=== PATIENT | male | born 1980 | race Caucasian/White ===

== ENCOUNTER 2022-03-22 09:22 | Emergency (ER) | payer OTHER, SELFPAY ==
[2022-03-22] VITALS (8 sets, daily range): BP systolic 131–136; BP diastolic 72–87; PULSE 71–77; RESP 16–18; TEMP 36.9; O2SAT 97–99; BMI 27.9
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
--- NOTE | 2022-03-22 09:56 | EKG12_ITS ---
Test Reason : Blood Pressure : / mmHG Vent. Rate : 073 BPM Atrial Rate : 073 BPM P-R Int : 150 ms QRS Dur : 088 ms QT Int : 380 ms P-R-T Axes : 069 -04 023 degrees QTc Int : 418 ms Normal sinus rhythm Normal ECG Confirmed by TASHA HULL MD ([id number]), advertising editor DUSTY BAILEY ([id number]) on 03/27/2022 12:46:37 PM Referred By: BB Confirmed By:TASHA HULL MD
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
--- NOTE | 2022-03-22 09:59 | NURSING ---
NO OLD EKGS
[2022-03-22 10:30] LABS: Absolute Lymphocyte Count 1.35 X10^3/uL (0.83-4.51); Absolute Neutrophil Count 4.6 X10^3/uL (2.0-7.7); Basophil# 0.08 X10^3/uL; Basophil% 1.2 % (0-1); Eosinophils% 1.5 % (0-5); Hematocrit 47.8 % (40-54); Hemoglobin 16.3 g/dL (13.0-16.5); Lymphocyte # 1.35 X10^3/ul (0.83-4.51); Lymphocyte % 20.1 % (19-41); Mean Corp Hgb Conc 34.1 g/dL (32-36); Mean Corpuscular Hgb 30.5 pg (27.0-32.0); Mean Corpuscular Volume 89.3 fL (80-94); Mean Platelet Vol. 8.6 fl (6.2-12.0); Monocyte# 0.64 X10^3/uL; Monocyte% 9.5 % (0-10); NRBC Flagged by Analyzer 0 % (0-5); Neutrophil # 4.55 X10^3/uL (2.7-7.7); Neutrophil % 67.6 % (47-70); Platelet Count 322 K/mm3 (150-450); RBC Distribution Width CV 12.3 % (11.6-14.6); RBC Distribution Width SD 40.3 fl (35.1-43.9); Red Blood Count 5.35 M/mm3 (4.6-6.2); White Blood Count 6.7 K/mm3 (4.4-11.0)
[2022-03-22 10:55] LABS: ALB/GLOB Ratio 1.2 RATIO (0.9-2.4); AST(SGOT) 15 U/L (15-37); Alanine Aminotransfer ALT/SGPT 34 U/L (16-61); Albumin, Serum 4.1 g/dL (3.2-5.0); Alkaline Phosphatase 100 U/L (45-117); Anion Gap 6 (5-15); BUN 12 mg/dL (7-18); BUN/Creat Ratio 12.3 RATIO (10-20); Calcium,Total 9.4 mg/dL (8.5-10.1); Chloride 104 mmol/L (98-107); Creatinine, Serum 0.97 mg/dL (0.70-1.30); EST Glomerular Filtration Rate 90 mL/min (>60); Est Glom Filt Rate - Afr Amer 109 mL/min (>60); Estimated Creatinine Clearance 102.43 ml/min; Globulin 3.4 g/dL (2.2-4.2); Glucose 103 mg/dL (74-106); Potassium 4.1 mmol/L (3.5-5.1); Protein, Total 7.5 g/dL (6.4-8.2); Sodium Level 138 mmol/L (136-145)
[2022-03-22 11:05] LABS: Alcohol, Blood (Medical)-Serum < 3.0 mg/dL
[2022-03-22 11:11] LABS: Amphetamine Urine VISTA NEGATIVE (<1000 ng/mL); Barbiturate Urine VISTA NEGATIVE (< 200 ng/mL); Benzodiazepine Urine VISTA NEGATIVE (< 200 ng/mL); Cocaine Urine VISTA NEGATIVE (< 300 ng/mL); Ecstacy Urine VISTA NEGATIVE (< 500 ng/mL); Methadone Urine VISTA NEGATIVE (< 300 ng/mL); PCP Urine VISTA NEGATIVE (< 25 ng/mL); THC Urine VISTA NEGATIVE (< 50 ng/mL); Vista UDS pH Range 7
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
[2022-03-22] MEDS: Ziprasidone IM 20 MG/ML VIAL IM (11:55)
--- NOTE | 2022-03-22 12:02 | ED.RN ---
Pt walked out of pt's room, charge nurse, AMANDA Rodriguez, and other nurses explained to pt that he is pink slipped and could not leave. per BRIAN Crabtree SO who brought pt did explain the pink slip however pt claims that did not happen. Pt started yelling curse words and stated this is fucking ridiculous Dr. Pineda gave verbal order for Geodon 20 mg. security and police called to bedside for help if needed. pt agree to take injection.
--- NOTE | 2022-03-22 12:05 | CM.ED ---
Social Work Telephone call to [facility] as patient only has VA insurance, no answer. voicemail left for admissions. Will continue to follow. Unable to work on other placement options until confirmed that VA is or not able to accept patient. Marcos ROBERTS, ANDRE-S
--- NOTE | 2022-03-22 13:16 | ED.RN ---
Pt's wallet is with security.
--- NOTE | 2022-03-22 13:41 | ED.RN ---
ZOIE HOOVER - (SISTER) REQUESTS TO BE NOTIFIED ON ANY CHANGES AND UPDATES [phone]
--- NOTE | 2022-03-22 13:49 | CM.ED ---
Social Work Telephone call to [facility], transfer center. No answer. Voicemail left. Oh note: This manager social responsibility was able to speak with another person at [facility] that confirmed the contact number for the transfer center and confirmed that the transfer center is where the referral will start. Will continue to follow. Marcos ROBERTS, ANDRE-S
--- NOTE | 2022-03-22 16:23 | CM.ED ---
Social Work Telephone call to [facility] transfer center. No answer. This manager social services did not want to leave another voicemail as to fill up the voicemail with multiple of the same. This manager social services attempted to contact psych unit at [facility] and was able to speak with a staff member. This manager social services advised that the transfer center will need to reach out before patient case can be reviewed or clinical information can be faxed. Staff on the floor advised this manager social services that there is nothing else you can do but wait for the return call. Medical team updated. Marcos ROBERTS, MIKKI
--- NOTE | 2022-03-22 20:15 | CM.ED ---
Social Work Telephone call to [facility]. Handoff provided. Clinical information faxed in the event that placement can be found overnight. Telephone call to [facility], transfer line continues to not be answering and another voicemail left for transfer center to call main ED as end of social work shift. Medical team updated on above. Marcos Gonzalez MSW, VAISHALIS
--- NOTE | 2022-03-22 20:22 | CM.ED ---
Social Work This social media marketer to patient room to update patient on status of case. Patient updated that currently waiting on [facility]ie [facility] to get in contact with [facility] ED to be able to establish placement. Patient voiced frustration and continues to ask about leaving ED. This social media marketer educating patient further on pink slip being in place. Patient inquired about getting pink slip removed removed. This social media marketer educated patient that patient going to an inpatient psychiatric facility will help with pink slip being resolved. Patient states this is annoying and does not speak further to this social media marketer. Marcos Gonzalez MSW, MIKKI
[2022-03-23] VITALS (15 sets, daily range): BP systolic 122–155; BP diastolic 80–96; PULSE 61–88; RESP 15–18; O2SAT 97–100
--- NOTE | 2022-03-23 01:13 | NURSING ---
taken care over for alaina
--- NOTE | 2022-03-23 05:16 | NURSING ---
I CALLED THE VA TWICE. ONCE AT 4:45AM AND AGAIN AT 5:05AM AND EACH TIME WHEN I WAS DIRECTED TO THE TRANSFER LINE I DID NOT GET ANY ANSWER. THE LINE JUST RANG
--- NOTE | 2022-03-23 08:06 | NURSING ---
THE [facility] NURSE TOLD ME TO CALL THE VA FIRST THING THIS MORNING TO TOUCH BASE AND SEE WHAT WAS GOING ON FAR THE VA ACCEPTING THIS PATIENT. WHEN I CALLED THE VA EVERY PERSON I TALKED TO WAS VERY RUDE. THEY SAID THEY HAD NO RECORD OF ANYONE CALLING ABOUT THIS PATIENT. I GAVE THE INFORMATION AGAIN TO THEM AND THEY SAID THEY WOULD LOOK INTO IT AND PASS IT ON TO A BANK WORKER.
--- NOTE | 2022-03-23 09:09 | ED.RN ---
This RN spoke with [facility] center nurse from the [place]. She states patient is not within network so he would be responsible for transportation. she left us with her contact information and to have the clinical chart faxed to the [place] to work on psych bed. Her #is [phone] ext [phone]. chart to be faxed to [phone]
--- NOTE | 2022-03-23 10:47 | CM.ED ---
Addendum entered by Cecille Pringle 03/23/22 11:06: Cecille states that pt has to be a resident for more than 30 days. AMANDA informed Cecille that pt is not service connected enough to get transportation benefits. Cecille states that pt will get a bill and will need to private pay for transportation as crisis will not pay for transportation. Addendum entered by Cecille Pringle 03/23/22 11:05: AMANDA reviewed chart. It appears pt has just recently moved to [place] (within the last few days). AMANDA placed a call to [facility] and spoke with Cecille. Cecille states that since pt has insurance, they cannot pay for transportation. Cecille also states pt has to be a resident for 30 daus Original Note: Social Work Note AMANDA placed a call to [facility] and spoke with Viridiana. Viridiana states she has no updates, waiting to hear back from VA. SW in to speak with pt. Pt states that he see's a neurologist and other doctor at [facility]. Pt states that he recently moved to the area. AMANDA informed pt that SW is working on getting pt placed, will keep him updated. AMANDA placed a call to Jeana at [facility]. Jeana states the chart has been given to their psychiatrist, waiting for the doctor to review. AMANDA updated Jeana that pt is VA connected in [place]. Jeana states that because SW contacted VA transfer, their psychiatrist at [facility] is able to review it. Jeana states that if the [facility] Psychiatrist does not accept then that is when Pt would need to look into going to the [facility] location. Jeana statesd that pt has no transportation benefits. AMANDA placed a call to Crisis and spoke with Cecille that [facility] is supposed to let this worker know determination on pt but that pt does not have transportation benefits so Crisis will need to assist with transportation. Cecille Pringle COST CONSULTANT, BUILDING EQUIPMENT INSPECTOR
--- NOTE | 2022-03-23 12:20 | CM.ED ---
Addendum entered by Cecille Pringle 03/23/22 13:15: Transportation is at [facility] now to transport pt. AMANDA placed a call to Jeana at [place] and updated her. Jeana states she was just called and updated and also asked for RN to call report. AMANDA updated intellectual property counsel that RN will need to call transport. Addendum entered by Cecille Pringle 03/23/22 12:23: Physician Miriam* Original Note: Social Work Note AMANDA received call from Jeana at [facility] stating pt has been accepted to [facility]. Accepting physician Dr. Verdin. Pt will have to go through Main ER and then they will take pt from there. RN to RN is [phone] ext: [phone]. AMANDA updated Physician Lucy. AMANDA faxed [place] and COVID test to [facility]. AMANDA updated that CT called pt on his phone and updated him on acceptance. Cecille Pringle ORACLE SOA CONSULTANT, SALES EXEC
--- NOTE | 2022-03-23 13:22 | NURSING ---
TRI CALLED TO JE PEACOCK AT THIS TIME.
== END 2022-03-23 13:22 ==
PROVIDERS: Emergency Medicine; Emergency Provider Emergency Medicine; Visit Provider Emergency Medicine
DX: R45.851 Suicidal ideations (principal); G10 Huntington's disease; F32.A Depression, unspecified
CPT/HCPCS: 80053; 80307; 82077; 85025; 87635; 87811; 93005; 96372; 99285; J3486; U0003; U0005

== ENCOUNTER 2024-10-08 14:01 | Emergency (ER) | payer MEDICAID, SELFPAY ==
[2024-10-08 14:03] VITALS: BP 130/86; PULSE 86; RESP 20; TEMP 36.4; O2SAT 95; BMI 34.5
[2024-10-08 14:34] VITALS: RESP 18
[2024-10-08 15:07] LABS: Absolute Lymphocyte Count 1.65 X10^3/uL (0.83-4.51); Absolute Neutrophil Count 6.4 X10^3/uL (2.0-7.7); Basophil# 0.08 X10^3/uL; Basophil% 0.9 % (0-1); Eosinophil# 0.23 X10^3/uL; Eosinophils% 2.5 % (0-5); Hematocrit 44.4 % (40-54); Lymphocyte # 1.65 X10^3/ul (0.83-4.51); Lymphocyte % 18.1 % (19-41); Mean Corp Hgb Conc 33.8 g/dL (32-36); Mean Corpuscular Hgb 29.6 pg (27.0-32.0); Mean Corpuscular Volume 87.7 fL (80-94); Mean Platelet Vol. 8.4 fl (6.2-12.0); Monocyte# 0.75 X10^3/uL; Monocyte% 8.2 % (0-10); NRBC Flagged by Analyzer 0 % (0-5); Neutrophil # 6.38 X10^3/uL (2.7-7.7); Neutrophil % 70.2 % (47-70); Platelet Count 287 K/mm3 (150-450); RBC Distribution Width CV 12.7 % (11.6-14.6); RBC Distribution Width SD 40.3 fl (35.1-43.9); Red Blood Count 5.06 M/mm3 (4.6-6.2); White Blood Count 9.1 K/mm3 (4.4-11.0)
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
[2024-10-08 15:17] LABS: Bacteria 0 SEEN /hpf (None Seen); Red Blood Cells-Urine 0 SEEN /hpf (0-5); Squamous Epithelial Cells - UA 0 SEEN /hpf (0-5)
[2024-10-08 15:19] LABS: Color, Urine Yellow (Yellow); Glucose, Dipstick Normal (Normal); Ketone-Dipstick Negative (Negative); Leukocyte Esterase-Dipstick 25 /ul (Negative); Nitrite-Dipstick Negative (Negative); Occult Blood-Urine Negative /ul (Negative); Protein-Dipstick 15 mg/dl (Negative); Urine Bilirubin Dipstick Negative (Negative); Urine Clarity Clear (Clear); Urine Urobilinogen Normal (Normal); Urine pH 6.5 (5.0 - 8.0)
[2024-10-08 15:21] LABS: Amphetamine Urine VISTA NEGATIVE (<1000 ng/mL); Barbiturate Urine VISTA NEGATIVE (< 200 ng/mL); Benzodiazepine Urine VISTA NEGATIVE (< 200 ng/mL); Cocaine Urine VISTA NEGATIVE (< 300 ng/mL); Ecstacy Urine VISTA NEGATIVE (< 500 ng/mL); Methadone Urine VISTA NEGATIVE (< 300 ng/mL); PCP Urine VISTA NEGATIVE (< 25 ng/mL); THC Urine VISTA NEGATIVE (< 50 ng/mL); Vista UDS pH Range 6
[2024-10-08 15:26] LABS: Mucous, Urine 1+ /hpf (<or=2+); White Blood Cells 0-5 SEEN /hpf (0-5)
[2024-10-08 15:26] LABS: Alcohol, Blood (Medical)-Serum < 3.0 mg/dL
[2024-10-08 15:29] LABS: Anion Gap 5 (5-15); BUN 17 mg/dL (7-18); BUN/Creat Ratio 15.5 RATIO (10-20); Calcium,Total 9.2 mg/dL (8.5-10.1); Chloride 108 mmol/L (98-107); EST Glomerular Filtration Rate 77 mL/min (>60); Est Glom Filt Rate - Afr Amer 93 mL/min (>60); Estimated Creatinine Clearance 104.93 ml/min; Glucose 126 mg/dL (74-106); Potassium 3.5 mmol/L (3.5-5.1); Sodium Level 141 mmol/L (136-145)
--- NOTE | 2024-10-08 15:30 | ED.RN ---
Pt agitated, difficult to redirect, attempting to leave, thrashing in bed, unstable on feet with concern for fall/pt safety. Meds requested from MD to assist in calming pt and keeping pt safe.
[2024-10-08] MEDS: Ziprasidone IM 20 MG/ML VIAL IM (15:35)
[2024-10-08] MEDS: Acetaminophen 325 MG Tablet 650 MG PO (15:35)
--- NOTE | 2024-10-08 15:49 | NURSING ---
[facility] CONTACTED FOR EVAL
[2024-10-08] MEDS: LORazepam 2 MG/ML Syringe IM (16:33)
--- NOTE | 2024-10-08 19:26 | ED.RN ---
KLETON FROM [facility] CALLED, SHE STATED THEY WERE REFERRING PT TO [facility]. SHE REQUESTED WE FAX A MED LIST TO [facility], AND SHE WOULD LET US KNOW IF THEY'D LIKE AN EKG DONE. FAXING MED LIST @ 1929.
--- NOTE | 2024-10-08 19:30 | ED.RN ---
Pt asked by this RN for permission to contact father in regards to completing pt's medication list. Father contacted and medication list completed. Father has no further questions at this time.
--- NOTE | 2024-10-08 20:44 | EKG12_ITS ---
Test Reason : [facility] [place] Blood Pressure : */* mmHG Vent. Rate : 82 BPM Atrial Rate : 82 BPM P-R Int : 172 ms QRS Dur : 90 ms QT Int : 358 ms P-R-T Axes : 70 25 36 degrees QTcB Int : 418 ms Normal sinus rhythm Normal ECG Confirmed by KURTIS NAVARRETE, TASHA ([id number]), publications editor TERRELL LEVY ([id number]) on 10/10/2024 6:26:41 AM Referred By: Confirmed By: TASHA HULL MD
--- NOTE | 2024-10-08 20:54 | ED.RN ---
earnest from [facility] called with accepting info for pt to [facility]. faxing pink slip and ekg to facility @ [phone].
--- NOTE | 2024-10-08 23:10 | ED.RN ---
Pt father called and left voicemail about transfer to [facility].
[2024-10-08 23:16] VITALS: BP 130/86; PULSE 86; RESP 16; TEMP 36.4; O2SAT 95
== END 2024-10-08 23:19 ==
PROVIDERS: Emergency Provider Emergency Medicine; Visit Provider Emergency Medicine
DX: R45.6 Violent behavior (principal); G10 Huntington's disease
CPT/HCPCS: 80048; 80307; 81001; 82077; 85025; 87631; 93005; 96372; 96374; 99284; J3486

== ENCOUNTER 2025-06-26 16:31 | Emergency (ER) | payer MEDICAID, SELFPAY ==
[2025-06-26 16:31] VITALS: BP 154/103; PULSE 79; RESP 16; TEMP 36.7; O2SAT 97; BMI 25.4
--- OUTSIDE RECORDS SUMMARY | 2025-06-26 17:39 | XMS RPT_ITS | CCD ---
Author Organization [facility] Care Team Providers Care Automotive Product Specialist Name Role Phone [facility] Unavailable MONICA LAM Attending Unavailable [facility] Primary Care Provider [phone] [facility] AC GOULD Attending Unavail able AC GOULD Attending Unavail [facility] SUDHAKAR CRUZ Attending Unavailab [facility] COOPER CUMMINGS Attending DORENE Hamilton Referring Unavailable DORENE OQUENDO Attending Unavailable Unavailable Primary Care Provider Unavailnima e Ray VIDEO GAME TECHNICIAN.Jessa PONCE Primary Care Provider Ray VIDEO GAME TECHNICIAN.Jessa PONCE Primary Care Provider JESSA MCGRATH Primary Care Unavailable ANANYA FERNANDEZ Referring Unavailable WALESKA OBRIEN Attending Unavailable JESSA MCGRATH Primary Care Unavailable JESSA MCGRATH Primary Care Unavailable JESSA MCGRATH Primary Care Unavailable JESSA MCGRATH Primary Care Unavailable JESSA MCGRATH Primary Care Unavailable JESSA MCGRATH Primary Care Unavailable JESSA MCGRATH Primary Care Unavailable PHYLLIS MELENDEZ Attending Unavailable MANDI RICO Referring Unavailable JESSA MCGRATH Primary Care Unavailable [place] Primary [facility] Unavailable Alberto Abdalla Attending Unavailable JESSA MCGRATH Attending Unavailable JESSA MCGRATH Referring Unavailable JESSA MCGRATH Primary Care Unavailable JESSA MCGRATH Attending Unavailable SELF Referring Unavailable JESSA MCGRATH Primary Care Unavailable Medications Current Medications Medication Drug Class(es) Dates Sig (Normalized) Sig (Original) ascorbic acid 500 mg oral tablet (2 sources) Vitamin C Start: 10-15-2024 take 1 tablet by mouth once daily VITAMIN C 500 mg tablet Take 500 mg by mouth once daily. 10/15/2024 Active Start: 03-22-2022 take 1 tablet by mouth once da mili Ascorbic Acid (Vitamin C) (Vitamin C) 500 mg Tablet Active 500 MG PO DAILY March 22, 2022 12:00am atorvastatin 20 mg oral tablet (11 sources) HMG-CoA Reductase Inhibitor Start: 10-17-2022 take 1 tablet by mouth once daily atorvastatin (LIPITOR) 20 mg tablet Take 20 mg by mouth once daily. 10/17/2022 Active Comment on above: 20 mg. doxycycline hyclate 100 mg oral tablet (4 sources) Tetracycline-cla ss Drug Start: 09-11-2024 End: 09-18-2024 take 1 tablet by mouth twice daily doxycycline (VIBRA-TABS) 100 mg tablet Take 1 tablet by mouth two times a day for 7 days. 14 tablet 09/11/2024 09/18/2024 Active Start: 07-11-2024 End: 07-16-2024 take 1 tablet by mouth twice daily doxycycline (VIBRA-TABS) 100 mg tablet Take 1 tablet by mouth two times a day for 5 days. 10 tablet 07/11/2024 07/16/2024 Active Start: 09-15-2023 End: 09-22-2023 take 1 tablet by mouth twice daily doxycycline (VIBRA-TABS) 100 mg tablet Take 1 tablet by mouth two times a day for 7 days. 14 tablet 0 09/15/2023 09/22/2023 Active Start: 08-26-2017 End: 09-05-2017 take 1 capsule by mouth twice daily doxycycline hyclate (VIBRAMYCIN) 100 MG capsule Indications: Cellulitis and abscess of leg Take 1 (one) capsule (100 mg total) by mouth 2 (two) times a day for 10 days. 20 capsule 0 08/26/2017 09/05/2017 Active Comment on above: Take 1 tablet by erum two times a day for 7 days. Fish Oils (1 source) Start: 01-08-20 25 take 1 capsule by mouth once daily FISH OIL 300-1,000 mg cap Take 1 capsule by mouth once daily. 10/15/2024 Active fluconazole 150 mg oral tablet (2 sources) Azole Antifungal Start: 11-25-19 End: 11-25-19 21 take 1 tablet by mouth once, then take 1 tablet by mouth, then take 1 tablet by mouth fluconazole (DIFLUCAN) 150 MG tablet Take 1 (one) tablet (150 mg total) by mouth once Take 1 tab by mouth now. Then, in 7 days you may take the other tablet if you still have signs of a yeast infection. for 1 dose . 2 tablet 2 11/25/2020 11/25/2020 Active hydrOXYzine pamoate 50 mg oral capsule (1 source) Antihistamine Start: 10-21-19 take 1 capsule by mouth every twelve hours as needed hydrOXYzine pamoate (VISTARIL) 50 mg capsule Take 50 mg by mouth two times a day as needed for anxiety. 10/21/2024 Active loratadine 10 mg oral tablet (1 source) Start: 09-15-20 23 End: 10-15-19 24 take 1 tablet by mouth once daily loratadine (CLARITIN) 10 mg tablet Take 1 tablet by mouth once daily. 30 tablet 0 09/15/2023 10/15/2023 Active Comment on above: Take 1 tablet by erum th once daily. Multivitamin (Multi-Day) Tablet (1 source) Start: 03-22-20 take 1 tablet by mouth once daily Multivitamin (Multi-Day) Tablet Active 1 TABLET PO DAILY March 22, 2022 12:00am multivitamin tablet (1 source) Start: 10-15-19 25 take 1 tablet by mouth once daily multivitamin tablet Take 1 tablet by mouth once daily. 10/15/2024 Active Channing-3 Fatty Acids-Vitamin E (Fish Oil) 1,000 mg Capsule (1 source) Start: 03-22-20 22 take 1 capsule by mouth once daily Channing-3 Fatty Acids-Vitamin E (Fish Oil) 1,000 mg Capsule Active 1 CAP PO DAILY March 22, 2022 12:00am oxymetazoline hydrochloride 0.5 mg/ml nasal spray (1 source) Start: 07-21-20 24 End: 07-26-20 24 oxymetazoline (AFRIN, OXYMETAZOLINE,) 0.05 % nasal spray Use 2 Sprays in each nostril two times a day for 5 days. 22 mL 07/21/2024 07/26/2024 Active tetrabenazine 12.5 mg oral tablet (8 sources) Vesicular Monoamine Transporter 2 Inhibitor Start: 12-07-19 End: 12-08-19 take 1 tablet by mouth once daily in the morning tetrabenazine (XENAZINE) 12.5 mg tablet Take 1 tablet by mouth every morning. 12/07/2023 Active Completed/Discontinued Medications Medication Drug Class(es) Dates Sig (Normalized) Sig (Original) acetaminophen 325 mg / HYDROcodone bitartrate 5 mg oral tablet (1 source) Opioid Agonist Start: 06-12-2020 End: 06-12-2020 HYDROcodone-acetam inophen (NORCO) 5-325 mg per tablet 1 tablet amoxicillin 875 mg / clavulanate 125 mg oral tablet (3 sources) Penicillin-class Antibacterial Start: 07-11-2024 End: 07-11-2024 take 1 tablet by mouth twice daily amoxicillin-clavul anate potassium (AUGMENTIN) 875-125 mg per tablet Take 1 tablet by mouth two times a day for 5 days. 10 tablet 07/11/2024 07/11/2024 Discontinued (Other) Start: 05-14-2024 End: 05-21-2024 take 1 tablet by mouth twice daily amoxicillin-clavulanate potassium (AUGMENTIN) 875-125 mg per tablet Take 1 tablet by mouth two times a day for 7 days. 14 tablet 0 05/14/2024 05/21/2024 Active Start: 09-05-2023 End: 09-10-2023 take 1 tablet by mouth twice daily amoxicillin-clavulanate potassium (AUGMENTIN) 875-125 mg per tablet Indications: Bacterial sinusitis Take 1 tablet by mouth two times a day for 5 days. 10 tablet 0 09/05/2023 09/10/2023 Active Comment on above: Take 1 tablet by erum two times a day for 5 days. azelastine hydrochloride 0.137 mg/actuat metered dose nasal spray (3 sources) Histamine-1 Receptor Antagonist Start: 05-09-20 End: 06-11-20 take 2 spray(s) nasal route once daily at bedtime azelastine 0.1% nasal spray Use 2 Sprays in each nostril daily at bedtime. 30 mL 5 05/09/2024 06/11/2024 Discontinued cetirizine hydrochloride 10 mg oral tablet (10 sources) Histamine-1 Receptor Antagonist Start: 03-07-20 End: 01-28-20 take 1 tablet by mouth once daily cetirizine (ZYRTEC) 10 mg tablet Indications: Seasonal allergic rhinitis, unspecified trigger Take 1 tablet by mouth once daily. 30 tablet 1 03/07/2024 01/27/2025 Discontinued fluticasone propionate 0.05 mg/actuat metered dose nasal spray (7 sources) Corticosteroid Start: 09-15-20 End: 06-11-20 take 2 spray(s) by mouth once daily fluticasone (FLONASE) 50 mcg/actuation nasal spray Indications: Seasonal allergic rhinitis, unspecified trigger Use 2 Sprays in each nostril once daily. Rinse mouth after use. 1 Each 1 03/07/2024 06/11/2024 Discontinued Comment on above: Use 2 Sprays in each nostril once daily. Rinse mouth after use. risperiDONE 1 mg oral tablet (11 sources) Atypical Antipsychotic Start: 08-13-20 End: 01-28-20 25 risperiDONE (RISPERDAL) 1 mg tablet 08/13/2023 01/27/2025 Discontinued sod jjvkh-xrftwz-optwmc bottle (NEILMED SINUS RINSE COMPLETE) pkdv (6 sources) Start: 07-29-20 End: 01-28-20 sod vmeno-yffbkq-xwsxur bottle (NEILMED SINUS RINSE COMPLETE) pkdv Dissolve one packet or sachet in 8 oz (240 mL) or lukewarm distilled, previously boiled or bottled water. Use as directed per package instructions 30 Each 07/29/2024 01/27/2025 Discontinued Start: 07-29-2024 sod chlor-bica rb-squeez bottle (NEILMED SINUS RINSE COMPLETE) pkdv Dissolve one packet or sachet in 8 oz (240 mL) or lukewarm distilled, previously boiled or bottled water. Use as directed per package instructions 30 Each 07/29/2024 Active Start: 07-21-2024 End: 07-29-2024 sod ucvfu-wdcvyo-xxcfgk sonam le (NEILMED SINUS RINSE COMPLETE) pkdv Dissolve one packet or sachet in 8 oz (240 mL) or lukewarm distilled, previously boiled or bottled water. Use as directed per package instructions 30 Each 07/21/2024 07/29/2024 Discontinued Start: 07-21-2024 sod chlor-bica rb-squeez bottle (NEILMED SINUS RINSE COMPLETE) pkdv Dissolve one packet or sachet in 8 oz (240 mL) or lukewarm distilled, previously boiled or bottled water. Use as directed per package instructions 30 Each 07/21/2024 Active triamcinolone acetonide 0.055 mg/actuat metered dose nasal spray (7 sources) Corticosteroid Start: 06-11-2024 End: 01-27-2025 take 2 spray(s) nasal route once daily triamcinolone acetonide (NASACORT AQ) 55 mcg nasal inhaler Use 2 Sprays in each nostril once daily. 16.9 mL 11 06/11/2024 01/27/2025 Discontinued Problems Active Problems Problem Classification Problem Date Documented Da te Episodic/Chronic Anxiety disorders (1 source) Violent behavior; Translations: [Violent behavior] Onset: 11-03-2024 Chronic Disorders of lipid metabolism (13 sources) Mixed hyperlipidemia; Translations: [Mixed hyperlipidemia] Onset: 10-09-2023 10-09-2023 Chronic External cause codes: Fall (1 source) Fall; Translations: [Fall, initial encounter] Mood disorders (1 source) Depressive disorder; Translations: [Depression with suicidal ideation] Chronic Mycoses (1 source) Tinea pedis; Translations: [Tinea pedis of both feet] Episodic Other connective tissue disease (1 source) Pain in right arm; Translations: [Pain of right upper extremity] Episodic Other hereditary and degenerative nervous system conditions (13 sources) Philo's chorea; 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] Onset: 10-09-2023 10-09-2023 Chronic Other hereditary and degenerative nervous system conditions (1 source) Philo's disease; 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)] Onset: 10-09-2023 Chronic Other injuries and conditions due to external causes (1 source) Abrasion AND/OR friction burn of multiple sites; Translations: [Multiple abrasions] Episodic Other non-traumatic joint disorders (1 source) Pain in elbow; Translations: [Right elbow pain] Episodic Other non-traumatic joint disorders (1 source) Shoulder pain; Translations: [Acute pain of right shoulder] Episodic Other non-traumatic joint disorders (1 source) Effusion, right elbow; Translations: [Effusion of right elbow] Episodic Other nutritional; endocrine; and metabolic disorders (10 sources) Body mass index 40+ - severely obese; Translations: [Morbid (severe) obesity due to excess calories] Onset: 10-09-2023 10-09-2023 Chronic Other upper respiratory disease (1 source) Seasonal allergic rhinitis; Translations: [Other seasonal allergic rhinitis] 03-07-2024 Chronic Other upper respiratory disease (4 sources) Chronic rhinitis; Translations: [Chronic rhinitis] 05-09-2024 Chronic Other upper respiratory disease (1 source) Non-allergic rhinitis; Translations: [Chronic rhinitis] 06-11-2024 Chronic Other upper respiratory disease (1 source) Chronic rhinitis; Translations: [Chronic rhinitis] Onset: 06-11-2024 Chronic Other upper respiratory disease (1 source) Sneezing; Translations: [Sneezing] 03-07-2024 Episodic Other upper respiratory disease (1 source) Congestion of nasal sinus; Translations: [Nasal congestion] 07-11-2024 Episodic Other upper respiratory disease (1 source) Nasal congestion; Translations: [Nasal congestion] 07-29-2024 Episodic Other upper respiratory infections (3 sources) Bacterial sinusitis; Translations: [Chronic sinusitis, unspecified] 09-05-2023 Chronic Past or Other Problems Problem Classification Problem Date Documented Da te Episodic/Chronic Other upper respiratory disease (1 source) Sneezing; Translations: [Sneezing] Onset: 05-09-2024 Episodic Other upper respiratory infections (1 source) Upper respiratory infection Onset: 07-29-2024 Episodic Skin and subcutaneous tissue infections (1 source) Cellulitis and abscess of lower limb Episodic Results Test Name Value Interpretation Reference Range Facility [facility] 01-27-2025 CNOV Office Visit (AGINTM LW) ----- JUAN RAMON BRYSON ([id number]) 1980 M Date Time Provider Department 01/27/25 1:40 PM JESSA MCGRATH AGINTMLW During your visit today, we recorded the following information about you: Pulse Respiration Blood pressure Weight 56/minute 18/minute 124/68 95.1 kg Height 1.778 m Jessa Mcgrath, VIDEO GAME TECHNICIAN.CODING DIRECTOR 01/27/2025 2:12 PM Signed This note was created using Reclip.Itter. Subjective Juan Ramon Bryson is a 44 year old male here today for [facility]. 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 He goes to [facility] for all of his care. He is here today with his Dad. Patient denies changes in health since last office visit. Reports feeling well. Denies concerns or complaints today. I reviewed patients past medical, surgical, social, and family histories today and updated chart. Allergies, chronic medications, and supplements were also reviewed and list is now up to date. HLD: He is taking atorvastatin 20 mg daily. He is tolerating this well. 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 He reports starting symptoms ~ 5 yrs ago. states his mother had it and from this. He is seeing neurologist at the [facility] for management. He is taking tetrabenazine 12.5 mg once daily. He reports this has been effective. He reports symptoms include muscle spasms, anxiety, father reports he is very fidigity. Preventative: all completed by [facility]. He is up to date with flu and COVID vaccines. He reports having colonoscopy 06/2024 at the [facility]. Some elements of above documentation were copied from my progress note of 07/29/24 and have been reexamined and updated where appropriate. All elements reflect the current assessment and medical decision making today . ALLERGIES No Known Allergies Current Outpatient Medications Medication Sig Dispense Refill VITAMIN C 500 mg tablet Take 500 mg by mouth once daily. hydrOXYzine pamoate (VISTARIL) 50 mg capsule Take 50 mg by mouth two times a day as needed for anxiety. multivitamin tablet Take 1 tablet by mouth once daily. FISH OIL 300-1,000 mg cap Take 1 capsule by mouth once daily. tetrabenazine (XENAZINE) 12.5 mg tablet Take 1 tablet by mouth every morning. cetirizine (ZYRTEC) 10 mg tablet Take 1 tablet by mouth once daily. 30 tablet 1 atorvastatin (LIPITOR) 20 mg tablet Take 20 mg by mouth once daily. No current facility-administered medications for this visit. 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 HENT: Negative. Eyes: Negative for visual disturbance. Respiratory: Negative for cough, choking, chest tightness, shortness of breath and wheezing. Cardiovascular: Negative for chest pain, palpitations and leg swelling. Gastrointestinal: Negative for abdominal pain, constipation and diarrhea. Endocrine: Negative. Genitourinary: Negative. Negative for difficulty urinating. Musculoskeletal: Negative. Skin: Negative. Neurological: Positive for speech difficulty and weakness. Negative for dizziness, tremors, light-headedness, numbness and headaches. Tremors Psychiatric/Behavioral: Negative for dysphoric mood and sleep disturbance. The patient is not nervous/anxious. Objective BP 124/68 Pulse (!) 56 Resp 18 Ht 177.8 cm (5' 10) Wt 95.1 kg (209 lb 9.6 oz) SpO2 97% BMI 30.07 kg/m? Physical Exam Vitals and nursing note reviewed. Constitutional: General: He is not in acute distress. Appearance: Normal appearance. He is not ill-appearing or diaphoretic. HENT: Head: Normocephalic and atraumatic. Right Ear: External ear normal. Left Ear: External ear normal. Nose: Nose normal. No congestion or rhinorrhea. Mouth/Throat: Pharynx: No oropharyngeal exudate. Eyes: General: Lids are normal. No scleral icterus. Right eye: No discharge. Left eye: No discharge. Conjunctiva/sclera: Conjunctivae normal. Pupils: Pupils are equal, round, and reactive to light. Neck: Vascular: Normal carotid pulses. No carotid bruit. Cardiovascular: Rate and Rhythm: Normal rate and regular rhythm. Pulses: Normal pulses. Heart sounds: Normal heart sounds, S1 normal and S2 normal. No murmur heard. No friction rub. No gallop. Pulmonary: Effort: Pul (more content not included)... Normal [facility] 12 Lead EKGon 10-08-2024 12 Lead EKG [facility] [address] [place] [address] 12 Lead EKG 10/08/242047 MR#: [id number] Acct: [id number] Name: JUAN RAMON BRYSON Rep #: [id number] : 1980 44 From: Rudolph Vila MD Attending Dr: Status: DEP ER Ordering Dr: Alberto Abdalla MD Date: 10/08/24 Location: ED Sex: M C Admitted: Test Reason : MHC Blood Pressure : */* mmHG Vent. Rate : 82 BPM Atrial Rate : 82 BPM P-R Int : 172 ms QRS Dur : 90 ms QT Int : 358 ms P-R-T Axes : 70 25 36 degrees QTcB Int : 418 ms Normal sinus rhythm Normal ECG Confirmed by RUDOLPH VILA MD ([id number]), copy editor TERRELL LEVY ([id number]) on 10/10/2024 6:26:41 AM Referred By: Confirmed By: RUDOLPH VILA MD 10/10/24 0626 Date Rudolph Vila MD CC: Dr. Alberto Abdalla MD; [facility] Signed Normal [facility] Alcohol, Blood (Medical)-Ser umon 10-08-2024 SERUM ETOH < 3.0 Normal [facility] Comment on above: Result Comment: The serum:whole blood ethanol ratio is approximately 1.14 and varies slightly with hematocrit. Medical Alcohol reference interval and critical value in non-tolerant individuals; 50 - 100 Impairment 100 Intoxication 100 - 250 Severe Poisoning 250 - 400 Deep/possible fatal coma Performed By: #### L 100.0100, L505.5000, L500.2500, L501.9100 #### [facility] [address] [place], [address] Basic Metabolic Profile (BMP )on 10-08-2024 BUN/CRE 15.5 RATIO Normal 10-20 [facility] Comment on above: Performed By: #### L 100.0100, L505.5000, L500.2500, L501.9100 #### [facility] [address] [place], [address] CA,Total 9.2 mg/dL Normal 8.5-10.1 [facility] Comment on above: Performed By: #### L 100.0100, L505.5000, L500.2500, L501.9100 #### [facility] [address] [place], [address] Chloride [Moles/Vol] 108 mmol/L High 98-107 [facility] Comment on above: Performed By: #### L 100.0100, L505.5000, L500.2500, L501.9100 #### [facility] [address] [place], [address] CO2 [Moles/Vol] 27.0 mmol/L Normal 21.0-32.0 [facility] Comment on above: Performed By: #### L 100.0100, L505.5000, L500.2500, L501.9100 #### [facility] [address] [place], [address] Creatinine [Mass/Vol] 1.10 mg/dL Normal 0.70-1.30 [facility] Comment on above: Result Comment: The validity of the calculated GFR GFRAA in patients over 70 years has not been determined. Clinical correlation is essential. Performed By: #### L 100.0100, L505.5000, L500.2500, L501.9100 #### [facility] [address] [place], [address] ECRCL 104.93 ml/min Normal [facility] Comment on above: Performed By: #### L 100.0100, L505.5000, L500.2500, L501.9100 #### [facility] [address] [place], [address] EST GFR - AA 93 mL/min Normal >60 [facility] Comment on above: Result Comment: Afri can Tunisian GFR Calc Performed By: #### L 100.0100, L505.5000, L500.2500, L501.9100 #### [facility] [address] [place], [address] GAP 5 Normal 5-15 [facility] Comment on above: Performed By: #### L 100.0100, L505.5000, L500.2500, L501.9100 #### [facility] [address] [place], [address] GFR/1.73 sq M.predicted among non-blacks MDRD (S/P/Bld) [Vol rate/Area] 77 mL/min/{1.73_m2} Normal >60 [facility] Comment on above: Result Comment: Non- GFR Calc Performed By: #### L 100.0100, L505.5000, L500.2500, L501.9100 #### [facility] [address] [place], [address] Glucose [Mass/Vol] 126 mg/dL High 74-106 [facility] Comment on above: Result Comment: Fast ing Glucose result greater than or equal to 126 mg/dL suggests DIABETES MELLITUS per A.D.A. criteria. Performed By: #### L 100.0100, L505.5000, L500.2500, L501.9100 #### [facility] [address] [place], [address] Potassium [Moles/Vol] 3.5 mmol/L Normal 3.5-5.1 [facility] Comment on above: Performed By: #### L 100.0100, L505.5000, L500.2500, L501.9100 #### [facility] [address] [place], [address] Sodium [Moles/Vol] 141 mmol/L Normal 136-145 [facility] Comment on above: Performed By: #### L 100.0100, L505.5000, L500.2500, L501.9100 #### [facility] [address] [place], [address] Urea nitrogen [Mass/Vol] 17 mg/dL Normal 7-18 [facility] Comment on above: Performed By: #### L 100.0100, L505.5000, L500.2500, L501.9100 #### [facility] [address] [place], [address] CBC W/Diff, Automatedon 01-0 -2024 Absolute Lymph 1.65 X10 3/uL Normal 0.83-4.51 [facility] Comment on above: Performed By: #### L 100.0100, L505.5000, L500.2500, L501.9100 #### [facility] [address] [place], [address] Absolute Neut 6.4 X10 3/uL Normal 2.0-7.7 [facility] Comment on above: Performed By: #### L 100.0100, L505.5000, L500.2500, L501.9100 #### [facility] [address] [place], [address] Basophils/100 WBC (Bld) 0.9 % Normal 0-1 [facility] Comment on above: Performed By: #### L 100.0100, L505.5000, L500.2500, L501.9100 #### [facility] [address] [place], [address] Eosinophils/100 WBC (Bld) 2.5 % Normal 0-5 [facility] Comment on above: Performed By: #### L 100.0100, L505.5000, L500.2500, L501.9100 #### [facility] [address] [place], [address] Erythrocyte distribution width (RBC) [Ratio] 12.7 % Normal 11.6-14.6 [facility] Comment on above: Performed By: #### L 100.0100, L505.5000, L500.2500, L501.9100 #### [facility] [address] [place], [address] Hematocrit (Bld) [Volume fraction] 44.4 % Normal 40-54 [facility] Comment on above: Performed By: #### L 100.0100, L505.5000, L500.2500, L501.9100 #### [facility] [address] [place], [address] Hemoglobin (Bld) [Mass/Vol] 15.0 g/dL Normal 13.0-16.5 [facility] Comment on above: Performed By: #### L 100.0100, L505.5000, L500.2500, L501.9100 #### [facility] [address] [place], [address] IG% 0.100 Normal 0.0-0.9 [facility] Comment on above: Result Comment: IG% - Immature Granulocytes (promyelocytes, myelocytes and metamyelocytes) > 1% indicates that a LEFT SHIFT is Present. Performed By: #### L 100.0100, L505.5000, L500.2500, L501.9100 #### [facility] [address] [place], [address] Lymphocytes/100 WBC (Bld) 18.1 % Low 19-41 [facility] Comment on above: Performed By: #### L 100.0100, L505.5000, L500.2500, L501.9100 #### [facility] [address] [place], [address] MCH (RBC) [Entitic mass] 29.6 pg Normal 27.0-32.0 [facility] Comment on above: Performed By: #### L 100.0100, L505.5000, L500.2500, L501.9100 #### [facility] [address] [place], [address] MCHC (RBC) [Mass/Vol] 33.8 g/dL Normal 32-36 [facility] Comment on above: Performed By: #### L 100.0100, L505.5000, L500.2500, L501.9100 #### [facility] [address] [place], [address] MCV (RBC) [Entitic vol] 87.7 fL Normal 80-94 [facility] Comment on above: Performed By: #### L 100.0100, L505.5000, L500.2500, L501.9100 #### [facility] [address] [place], [address] Monocytes/100 WBC (Bld) 8.2 % Normal 0-10 [facility] Comment on above: Performed By: #### L 100.0100, L505.5000, L500.2500, L501.9100 #### [facility] [address] [place], [address] Neutrophils/100 WBC (Bld) 70.2 % High 47-70 [facility] Comment on above: Performed By: #### L 100.0100, L505.5000, L500.2500, L501.9100 #### [facility] [address] [place], [address] Nucleated RBC (Bld) [#/Vol] 0 10*3/uL Normal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 Constitutional: Negative for chills, fever and malaise/fatigue. HENT: Positive for congestion. Negative for ear discharge, ear pain, sinus pain and sore throat. Eyes: Negative for blurred vision, pain, discharge and redness. Respiratory: Negative for cough, hemoptysis, sputum production, shortness of breath, wheezing and stridor. Cardiovascular: Negative for chest pain. Gastrointestinal: Negative for abdominal pain, diarrhea, nausea and vomiting. Musculoskeletal: Negative for myalgias. Skin: Negative for itching and rash. Neurological: Negative for dizziness and headaches. Objective Physical Exam Constitutional: General: He is not in acute distress. Appearance: He is not diaphoretic. HENT: Head: Normocephalic. Jaw: No trismus, tenderness, swelling or pain on movement. Nose: Rhinorrhea present. Mouth/Throat: Mouth: Mucous membranes are moist. Pharynx: Oropharynx is clear. Uvula midline. No pharyngeal swelling, oropharyngeal exudate, posterior oropharyngeal erythema or uvula swelling. Eyes: Conjunctiva/sclera: Conjunctivae normal. Pupils: Pupils are equal, round, and reactive to light. Cardiovascular: Rate and Rhythm: Normal rate and regular rhythm. Heart sounds: Normal heart sounds. Pulmonary: Effort: Pulmonary effort is normal. No tachypnea, accessory muscle usage or respiratory distress. Breath sounds: Normal breath sounds. No stridor. No wheezing, rhonchi or rales. Musculoskeletal: Cervical back: Normal range of motion and neck supple. No edema, erythema, rigidity or tenderness. No pain with movement. Normal range of motion. Lymphadenopathy: Cervical: No cervical adenopathy. Skin: General: Skin is warm and dry. Neurological: Mental Status: He is alert and oriented to person, place, and time. ASSESSMENT/PLAN: 1. Chronic rhinitis - ICD9: 472.0, ICD10: J31.0 Diagnosed with chronic rhinitis. Will try short-term use of Afrin and nasal irrigation. Encouraged following up with ENT. Patient was educated on supportive therapies. Patient will follow up with primary care provider as needed. Patient was instructed to immediately proceed to emergency room for any new, worsening, or symptoms lasting longer than anticipated. The patient's clinical presentation is otherwise unremarkable at this time. Based on exam and clinical finding, the patient is stable for discharge. Plan of care was discussed with patient. Patient verbalizes understanding and agrees to plan of care. This note was generated using Voradius software. It may contain errors in wording, punctuation, or spelling. Himanshu Bird APRN.CODING DIRECTOR Allergies As of Date: 07/21/2024 (No Known Allergies) Date Reviewed: 07/21/2024 Reviewed by: Himanshu Bird APRN.CODING DIRECTOR - (more content not included)... Normal [facility] CNOVon 07-11-2024 [facility] Office Visit ([facility]WSTR ) ----- JUAN RAMON BRYSON ([id number]) 1980 M Date Time Provider Department 07/11/24 12:30 PM JACY JACQUES [facility] During your visit today, we recorded the following information about you: Temperature Pulse Respiration Blood pressure 97.1 degrees 68/minute 18/minute 116/80 Weight 101.1 kg Jacy Jacques PA 07/11/2024 12:59 PM Signed This note was created using Captio. Subjective Juan Ramon Bryson is a 44 year old male. HPI 44-year-old male presents for sinus congestion that has been going on for 6 + months. Patient states he has had a runny nose for the past several months. He states it is a clear runny nose. He has been seen several times for this in the past several months. - Seen here 03/07 for it and prescribed Flonase and Zyrtec. He states this did not help. He - - SAW ENT- Dr. Obrien 05/09- RX Astelin and recommended considering allergy - Seen here again on 05/14. He was treated with Augmentin. He was referred to allergy. - Saw speeder frame tender on 06/11. Had skin testing which was negative to inhalant allergens and percutaneous testing. Prescribed Nasacort. Patient presents today for persistent symptoms. States he has been using the Nasacort, taken all medications prescribed previously and no improvement in symptoms. No fevers. No cough. No headaches. No other complaint. 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 MEDICATIONS triamcinolone acetonide (NASACORT AQ) 55 mcg nasal inhaler Use 2 Sprays in each nostril once daily. tetrabenazine (XENAZINE) 12.5 mg tablet Take 1 tablet by mouth every morning. cetirizine (ZYRTEC) 10 mg tablet Take 1 tablet by mouth once daily. atorvastatin (LIPITOR) 20 mg tablet Take 20 mg by mouth once daily. doxycycline (VIBRA-TABS) 100 mg tablet Take 1 tablet by mouth two times a day for 5 days. risperiDONE (RISPERDAL) 1 mg tablet (Patient not taking: Reported on 06/11/2024) FAMILY HISTORY Problem Relation Age of Onset other ([facility]) Mother Hypertension Father other ([facility]) Sister other ([facility]) Maternal Grandmother Social History Tobacco Use Smoking status: Never Smokeless tobacco: Never Review of Systems Constitutional: Negative for chills and fever. HENT: Positive for congestion, rhinorrhea and sinus pressure. Negative for sore throat. Respiratory: Negative for cough and shortness of breath. Gastrointestinal: Negative for diarrhea and vomiting. Objective BP 116/80 Pulse 68 Temp 36.2 ?C (97.1 ?F) Resp 18 Wt 101.1 kg (222 lb 14.2 oz) SpO2 97% BMI 31.98 kg/m? Physical Exam Vitals and nursing note reviewed. Constitutional: General: He is not in acute distress. Appearance: Normal appearance. He is not toxic-appearing. HENT: Right Ear: Tympanic membrane and ear canal normal. Left Ear: Tympanic membrane and ear canal normal. Nose: Mucosal edema present. Mouth/Throat: Mouth: Mucous membranes are moist. Eyes: Conjunctiva/sclera: Conjunctivae normal. Cardiovascular: Rate and Rhythm: Normal rate and regular rhythm. Pulmonary: Effort: Pulmonary effort is normal. Breath sounds: Normal breath sounds. Skin: General: Skin is warm and dry. Neurological: Mental Status: He is alert. Assessment and Plan ASSESSMENT/PLAN: 1. Sinus congestion - ICD9: 478.19, ICD10: R09.81 -Patient has seen multiple specialists for this over the past several months. He has also been seen at [facility] twice. -He has been treated with Zyrtec, Flonase, Astelin, Nasacort. He had allergy testing that was all negative. -Persistent congestion. Will try doxycycline due to length of symptoms. -Recommend continuing the Zyrtec and Nasacort. -If symptoms are persistent, needs to follow-up with PCP or ENT again. Diagnosis and treatment plan were discussed and questions were answered to the patient's satisfaction. Pt acknowledged understanding of concepts and follow up plan. Specific signs and symptoms that would indicate the need for higher level of care were discussed in detail warranting prompt ER evaluation. SVETA Lala Allergies As of Date: 07/11/2024 (No Known Allergies) Date Reviewed: 07/11/2024 Reviewed by: Bety Weldon MA - Fully Assessed Reason for Visit: Nasal Congestion [235] Cmt: X6 months, sinus pressure Primary Visit Diagnosis:Sinus congestion [R09.81] Order(s):doxycycline (VIBRA-TABS) 100 mg tabletTake 1 tablet by mouth two times a day for 5 days.Disp: 10 tabletRfl: 0 Prescriptions as of 07/11/2024 - doxycycline (VIBRA-TABS) 100 mg tablet Take 1 tablet by mouth two times a day for 5 days. - triamcinolone acetonide (NASACORT AQ) 55 mcg nasal i (more content not included)... Normal [facility] CNOVon 06-11-2024 [facility] Office Visit (ALLMED ) ----- JUAN RAMON BRYSON ([id number]) 1980 M Date Time Provider Department 06/11/24 10:30 AM PHYLLIS MELENDEZ During your visit today, we recorded the following information about you: Pulse Blood pressure Weight 63/minute 117/83 103 kg Phyllis Melendez MD 06/13/2024 10:33 PM Signed ASSESSMENT/PLAN: - Nonallergic Rhinitis Start Nasacort 2 sprays each nostril once daily - Discussed medication dosage, usage, side effects, and goals of treatment in detail. - Follow-up in 1 yr/PRN - patient will return sooner should new symptoms or problems arise. Phyllis Melendez MD Allergy AND Immunology This is a consultation requested by Mandi Rico APRN, CNP for an allergy and immunology evaluation. My final recommendations will be communicated back to the requesting healthcare provider(s) by way of shared medical record or via [place] mail. Juan Ramon Bryson is a 44 year old male who presents with chronic nasal congestion. Also w/intermittent sneezing. Took zyrtec without relief. Used flonase x 10 days without relief. Used astelin for 1 week without relief. Denies a history of recurrent or chronic rhinosinusitis, nasal polyposis or nasal trauma. Endorses normal sense of taste and smell. COLLATERAL ALLERGY HISTORY: History of Recurrent or chronic sinusitis:No Nasal polyps:No Asthma:No Eczema or atopic dermatitis:No Urticaria:No Food allergy:No Systemic reaction to insect sting:No Allergy to penicillin antibiotics:No REVIEW OF SYSTEMS: All other review of systems negative except for those listed above. 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 azelastine 0.1% nasal spray Use 2 Sprays in each nostril daily at bedtime. cetirizine (ZYRTEC) 10 mg tablet Take 1 tablet by mouth once daily. fluticasone (FLONASE) 50 mcg/actuation nasal spray Use 2 Sprays in each nostril once daily. Rinse mouth after use. risperiDONE (RISPERDAL) 1 mg tablet atorvastatin (LIPITOR) 20 mg tablet 20 mg. ALLERGIES: Allergies As of Date: 06/11/2024 (No Known Allergies) Fully Assessed 05/14/2024 PAST SURGICAL HISTORY No date: UPPER ARM/ELBOW SURGERY UNLISTED; Right FAMILY HISTORY: Allergic rhinitis:no. Asthma: no. Eczema: no. Cystic fibrosis: no. Immunodeficiency: no. SOCIAL HISTORY: Employer And Job Title: None on file Years Of Education Completed: Not specified Marital Status: Single Social History Tobacco Use Smoking status: Never Smokeless tobacco: Never ENVIRONMENTAL HISTORY: Lives in a house Age of home: over 100 years Heating: gas Woodburning fireplace in the home: yes but never used Air conditioning: Window air conditioning Basement: Damp basement Meryl: Hardwood floor Dust mite controls: Dust mite controls are not in place. Pets in the home: 1 dogs Outdoor animals: There are no outdoor animals Tobacco smoke: No exposure in the home. Physical Exam: GENERAL APPEARANCE:Well appearing, alert, in no acute distress, well-hydrated, well nourished. HEENT: NCAT. EYES: conjunctiva and sclera normal. EARS: External ears normal. Canals clear. TM's normal. NOSE/SINUS: Nares normal. Septum midline. Mucosa normal. No drainage or sinus tenderness. THROAT: no erythema NECK:neck supple, no adenopathy HEART:RRR with normal S1 and S2 ,no murmurs, no gallops, no rubs LUNGS: clear to auscultation bilaterally, no wheezes, rales or rhonchi EXTREMITIES:Extremities normal, No deformities, No skin discoloration, and No edema SKIN: Skin color, texture, turgor normal. No rashes or lesions. ALLERGY SKIN TESTS: Completed on 06/11/2024: Negative to inhalant allergens on percutaneous testing Ciara Luis RN 06/11/2024 10:10 AM Signed Patient referred by PCP for runny nose. Patient states he has had runny nose for over a year. Zyrtec doesn't help. He has not tried nasal sprays. He has been off antihistamines for 5 days. Phyllis Melendez MD 06/11/2024 11:19 AM Signed Allergy skin test to inhalant allergens were negative. Use triamcinolone/Nasacort nasal spray 2 sprays each nostril once a day every day on a regular basis. You will not notice improvement right away so please try to use regularly for at least 1 month before you decide whether or not the medication is helpful. Referring Provider: MANDI RICO [[id number]] Allergies As of Date: 06/11/2024 (No Known Allergies) Date Reviewed: 06/11/2024 Reviewed by: Phyllis Melendez MD - Fully Assessed Reason for Visit: New Patient [172] Cmt: Chronic rhinitis Primary Visit Diagnosis:Nonallergic rhinitis [J31.0] Order(s):CONSULT TO ALLERGY/IMMUNOLOGY [9000] Order #: [id number]: 1 INHALANT 32 ALLERGEN SKIN TEST [2131 (more content not included)... Normal [facility] INHALANT 32 ALLERGEN SKIN TE STon 06-11-2024 INHALANT 34 PERCUTAN EOUS & INTRADERMAL TESTING/ Mean Wheal & Flare Diameter (mm) Patient has been identified by name and date of : Yes . Skin test applied by : Ciara Luis RN Interpreted By: Phyllis Melendez M.D. * Clinical significant reactions are regarded as a wheal diameter greater than or equal to 3 mm with a flare diameter greater or equal to 6mm. ALLERGENS Negative Control: 50%Glycerin/50%Cocas P: W = 0 mm F = 0 mm Cat Hair 10,000 BAU/ml P: W = 0 mm F = 0 mm Dog Epithelial 1:20 P: W = 0 mm F = 0 mm Cockroach Mix 1:20 P: W = 0 mm F = 0 mm Mite Df 10,000 AU/ml P: W = 0 mm F = 0 mm Mite Dp 10,000AU/ml P: W = 0 mm F = 0 mm Alternaria Tenuis 1:20 P: W = 0 mm F = 0 mm Aspergillus Fumigatus 1:20 P: W = 0 mm F = 0 mm Cladosporium sphearospermum 1:20 P: W = 0 mm F = 0 mm Bipolaris Sorokiniana 1:20 Heiminthosporium P: W = 0 mm F = 0 mm Paul, White 1:20 P: W = 0 mm F = 0 mm Beech, Tunisian 1:20 P: W = 0mm F = 0mm Birch Mix 1:20 P: W = 0 mm F = 0 mm Maple Mix 1:20 P: W = 0 mm F = 0 mm Bullitt ,Eastern 1:20 P: W = 0 mm F = 0 mm [place], Shagbark 1:20 P: W = 0 mm F = 0 mm Artesia Wells Tree, Red 1:20 P: W = 0mm F = 0 mm Ben Bolt, Black 1:20 P: W = 0 mm F = 0 mm Caldwell, Tunisian/Eastern 1:20 P: W = 0 mm F = 0 mm [place]ford Pollen, Black 1:20 P: W = 0 mm F = 0 mm Herron, Black 1:20 P: W = 0 mm F = 0 mm Bermuda Grass 10,000 BAU/ml P: W = 0 mm F = 0 mm Duglas Grass 1:20 P: W = 0 mm F = 0 mm Perennial Moberly, 100,000 BAU/ml P: W = 0 mm F = 0 mm Clinton 100,000 BAU/ml P : W = 0mm F = 0mm Cocklebur 1:20 P: W = 0mm F = 0mm Keyser, sheep 1:20 P: W = 0mm F = 0mm Plantain, Tamazight 1:20 P: W = 0 mm F = 0 mm Lambs Quarters 1:20 P: W = 0 mm F = 0 mm Ramirez Elder, Burweed 1:20 P: W = 0 mm F = 0 mm Mugwort, Common 1:20 P: W = 0 mm F = 0 mm Pigweed, Rough 1:20 P: W = 0 mm F = 0 mm Ragweed, Mix 1:20 P: W = 0 mm F = 0 mm HISTAMINE, positive control(Histamine base 6mg/ml) P: W = 3 mm F = 20 mm [facility] CNOVon 05-14-2024 CNOV Office Visit ([facility]WSTR ) ----- JUAN RAMON BRYSON ([id number]) 1980 M Date Time Provider Department 05/14/24 1:00 PM MANDI RICO [facility] During your visit today, we recorded the following information about you: Temperature Pulse Respiration Blood pressure 97.4 degrees 71/minute 18/minute 114/76 Weight 103.7 kg Mandi Rico, TAWANA.CODING DIRECTOR 05/14/2024 1:38 PM Signed This note was created using NoteWriter. Subjective Juan Ramon Bryson is a 43 year old male. 43 year old male with PMH hyperlipidemia and chronic rhinitis presents for nasal congestion Acute onset 6 months ago +nasal congestion (States has not been able to clear nose) Denies ear or eye complaints. Denies fever or chills Denies cough Denies SOB or dyspnea He was seen here on 03/07/24-dx seasonal rhinitis. Placed on Flonase and Zyrtec. Referred to ENT, He was evaluated on 05/09/[address] Obrien and his documentation reveals diagnosis chronic rhinitis Marichuy Was told to consider allergy batsheva Presents today with his father for not feeling any different States he is taking the Flonase, Zyrtec, and Astelin The history is provided by the patient. No chinese language professor was used. Nasal Congestion This is a recurrent problem. The current episode started more than 1 month ago. The problem is unchanged. There has been no fever. The fever has been present for 3 to 4 days. His pain is at a severity of 5/10. Associated symptoms include congestion, sinus pressure and sneezing. Pertinent negatives include no chills, coughing, diaphoresis, ear pain, headaches, hoarse voice, neck pain, shortness of breath, sore throat or swollen glands. Past treatments include nothing. The treatment provided no relief. PAST MEDICAL HISTORY 10/08/2018: Elizabeth's disease (HCC) No date: Mixed hyperlipidemia PAST SURGICAL HISTORY No date: UPPER ARM/ELBOW SURGERY UNLISTED; Right ALLERGIES Patient has no known allergies. MEDICATIONS tetrabenazine (XENAZINE) 12.5 mg tablet Take 1 tablet by mouth every morning. azelastine 0.1% nasal spray Use 2 Sprays in each nostril daily at bedtime. cetirizine (ZYRTEC) 10 mg tablet Take 1 tablet by mouth once daily. fluticasone (FLONASE) 50 mcg/actuation nasal spray Use 2 Sprays in each nostril once daily. Rinse mouth after use. risperiDONE (RISPERDAL) 1 mg tablet atorvastatin (LIPITOR) 20 mg tablet 20 mg. FAMILY HISTORY Problem Relation Age of Onset other ([facility]) Mother Hypertension Father other ([facility]) Sister other ([facility]) Maternal Grandmother Social History Tobacco Use Smoking status: Never Smokeless tobacco: Never Review of Systems Constitutional: Negative for chills and diaphoresis. HENT: Positive for congestion, sinus pressure and sneezing. Negative for ear pain, hoarse voice and sore throat. Respiratory: Negative for cough and shortness of breath. Cardiovascular: Negative for chest pain, palpitations and leg swelling. Gastrointestinal: Negative for abdominal pain, diarrhea, nausea and vomiting. Musculoskeletal: Negative for back pain and neck pain. Skin: Negative for color change, pallor, rash and wound. Neurological: Negative for headaches. Hematological: Negative for adenopathy. Does not bruise/bleed easily. Psychiatric/Behavioral: Negative for agitation and behavioral problems. Objective BP 114/76 Pulse 71 Temp 36.3 ?C (97.4 ?F) Resp 18 Wt 103.7 kg (228 lb 9.9 oz) SpO2 97% BMI 32.80 kg/m? Physical Exam Vitals and nursing note reviewed. Constitutional: General: He is not in acute distress. Appearance: Normal appearance. He is not ill-appearing, toxic-appearing or diaphoretic. HENT: Head: Normocephalic and atraumatic. Right Ear: External ear normal. Left Ear: External ear normal. Nose: Nose normal. No congestion or rhinorrhea. Mouth/Throat: Mouth: Mucous membranes are moist. Pharynx: Oropharynx is clear. No oropharyngeal exudate or posterior oropharyngeal erythema. Eyes: General: Right eye: No discharge. Left eye: No discharge. Extraocular Movements: Extraocular movements intact. Conjunctiva/sclera: Conjunctivae normal. Pupils: Pupils are equal, round, and reactive to light. Cardiovascular: Rate and Rhythm: Normal rate and regular rhythm. Pulses: Normal pulses. Heart sounds: Normal heart sounds. No murmur heard. No friction rub. No gallop. Pulmonary: Effort: Pulmonary effort is normal. No respiratory distress. Breath sounds: Normal breath sounds. No stridor. No wheezing, rhonchi or rales. Chest: Chest wall: No tenderness. Abdominal: General: Abdomen is flat. There is no distension. Palpations: Abdomen is soft. There is no mass. Tenderness: There is no abdominal tenderness. There is no guarding or rebound. Hernia: No hernia is present. Musculoskeletal: General: No swelling, tenderness, deformity or sig (more content not included)... Normal [facility] CNOVon 05-09-2024 CNOV Office Visit (OTOLMM ) ----- JUAN RAMON BRYSON ([id number]) 1980 M Date Time Provider Department 05/09/24 11:30 AM WALESKA OBRIEN [facility] During your visit today, we recorded the following information about you: Waleska Obrien MD 05/09/2024 12:12 PM Signed HPI Juan Ramon Bryson is a 43 year old male who presents with congestion. Patient complains of nasal congestion. Patient has tried Flonase did not seem to help patient has no other nasal symptoms. ROS General Weight loss: No Fatigue: No Night sweats:No Cardiac Chest pain:No Fast heart rate:No Swelling in the feet:No Respiratory Short of breath:No Cough:No Wheezing:No Gastrointestinal Nausea:No Vomiting:No Indigestion:No Past medical history, family history, and social history reviewed. PE There were no vitals taken for this visit. General: Patient is awake, alert, NAD. Voice is normal. Skin: normal Eyes: Extraocular motion and Gaze is normal. Ears: Right external auditory canal is normal. TMJ: normal. Right tympanic membranes normal. Left external auditory canal is normal. Left tympanic membrane normal. Nose: Septum is normal. Turbinates are normal. Nasopharynx:normal Oral Cavity/Oropharynx: Lips normal Dentition normal Tongue normal. Tonsils normal. Palate and uvula normal. Pharynx posterior normal Hypopharynx: Base of tongue normal Pyriform sinus normal. Larynx: Vocal cords normal. Epiglottis normal. Post cricoid normal. Salivary glands: Parotid normal. Submandibular and sublingual normal. Thyroid: normal. Lymphatic/Neck: Lymph nodes normal. Neurologic: Facial nerve normal. ASSESSMENT/PLAN: 1. Chronic rhinitis - ICD9: 472.0, ICD10: J31.0 Astelin consider allergy eval Waleska Obrien MD Findings will be communicated to the referring physician via mail or electronic medical record. Referring Provider: ANANYA FERNANDEZ [[id number]] Allergies As of Date: 05/09/2024 (No Known Allergies) Date Reviewed: 05/09/2024 Reviewed by: Whitney Magaña Ma - Fully Assessed Reason for Visit: Allergies [4] Cmt: Started daily 1 year ago.nasal congestion. Primary Visit Diagnosis:Chronic rhinitis [J31.0] Order(s):CONSULT TO ENT [9008] Order #: [id number]: 1 azelastine 0.1% nasal sprayUse 2 Sprays in each nostril daily at bedtime.Disp: 30 mLRfl: 5 Prescriptions as of 05/09/2024 - azelastine 0.1% nasal spray Use 2 Sprays in each nostril daily at bedtime. - cetirizine (ZYRTEC) 10 mg tablet Take 1 tablet by mouth once daily. - fluticasone (FLONASE) 50 mcg/actuation nasal spray Use 2 Sprays in each nostril once daily. Rinse mouth after use. - risperiDONE (RISPERDAL) 1 mg tablet - atorvastatin (LIPITOR) 20 mg tablet 20 mg. Problem List As Of Date 05/09/2024 Noted Resolved Elizabeth's disease (HCC) [G10] 10/09/2023 Obesity, Class III, BMI >= 40 [E66.01] 10/09/2023 Mixed hyperlipidemia [E78.2] 10/09/2023 Prescriptions ordered this encounter Disp Refills Start End AZELASTINE 137 MCG (0.1 %) NASAL SPR* 30 mL 5 05/09/2024 Route: EACH NOSTRIL Sig: Use 2 Sprays in each nostril daily at bedtime. Encounter Status:Closed by WALESKA OBRIEN on 05/09/24 [facility] CNOVon 03-07-2024 CNOV Office Visit (UCWSTR ) ----- JUAN RAMON BRYSON ([id number]) 1980 M Date Time Provider Department 03/07/24 3:30 PM ANANYA FERNANDEZ [facility] During your visit today, we recorded the following information about you: Temperature Pulse Respiration Blood pressure 97.1 degrees 62/minute 16/minute 130/72 Weight 104.5 kg Ananya Fernandez APRN.CODING DIRECTOR 03/07/2024 3:46 PM Signed Subjective HPI HPI Juan Ramon Bryson is a 43 year old male who presents today for CC of sneezing, nasal congestion. This started 1 month ago. Has tried otc medication without relief. Symptoms are worsened by nothing specivid. Risk factors. Requesting to see speeder frame tender today. Hx of elizabeth's Disease. 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 MEDICATIONS risperiDONE (RISPERDAL) 1 mg tablet atorvastatin (LIPITOR) 20 mg tablet 20 mg. cetirizine (ZYRTEC) 10 mg tablet Take 1 tablet by mouth once daily. fluticasone (FLONASE) 50 mcg/actuation nasal spray Use 2 Sprays in each nostril once daily. Rinse mouth after use. FAMILY HISTORY Problem Relation Age of Onset other ([facility]) Mother Hypertension Father other ([facility]) Sister other ([facility]) Maternal Grandmother Social History Tobacco Use Smoking status: Never Smokeless tobacco: Never ROS Objective Blood pressure 130/72, pulse 62, temperature 36.2 ?C (97.1 ?F), resp. rate 16, weight 104.5 kg (230 lb 6.1 oz), SpO2 97%. Physical Exam Constitutional: General: He is not in acute distress. Appearance: He is not toxic-appearing or diaphoretic. HENT: Head: Normocephalic and atraumatic. Nose: Nose normal. Mouth/Throat: Lips: Oasis. Mouth: Mucous membranes are moist. Cardiovascular: Rate and Rhythm: Normal rate and regular rhythm. Heart sounds: Normal heart sounds, S1 normal and S2 normal. Pulmonary: Effort: Pulmonary effort is normal. Breath sounds: Normal breath sounds. Lymphadenopathy: Cervical: No cervical adenopathy. Right cervical: No superficial cervical adenopathy. Left cervical: No superficial cervical adenopathy. Neurological: Mental Status: He is alert and oriented to person, place, and time. Gait: Gait is intact. ASSESSMENT/PLAN: 1. Seasonal allergic rhinitis, unspecified trigger - ICD9: 477.9, ICD10: J30.2 (primary diagnosis) -use medication as prescribed -follow up if symptoms persist, worsen, change - CETIRIZINE 10 MG TABLET - FLUTICASONE PROPIONATE 50 MCG/ACTUATION NASAL SPRAY,SUSPENSION 2. Sneezing - ICD9: 784.99, ICD10: R06.7 - CONSULT TO ENT Ananya Fernandez APRN.CODING DIRECTOR Allergies As of Date: 03/07/2024 (No Known Allergies) Date Reviewed: 03/07/2024 Reviewed by: Cheryl Kinney - Fully Assessed Reason for Visit: Allergies [4] Cmt: X1 mth Primary Visit Diagnosis:Seasonal allergic rhinitis, unspecified trigger [J30.2] Other Visit Diagnosis:Sneezing [R06.7] Order(s):CONSULT TO ENT [9008] Order #: [id number]: 1 FUTURE cetirizine (ZYRTEC) 10 mg tabletTake 1 tablet by mouth once daily.Disp: 30 tabletRfl: 1 fluticasone (FLONASE) 50 mcg/actuation nasal sprayUse 2 Sprays in each nostril once daily. Rinse mouth after use.Disp: 1 EachRfl: 1 Prescriptions as of 03/07/2024 - cetirizine (ZYRTEC) 10 mg tablet Take 1 tablet by mouth once daily. - fluticasone (FLONASE) 50 mcg/actuation nasal spray Use 2 Sprays in each nostril once daily. Rinse mouth after use. - risperiDONE (RISPERDAL) 1 mg tablet - atorvastatin (LIPITOR) 20 mg tablet 20 mg. 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 FLUTICASONE PROPIONATE 50 MCG/ACTUAT* 1 Ea* 1 03/07/2024 Route: EACH NOSTRIL Sig: Use 2 Sprays in each nostril once daily. Rinse mouth after use. Medications Discontinued During This Encounter Prescriptions - fluticasone (FLONASE) 50 mcg/actuation nasal spray (Discontinued) Use 2 Sprays in each nostril once daily. Rinse mouth after use. - fluticasone (FLONASE) 50 mcg/actuation nasal spray (Discontinued) Use 2 Sprays in each nostril once daily. Rinse mouth after use. Encounter Status:Closed by KING ANANYA on 03/07/24 [facility] CNOVon 10-25-2023 CNOV Office Visit (UCWSTR ) ----- ANANYA BRYSON ([id number]) 1980 M Date Time Provider Department 10/25/23 12:45 PM JACY JACQUES [facility] During your visit today, we recorded the following information about you: Temperature Pulse Respiration Blood pressure 97.6 degrees 65/minute 18/minute 122/85 Weight 114.3 kg Jacy Jacques PA 10/25/2023 1:05 PM Signed This note was created using Reclip.Itter. Subjective Ananya Bryson is a 43 year old male. HPI 43-year-old male presents for nasal congestion, runny nose for a month. Patient was seen here back in September for similar symptoms. He was treated with doxycycline at that time. Symptoms improved for short period and then returned. He has constant runny nose for the past month and occasional congestion and sinus pressure. No headaches. No cough. No fevers. No sore throat. No other complaint. 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 MEDICATIONS risperiDONE (RISPERDAL) 1 mg tablet atorvastatin (LIPITOR) 20 mg tablet 20 mg. fluticasone (FLONASE) 50 mcg/actuation nasal spray Use 2 Sprays in each nostril once daily. Rinse mouth after use. amoxicillin-clavulanate potassium (AUGMENTIN) 875-125 mg per tablet Take 1 tablet by mouth two times a day for 7 days. fluticasone (FLONASE) 50 mcg/actuation nasal spray Use 2 Sprays in each nostril once daily. Rinse mouth after use. FAMILY HISTORY Problem Relation Age of Onset other ([facility]) Mother Hypertension Father other ([facility]) Sister other ([facility]) Maternal Grandmother Social History Tobacco Use Smoking status: Never Smokeless tobacco: Never Review of Systems Constitutional: Negative for chills and fever. HENT: Positive for congestion, rhinorrhea and sinus pressure. Negative for sore throat. Respiratory: Negative for cough and shortness of breath. Gastrointestinal: Negative for diarrhea and vomiting. Objective BP 122/85 Pulse 65 Temp 36.4 ?C (97.6 ?F) Resp 18 Wt 114.3 kg (252 lb) SpO2 100% BMI 36.16 kg/m? Physical Exam Vitals and nursing note reviewed. Constitutional: General: He is not in acute distress. Appearance: Normal appearance. He is not toxic-appearing. HENT: Right Ear: Tympanic membrane and ear canal normal. Left Ear: Tympanic membrane and ear canal normal. Nose: Mucosal edema and rhinorrhea present. Mouth/Throat: Mouth: Mucous membranes are moist. Eyes: Conjunctiva/sclera: Conjunctivae normal. Cardiovascular: Rate and Rhythm: Normal rate and regular rhythm. Pulmonary: Effort: Pulmonary effort is normal. Breath sounds: Normal breath sounds. Skin: General: Skin is warm and dry. Neurological: Mental Status: He is alert. Assessment and Plan ASSESSMENT/PLAN: 1. Bacterial sinusitis - ICD9: 473.9, 041.9, ICD10: J32.9, B96.89 -Previously treated with doxycycline. Symptoms return. Will treat with Augmentin for 1 week. -Rx for Flonase. Possibly an allergy component due to return of symptoms. -Recommend if no improvement with Augmentin, he needs to follow-up with PCP. - Supportive care with plenty of fluids, rest, and analgesia prn. Diagnosis and treatment plan were discussed and questions were answered to the patient's satisfaction. Pt acknowledged understanding of concepts and follow up plan. Specific signs and symptoms that would indicate the need for higher level of care were discussed in detail warranting prompt ER evaluation. SVETA Lala Referring Provider: SELF [[id number]] Allergies As of Date: 10/25/2023 (No Known Allergies) Date Reviewed: 10/25/2023 Reviewed by: Yumiko Case LPN - Fully Assessed Reason for Visit: Rhinitis [369] Cmt: X 1 month Primary Visit Diagnosis:Bacterial sinusitis [J32.9, B96.89] Order(s):amoxicillin-clav ulanate potassium (AUGMENTIN) 875-125 mg per tabletTake 1 tablet by mouth two times a day for 7 days.Disp: 14 tabletRfl: 0 fluticasone (FLONASE) 50 mcg/actuation nasal sprayUse 2 Sprays in each nostril once daily. Rinse mouth after use.Disp: 11.1 mLRfl: 0 Prescriptions as of 10/25/2023 - amoxicillin-clavulanate potassium (AUGMENTIN) 875-125 mg per tablet Take 1 tablet by mouth two times a day for 7 days. - fluticasone (FLONASE) 50 mcg/actuation nasal spray Use 2 Sprays in each nostril once daily. Rinse mouth after use. - risperiDONE (RISPERDAL) 1 mg tablet - atorvastatin (LIPITOR) 20 mg tablet 20 mg. - fluticasone (FLONASE) 50 mcg/actuation nasal spray Use 2 Sprays in each nostril once daily. Rinse mouth after use. 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 Normal [facility] - Microbiology an d Antimicrobial susceptibilityon 03-23-2022 SARS-CoV-2 (COVID-19) RNA ARCADIO+probe Ql (Unsp spec) Negative Not Detect [facility] Work Phone: Comment on above: Normal Reference Ran ge: Not DetectedMethod:(RT-PCR) real-time reverse transcriptase PCRLuminex JULIA Instrument*The Food and Drug Administration (FDA) has issued an Emergency Use Authorization (EAU) for the JULIA SARS-CoV-2 Assay for the rapid detection of the virus that causes COVID-19. This test has been validated, but the FDAs independent review of this validation is pending.*Negative results do not preclude infection and should not be used as the sole basis for treatment or patient management. Optimum specimen types and timing for peak viral levels during infections caused by SARS-CoV-2 have not been determined. Collection of multiple specimens from the same patient may be necessary to detect the virus. The possibility of a false negative result should be considered if the patient has clinical presentation or has had recent exposure. Absolute lymphocyte counton 03-22-2022 Lymphocytes Auto (Unsp spec) [#/Vol] 1.35 10*3/uL 0.83-4.51 [facility] Work Phone: Basophil percentageon 2021 Basophils/100 WBC (Bld) 1.2 % 0-1 [facility] Work Phone: [phone] Bilirubin [Mass/Vol] 0.30 mg/dL 0.20-1.00 [facility] Work Phone: Comment on above: For patients on eltr ombopag therapy, use of Dimension Darling TBIL is not recommended. Chloride [Moles/Vol] 104 mmol/L 98-107 [facility] Work Phone: [phone] Eosinophils/100 WBC (Bld) 1.5 % 0-5 [facility] Work Phone: [phone] Glucose [Mass/Vol] 103 mg/dL 74-106 [facility] Work Phone: [phone] Comment on above: Fasting Glucose resu lt from 100 to 125 mg/dL suggests IMPAIRED HOMEOSTASIS per A.D.A. criteria. Neutrophils (Bld) [#/Vol] 4.6 10*3/uL 2.0-7.7 [facility] Work Phone: [phone] Neutrophils/100 WBC (Bld) 67.6 % 47-70 [facility] Work Phone: [phone] Potassium [Moles/Vol] 4.1 mmol/L 3.5-5.1 [facility] Work Phone: [phone] Protein [Mass/Vol] 7.5 g/dL 6.4-8.2 [facility] Work Phone: [phone] Sodium [Moles/Vol] 138 mmol/L 136-145 [facility] Work Phone: WBC (Bld) [#/Vol] 6.7 10*3/uL 4.4-11.0 [facility] Work Phone: Blood erythrocytes count (nu mber/volume)on 03-22-2022 RBC (Bld) [#/Vol] 5.35 10*6/uL 4.6-6.2 [facility] Work Phone: Blood hemoglobin measurement (mass/volume)on 03-22-2022 Hemoglobin (Bld) [Mass/Vol] 16.3 g/dL 13.0-16.5 [facility] Work Phone: Blood lymphocytes/100 leukoc yteson 03-22-2022 Lymphocytes/100 WBC (Bld) 20.1 % 19-41 [facility] Work Phone: Blood monocytes/100 leukocyt eson 03-22-2022 Monocytes/100 WBC (Bld) 9.5 % 0-10 [facility] Work Phone: Blood platelet mean volumeon 03-22-2022 Platelet mean volume (Bld) [Entitic vol] 8.6 fL 6.2-12.0 [facility] Work Phone: Determination of erythrocyte mean corpuscular volume (MCV)on 03-22-2022 MCV (RBC) [Entitic vol] 89.3 fL 80-94 [facility] Work Phone: Hematocrit Auto (Bld) [Volum e fraction]on 03-22-2022 Hematocrit (Bld) [Volume fraction] 47.8 % 40-54 [facility] Work Phone: Laboratory - Chemistry and C hemistry - challengeon 03-22-2022 ALP [Catalytic activity/Vol] 100 U/L 45-117 [facility] Work Phone: ALT [Catalytic activity/Vol] 34 U/L 16-61 [facility] Work Phone: CO2 [Moles/Vol] 28.0 mmol/L 21.0-32.0 [facility] Work Phone: Globulin (S) [Mass/Vol] 3.4 g/dL 2.2-4.2 [facility] Work Phone: Urea nitrogen/Creatinine [Mass ratio] 12.3 mg/mg 10-20 [facility] Work Phone: Laboratory - Drug toxicology on 03-22-2022 Amphetamines Ql (U) Negative <1000 ng/mL [facility] Work Phone: Benzodiazepines Ql (U) Negative < 200 ng/mL [facility] Work Phone: Cannabinoids Screen Ql (U) Negative < 50 ng/mL [facility] Work Phone: Cocaine Ql (U) Negative < 300 ng/mL [facility] Work Phone: Opiates Ql (U) Negative < 300 ng/mL [facility] Work Phone: Laboratory - Hematology and Cell countson 03-22-2022 Erythrocyte distribution width (RBC) [Entitic vol] 40.3 fL 35.1-43.9 [facility] Work Phone: Erythrocyte distribution width (RBC) [Ratio] 12.3 % 11.6-14.6 [facility] Work Phone: Immature granulocytes/100 WBC (Bld) 0.100 % 0.0-0.9 [facility] Work Phone: Comment on above: IG% - Immature Granu locytes (promyelocytes, myelocytes and metamyelocytes) > 1% indicates that a LEFT SHIFT is Present. MCH (RBC) [Entitic mass] 30.5 pg 27.0-32.0 [facility] Work Phone: Nucleated RBC/100 WBC (Bld) [Ratio] 0 % 0-5 [facility] Work Phone: MCHC Auto (RBC) [Mass/Vol]on 03-22-2022 MCHC (RBC) [Mass/Vol] 34.1 g/dL 32-36 [facility] Work Phone: No Panel Informationon 03-22 MDMA (Ecstasy) Screen Negative < 500 ng/mL [facility] Work Phone: Urine Barbiturates Screen Negative < 200 ng/mL [facility] Work Phone: Urine Drug Screen Comment [facility] Work Phone: Comment on above: CONFIRMATORY TESTING FOR ALL POSITIVE URINE DRUG SCREENRESULTS WILL ONLY BE SENT OUT UPON PHYSICIAN ORDER. VISTA Urine Drug Screen methods provide only preliminaryanalytical test results. A more specific alternate chemicalmethod must be used in order to obtain a confirmedanalytical result. Gas chromatography/mass spectrometery(GC/MS) is the preferred confirmatory method. Clinicalconsideration and professional judgement should be appliedto any drug of abuse test result, particularly whenpreliminary positive results are used. URINE TCA TESTING MUST BE ORDERED SEPARATELY. USE TESTMNEMONIC: [facility] Urine Methadone Screen Negative < 300 ng/mL [facility] Work Phone: Estimated Creatinine Clearance Calc 102.43 ml/min [facility] Work Phone: Estimated GFR (MDRD) Amer 109 mL/min >60 [facility] Work Phone: Comment on above: GFR Calc Estimated GFR (MDRD) Non-Af Amer 90 mL/min >60 [facility] Work Phone: Comment on above: Non- GFR Calc Ethyl Alcohol Level < 3.0 mg/dL [facility] Work Phone: Comment on above: The serum:whole bloo d ethanol ratio is approximately 1.14and varies slightly with hematocrit. Medical Alcohol reference interval and critical value innon-tolerant individuals; 50 - 100 Impairment 100 Intoxication 100 - 250 Severe Poisoning 250 - 400 Deep/possible fatal coma Platelets bldon 03-22-2022 Platelets (Bld) [#/Vol] 322 10*3/uL 150-450 [facility] Work Phone: Serum or plasma albumin kota urement (mass/volume)on 03-22-2022 Albumin [Mass/Vol] 4.1 g/dL 3.2-5.0 [facility] Work Phone: Serum or plasma albumin/glob ulin mass ratioon 03-22-2022 Albumin/Globulin [Mass ratio] 1.2 {ratio} 0.9-2.4 [facility] Work Phone: Serum or plasma calcium kota urement (mass/volume)on 03-22-2022 Calcium [Mass/Vol] 9.4 mg/dL 8.5-10.1 [facility] Work Phone: Serum or plasma creatinine m easurement (mass/volume)on 03-22-2022 Creatinine [Mass/Vol] 0.97 mg/dL 0.70-1.30 [facility] Work Phone: Comment on above: The validity of the calculated GFR & GFRAA in patients over 70 years has not been determined. Clinical correlation is essential. Serum or plasma urea nitroge n measurement (mass/volume)on 03-22-2022 Urea nitrogen [Mass/Vol] 12 mg/dL 7-18 [facility] Work Phone: Thin prep Papanicolaou smear with manual screeningon 03-22-2022 Thin prep Papanicolaou smear with manual screening 15 U/L 15-37 [facility] Work Phone: Thin prep Papanicolaou smear with manual screening 6 5-15 [facility] Work Phone: Urine phencyclidine (PCP) de tectionon 03-22-2022 Phencyclidine Ql (U) Negative < 25 ng/mL [facility] Work Phone: Otheron 06-12-2020 No acute osseous abnormality of the right shoulder and right elbow. Posterior elbow soft tissue swelling with minimal joint effusion. Workstation ID: [id number] [facility] EXAMINATION: THREE X RAY VIEWS OF THE RIGHT SHOULDER; THREE XRAY VIEWS OF THE RIGHT ELBOW 06/11/2020 11:52 pm COMPARISON: None. HISTORY: Acute pain status post fall. FINDINGS: No acute fracture or dislocation of the shoulder. No acute fracture or dislocation of the elbow. Minimal elbow joint effusion with posterior soft tissue swelling. [facility] Interface, Rad In Fu ji Speechq - 06/12/2020 12:26 AM EDT EXAMINATION: THREE XRAY VIEWS OF THE RIGHT SHOULDER; THREE XRAY VIEWS OF THE RIGHT ELBOW 06/11/2020 11:52 pm COMPARISON: None. HISTORY: Acute pain status post fall. FINDINGS: No acute fracture or dislocation of the shoulder. No acute fracture or dislocation of the elbow. Minimal elbow joint effusion with posterior soft tissue swelling. IMPRESSION: No acute osseous abnormality of the right shoulder and right elbow. Posterior elbow soft tissue swelling with minimal joint effusion. Workstation ID: [id number] [facility] SPLINT APPLICATIONon 020 Leonie Peacock CNP 06/12/2020 1:20 AM Splint Application Date/Time: 06/12/2020 1:20 AM Performed by: Leonie Peacock CNP Authorized by: Cooper Cummings MD Verbal consent: obtained Location details: right arm Supplies used: elastic bandage Post-procedure: The splinted body part was neurovascularly intact following the procedure. Comments: Sling also applied to right arm. [facility] XR ELBOW RIGHT 3+ VIEWS (STA NDARD)on 06-12-2020 XR ELBOW RIGHT 3+ VIEWS (STANDARD) EXAMINATION: THREE XRAY VIEWS OF THE RIGHT SHOULDER; THREE XRAY VIEWS OF THE RIGHT ELBOW 06/11/2020 11:52 pm COMPARISON: None. HISTORY: Acute pain status post fall. FINDINGS: No acute fracture or dislocation of the shoulder. No acute fracture or dislocation of the elbow. Minimal elbow joint effusion with posterior soft tissue swelling. IMPRESSION: No acute osseous abnormality of the right shoulder and right elbow. Posterior elbow soft tissue swelling with minimal joint effusion. Workstation ID: [id number] Dictated by: CITLALI MILLAN on [facility] Jun 12, 2020 12:23:33 AM EDT Transcribed by: CITLALI MILLAN on [facility] Jun 12, 2020 12:23:33 AM EDT Finalized by: CITLALI MILLAN on [facility] Jun 12, 2020 12:23:33 AM EDT [facility] Comment on above: Order Comment: Injur y/Trauma or Illness?:Injury/Trauma How long have you had these symptoms (acute/chronic)?:Acute Reason for exam?:R elbow pain History of cancer?:unk Surgeries, chemotherapy, or radiation?:unk Type of Exam?:Initial Mechanism of injury?:fall from skateboard XR SHOULDER RIGHT 2+ VIEWS ( STANDARD)on 06-12-2020 XR SHOULDER RIGHT 2+ VIEWS (STANDARD) EXAMINATION: THREE XRAY VIEWS OF THE RIGHT SHOULDER; THREE XRAY VIEWS OF THE RIGHT ELBOW 06/11/2020 11:52 pm COMPARISON: None. HISTORY: Acute pain status post fall. FINDINGS: No acute fracture or dislocation of the shoulder. No acute fracture or dislocation of the elbow. Minimal elbow joint effusion with posterior soft tissue swelling. IMPRESSION: No acute osseous abnormality of the right shoulder and right elbow. Posterior elbow soft tissue swelling with minimal joint effusion. Workstation ID: [id number] Dictated by: CITLALI MILLAN on [facility] Jun 12, 2020 12:23:33 AM EDT Transcribed by: CITLALI MILLAN on [facility] Jun 12, 2020 12:23:33 AM EDT Finalized by: CITLALI MILLAN on [facility] Jun 12, 2020 12:23:33 AM EDT [facility] Comment on above: Order Comment: Injur y/Trauma or Illness?:Injury/Trauma How long have you had these symptoms (acute/chronic)?:Acute Reason for exam?:R shoulder pain History of cancer?:unk Surgeries, chemotherapy, or radiation?:unk Type of Exam?:Initial Mechanism of injury?:fall from skateboard Vital Signs Date Time Vital Sign Value Performing Clinician Facility 01-27-2025 13:20-0400 Body height 177.8 cm Jessa Mcgrath APRN.CNP Work Phone: [facility] 01-27-2025 13:20-0400 Body mass index (BMI) [Ratio] 30.07 kg/m2 Jessa Mcgrath APRN.CNP Work Phone: [facility] 01-27-2025 13:20-0400 Body weight 95.07 kg Jessa Mcgrath APRN.CNP Work Phone: [facility] 01-27-2025 13:20-0400 Diastolic blood pressure 68 mm[Hg] Jessa Ray VIDEO GAME TECHNICIAN.CODING DIRECTOR Work Phone: [facility] 01-27-2025 13:20-0400 Heart rate 56 /min Jessa Ray VIDEO GAME TECHNICIAN.CODING DIRECTOR Work Phone: [facility] 01-27-2025 13:20-0400 Respiratory rate 18 /min Jessa Ray VIDEO GAME TECHNICIAN.CODING DIRECTOR Work Phone: [facility] 01-27-2025 13:20-0400 SaO2% (BldA) [Mass fraction] 97 % Jessa Ray VIDEO GAME TECHNICIAN.CODING DIRECTOR Work Phone: [facility] 01-27-2025 13:20-0400 Systolic blood pressure 124 mm[Hg] Jessa Ray VIDEO GAME TECHNICIAN.CODING DIRECTOR Work Phone: [facility] 09-24-2024 13:20-0500 Body mass index (BMI) [Ratio] 34.42 kg/m2 Leonides Lowe MD Work Phone: [facility] 09-24-2024 13:20-0500 Body temperature 97.11 [degF] Leonides Lowe MD Work Phone: [facility] 09-24-2024 13:20-0500 Body weight 108.8 kg Leonides Lowe MD Work Phone: [facility] 09-24-2024 13:20-0500 Diastolic blood pressure 80 mm[Hg] Leonides Lowe MD Work Phone: [facility] 09-24-2024 13:20-0500 Heart rate 80 /min Leonides Lowe MD Work Phone: [facility] 09-24-2024 13:20-0500 Respiratory rate 16 /min Leonides Lowe MD Work Phone: [facility] 09-24-2024 13:20-0500 SaO2% (BldA) [Mass fraction] 96 % Leonides Lowe MD Work Phone: [facility] 09-24-2024 13:20-0500 Systolic blood pressure 124 mm[Hg] Leonides Lowe MD Work Phone: [facility] 09-11-2024 14:39-0500 Body mass index (BMI) [Ratio] 34.16 kg/m2 Mandi Rico VIDEO GAME TECHNICIAN.CODING DIRECTOR Work Phone: [facility] 09-11-2024 14:39-0500 Body temperature 97.5 [degF] Mandi Rico VIDEO GAME TECHNICIAN.CODING DIRECTOR Work Phone: [facility] 09-11-2024 14:39-0500 Body weight 108 kg Mandi Rico VIDEO GAME TECHNICIAN.CODING DIRECTOR Work Phone: [facility] 09-11-2024 14:39-0500 Diastolic blood pressure 83 mm[Hg] Mandi Rico VIDEO GAME TECHNICIAN.CODING DIRECTOR Work Phone: [facility] 09-11-2024 14:39-0500 Heart rate 74 /min Mandi Rico VIDEO GAME TECHNICIAN.CODING DIRECTOR Work Phone: [facility] 09-11-2024 14:39-0500 Respiratory rate 22 /min Mandi Rico VIDEO GAME TECHNICIAN.CODING DIRECTOR Work Phone: [facility] 09-11-2024 14:39-0500 SaO2% (BldA) [Mass fraction] 97 % Mandi Rico VIDEO GAME TECHNICIAN.CODING DIRECTOR Work Phone: [facility] 09-11-2024 14:39-0500 Systolic blood pressure 119 mm[Hg] Mandi Rico VIDEO GAME TECHNICIAN.CODING DIRECTOR Work Phone: [facility] 07-29-2024 13:40-0400 Body height 177.8 cm Jessa Ray VIDEO GAME TECHNICIAN.CODING DIRECTOR Work Phone: [facility] 07-29-2024 13:40-0400 Body mass index (BMI) [Ratio] 32.71 kg/m2 Jessa Ray VIDEO GAME TECHNICIAN.CODING DIRECTOR Work Phone: [facility] 07-29-2024 13:40-0400 Body weight 103.42 kg Jessa Ray VIDEO GAME TECHNICIAN.CODING DIRECTOR Work Phone: [facility] 07-29-2024 13:40-0400 Diastolic blood pressure 70 mm[Hg] Jessa Ray VIDEO GAME TECHNICIAN.CODING DIRECTOR Work Phone: [facility] 07-29-2024 13:40-0400 Heart rate 76 /min Jessa Ray VIDEO GAME TECHNICIAN.CODING DIRECTOR Work Phone: [facility] 07-29-2024 13:40-0400 Respiratory rate 16 /min Jessa Ray VIDEO GAME TECHNICIAN.CODING DIRECTOR Work Phone: [facility] 07-29-2024 13:40-0400 SaO2% (BldA) [Mass fraction] 95 % Jessa Ray VIDEO GAME TECHNICIAN.CODING DIRECTOR Work Phone: [facility] 07-29-2024 13:40-0400 Systolic blood pressure 102 mm[Hg] Jessa Ray VIDEO GAME TECHNICIAN.CODING DIRECTOR Work Phone: [facility] 07-21-2024 13:33-0400 Body mass index (BMI) [Ratio] 32.68 kg/m2 Himanshu Pendlebury VIDEO GAME TECHNICIAN.CODING DIRECTOR Work Phone: [facility] 07-21-2024 13:33-0400 Body temperature 97.59 [degF] Himanshu Pendlebury VIDEO GAME TECHNICIAN.CODING DIRECTOR Work Phone: [facility] 07-21-2024 13:33-0400 Body weight 103.3 kg [facility] VIDEO GAME TECHNICIAN.CODING DIRECTOR Work Phone: [facility] 07-21-2024 13:33-0400 Diastolic blood pressure 78 mm[Hg] Himanshu Pendlebury VIDEO GAME TECHNICIAN.CODING DIRECTOR Work Phone: [facility] 07-21-2024 13:33-0400 Heart rate 76 /min Himanshu Pendlebury VIDEO GAME TECHNICIAN.CODING DIRECTOR Work Phone: [facility] 07-21-2024 13:33-0400 Respiratory rate 16 /min Himanshu Pendlebury VIDEO GAME TECHNICIAN.CODING DIRECTOR Work Phone: [facility] 07-21-2024 13:33-0400 SaO2% (BldA) [Mass fraction] 96 % Himanshu Marge VIDEO GAME TECHNICIAN.CODING DIRECTOR Work Phone: [facility] 07-21-2024 13:33-0400 Systolic blood pressure 110 mm[Hg] Himanshu Iyerhaseeb VIDEO GAME TECHNICIAN.CODING DIRECTOR Work Phone: [facility] 07-11-2024 12:42-0400 Body mass index (BMI) [Ratio] 31.98 kg/m2 Krislyn Aberegg PA Work Phone: [facility] 07-11-2024 12:42-0400 Body temperature 97.11 [degF] Krislyn Aberegg PA Work Phone: [facility] 07-11-2024 12:42-0400 Body weight 101.1 kg Krislyn Aberegg PA Work Phone: [facility] 07-11-2024 12:42-0400 Diastolic blood pressure 80 mm[Hg] Krislyn Aberegg PA Work Phone: [facility] 07-11-2024 12:42-0400 Heart rate 68 /min Krislyn Aberegg PA Work Phone: [facility] 07-11-2024 12:42-0400 Respiratory rate 18 /min Krislyn Aberegg PA Work Phone: [facility] 07-11-2024 12:42-0400 SaO2% (BldA) [Mass fraction] 97 % Krislyn Aberegg PA Work Phone: [facility] 07-11-2024 12:42-0400 Systolic blood pressure 116 mm[Hg] Krislyn Aberegg PA Work Phone: [facility] 06-11-2024 10:08-0400 Body mass index (BMI) [Ratio] 32.58 kg/m2 Phyllis Melendez MD Work Phone: [facility] 06-11-2024 10:08-0400 Body weight 103 kg Phyllis Melendez MD Work Phone: [facility] 06-11-2024 10:08-0400 Diastolic blood pressure 83 mm[Hg] Phyllis Melendez MD Work Phone: [facility] 06-11-2024 10:08-0400 Heart rate 63 /min Phyllis Melendez MD Work Phone: [facility] 06-11-2024 10:08-0400 SaO2% (BldA) [Mass fraction] 98 % Phyllis Melendez MD Work Phone: [facility] 06-11-2024 10:08-0400 Systolic blood pressure 117 mm[Hg] Phyllis Melendez MD Work Phone: [facility] 05-14-2024 12:59-0400 Body mass index (BMI) [Ratio] 32.8 kg/m2 Mandi Rico VIDEO GAME TECHNICIAN.CODING DIRECTOR Work Phone: [facility] 05-14-2024 12:59-0400 Body temperature 97.39 [degF] Mandi Rico VIDEO GAME TECHNICIAN.CODING DIRECTOR Work Phone: [facility] 05-14-2024 12:59-0400 Body weight 103.7 kg Mandi Rico VIDEO GAME TECHNICIAN.CODING DIRECTOR Work Phone: [facility] 05-14-2024 12:59-0400 Diastolic blood pressure 76 mm[Hg] Mandi Rico VIDEO GAME TECHNICIAN.CODING DIRECTOR Work Phone: [facility] 05-14-2024 12:59-0400 Heart rate 71 /min Mandi Rico VIDEO GAME TECHNICIAN.CODING DIRECTOR Work Phone: [facility] 05-14-2024 12:59-0400 Respiratory rate 18 /min Mandi Rico VIDEO GAME TECHNICIAN.CODING DIRECTOR Work Phone: [facility] 05-14-2024 12:59-0400 SaO2% (BldA) [Mass fraction] 97 % Mandi Rico VIDEO GAME TECHNICIAN.CODING DIRECTOR Work Phone: [facility] 05-14-2024 12:59-0400 Systolic blood pressure 114 mm[Hg] Mandi Rico VIDEO GAME TECHNICIAN.CODING DIRECTOR Work Phone: [facility] 03-07-2024 15:21-0400 Body mass index (BMI) [Ratio] 33.06 kg/m2 Ananya Fernandez VIDEO GAME TECHNICIAN.CODING DIRECTOR Work Phone: [facility] 03-07-2024 15:21-0400 Body temperature 97.11 [degF] Ananya Fernandez VIDEO GAME TECHNICIAN.CODING DIRECTOR Work Phone: [facility] 03-07-2024 15:21-0400 Body weight 104.5 kg Ananya Fernandez VIDEO GAME TECHNICIAN.CODING DIRECTOR Work Phone: [facility] 03-07-2024 15:21-0400 Diastolic blood pressure 72 mm[Hg] Ananya Fernandez VIDEO GAME TECHNICIAN.CODING DIRECTOR Work Phone: [facility] 03-07-2024 15:21-0400 Heart rate 62 /min Ananya Fernandez VIDEO GAME TECHNICIAN.CODING DIRECTOR Work Phone: [facility] 03-07-2024 15:21-0400 Respiratory rate 16 /min Ananya Fernandez VIDEO GAME TECHNICIAN.CODING DIRECTOR Work Phone: [facility] 03-07-2024 15:21-0400 SaO2% (BldA) [Mass fraction] 97 % Ananya Fernandez VIDEO GAME TECHNICIAN.CODING DIRECTOR Work Phone: [facility] 03-07-2024 15:21-0400 Systolic blood pressure 130 mm[Hg] Ananya Fernandez VIDEO GAME TECHNICIAN.CODING DIRECTOR Work Phone: [facility] 09-15-2023 13:34-0500 Body temperature 98.01 [degF] Himanshu Bird VIDEO GAME TECHNICIAN.CODING DIRECTOR Work Phone: [facility] 09-15-2023 13:34-0500 Body weight 113.4 kg Himanshu Bird VIDEO GAME TECHNICIAN.CODING DIRECTOR Work Phone: [facility] 09-15-2023 13:34-0500 Diastolic blood pressure 82 mm[Hg] Himanshu Bird VIDEO GAME TECHNICIAN.CODING DIRECTOR Work Phone: [facility] 09-15-2023 13:34-0500 Heart rate 85 /min Himanshu Pendlebury VIDEO GAME TECHNICIAN.CODING DIRECTOR Work Phone: [facility] 09-15-2023 13:34-0500 Respiratory rate 16 /min Himanshu Pendlebury VIDEO GAME TECHNICIAN.CODING DIRECTOR Work Phone: [facility] 09-15-2023 13:34-0500 SaO2% (BldA) [Mass fraction] 99 % Himanshu Pendlebury VIDEO GAME TECHNICIAN.CODING DIRECTOR Work Phone: [facility] 09-15-2023 13:34-0500 Systolic blood pressure 120 mm[Hg] Himanshu Pendlebury VIDEO GAME TECHNICIAN.CODING DIRECTOR Work Phone: [facility] 09-05-2023 11:00-0500 Body temperature 98.01 [degF] Maddison Praisler-Wood VIDEO GAME TECHNICIAN.CODING DIRECTOR Work Phone: [facility] 09-05-2023 11:00-0500 Body weight 112.49 kg Maddison Praisler-Wood VIDEO GAME TECHNICIAN.CODING DIRECTOR Work Phone: [facility] 09-05-2023 11:00-0500 Diastolic blood pressure 78 mm[Hg] Maddison Praisler-Wood VIDEO GAME TECHNICIAN.CODING DIRECTOR Work Phone: [facility] 09-05-2023 11:00-0500 Heart rate 72 /min Maddison Praisler-Wood VIDEO GAME TECHNICIAN.CODING DIRECTOR Work Phone: [facility] 09-05-2023 11:00-0500 Respiratory rate 16 /min Maddison Praisler-Wood VIDEO GAME TECHNICIAN.CODING DIRECTOR Work Phone: [facility] 09-05-2023 11:00-0500 SaO2% (BldA) [Mass fraction] 98 % Maddison Praisler-Wood VIDEO GAME TECHNICIAN.CODING DIRECTOR Work Phone: [facility] 09-05-2023 11:00-0500 Systolic blood pressure 128 mm[Hg] Maddison Praisler-Wood VIDEO GAME TECHNICIAN.CODING DIRECTOR Work Phone: [facility] 03-23-2022 13:16-0400 Diastolic blood pressure 96 mm[Hg] [facility] Work Phone: 03-23-2022 13:16-0400 Heart rate 88 /min [facility] Work Phone: 03-23-2022 13:16-0400 Respiratory rate 18 /min [facility] Work Phone: 03-23-2022 13:16-0400 SaO2% (BldA) [Mass fraction] 97 % [facility] Work Phone: 03-23-2022 13:16-0400 Systolic blood pressure 155 mm[Hg] [facility] Work Phone: 03-22-2022 09:23-0400 Body height 177.8 cm [facility] Work Phone: 03-22-2022 09:23-0400 Body mass index (BMI) [Ratio] 27.9 kg/m2 [facility] Work Phone: 03-22-2022 09:23-0400 Body temperature 98.4 [degF] [facility] Work Phone: 03-22-2022 09:23-0400 Body weight 88.4 kg [facility] Work Phone: 11-25-2020 19:57-0500 BP Diastolic 80 mm[Hg] Monica [facility] 11-25-2020 19:57-0500 BP Systolic 147 mm[Hg] Monica [facility] 11-25-2020 19:55-0500 BMI (Body Mass Index) 30.13 kg/m2 Monica [facility] 11-25-2020 19:55-0500 Body Temperature 97.7 [degF] Monica [facility] 11-25-2020 19:55-0500 Body weight 95.25 kg Monica [facility] 11-25-2020 19:55-0500 Pulse (Heart Rate) 79 /min Monica [facility] 11-25-2020 19:55-0500 Pulse Oximetry 99 % Monica [facility] 11-25-2020 19:55-0500 Respiratory Rate 15 /min Monica [facility] 06-11-2020 23:47-0400 BP Diastolic 83 mm[Hg] Cooper Cummings [facility] 06-11-2020 23:47-0400 BP Systolic 135 mm[Hg] Cooper Cummings [facility] 06-11-2020 23:47-0400 Pulse (Heart Rate) 80 /min Copoermerlyn Cummings [facility] 06-11-2020 23:47-0400 Pulse Oximetry 98 % Coopermerlyn Cummings [facility] 06-11-2020 23:47-0400 Respiratory Rate 18 /min Coopermerlyn Cummings [facility] 06-11-2020 23:40-0400 BMI (Body Mass Index) 27.12 kg/m2 Cooper Scbharathdony [facility] 06-11-2020 23:40-0400 Body Temperature 98.71 [degF] Coopermerlyn Montoyadony [facility] 06-11-2020 23:40-0400 [facility] 85.73 [facility]-11-[facility] 23:40-0400 Height 177.8 cm [facility] 08-26-2017 18:50-0500 Body Temperature 98.6 [degF] Brandy Maki [facility] Work Phone: 08-26-2017 18:50-0500 BP Diastolic 82 mm[Hg] Brandy Maki [facility] Work Phone: 08-26-2017 18:50-0500 BP Systolic 124 mm[Hg] Brandy Maki [facility] Work Phone: 08-26-2017 18:50-0500 Pulse (Heart Rate) 79 /min Brandy Maki [facility] Work Phone: 08-26-2017 18:50-0500 Pulse Oximetry 98 % Brandy Maki [facility] Work Phone: 08-26-2017 18:50-0500 Respiratory Rate 16 /min Brandy Maki [facility] Work Phone: 08-26-2017 18:50-0500 Weight 94.35 kg Brandy Maki [facility] Work Phone: Encounters Encounter Date Encounter Type Care Provider Facility Start: 01-27-2025 End: 01-27-2025 Patient encounter procedure Jessa Mcgrath VIDEO GAME TECHNICIAN.CODING DIRECTOR Work Phone: [facility] Comment on above: Wellness examination (Primary Dx); Mixed hyperlipidemia; Elizabeth's disease (HCC) Start: 01-27-2025 End: 01-27-2025 Patient encounter status Jessa Mcgrath VIDEO GAME TECHNICIAN.CODING DIRECTOR Work Phone: [facility] Work Phone: Start: 01-27-2025 End: 01-27-2025 ambulatory JESSA MCGRATH Facility:[facility] Start: 01-27-2025 Encounter for genera l adult medical examination without abnormal findings JESSAISRAEL MCGRATH [facility] Start: 10-08-2024 End: 10-08-2024 Emergency department patient visit [facility] Facility:[facility] Start: 09-24-2024 End: 09-24-2024 ambulatory [facility] Facility:[facility] Start: 09-24-2024 End: 09-24-2024 Office outpatient visit 15 minutes Leonides Lowe MD Work Phone: [facility] Comment on above: Chronic rhinitis (Pr imary Dx) Start: 09-11-2024 End: 09-11-2024 ambulatory JESSA MCGRATH Facility:[facility] Start: 09-11-2024 End: 09-11-2024 Patient encounter procedure Mandi Rico VIDEO GAME TECHNICIAN.CODING DIRECTOR Work Phone: [facility] Comment on above: Maxillary sinusitis, unspecified chronicity (Primary Dx) Start: 07-29-2024 End: 07-29-2024 Patient encounter procedure Jessa Mcgrath VIDEO GAME TECHNICIAN.CODING DIRECTOR Work Phone: [facility] Comment on above: Mixed hyperlipidemia (Primary Dx); Philo's disease (HCC); Nasal congestion Start: 07-29-2024 End: 07-29-2024 ambulatory JESSA MCGRATH Facility:[facility] Start: 07-21-2024 End: 07-21-2024 ambulatory JESSA MCGRATH Facility:[facility] Start: 07-21-2024 End: 07-21-2024 Office outpatient visit 15 minutes Himanshu Bird VIDEO GAME TECHNICIAN.CODING DIRECTOR Work Phone: [facility] Comment on above: Chronic rhinitis (Pr imary Dx) Start: 07-11-2024 End: 07-11-2024 [facility] Facility:[facility] Start: 07-11-2024 End: 07-11-2024 Patient encounter procedure Jacy BANGURA Work Phone: [facility] Comment on above: Sinus congestion (Pr imary Dx) Start: 06-11-2024 End: 06-11-2024 [facility] Facility:[facility] Start: 06-11-2024 End: 06-11-2024 Patient encounter procedure Phyllis Melendez MD Work Phone: Allergy Comment on above: Nonallergic rhinitis (Primary Dx) Start: 05-14-2024 End: 05-14-2024 [facility] Facility:[facility] Start: 05-14-2024 End: 05-14-2024 Patient encounter procedure Mandi Rico VIDEO GAME TECHNICIAN.CODING DIRECTOR Work Phone: [facility] Comment on above: Chronic rhinitis (Pr imary Dx) Start: 05-09-2024 End: 05-09-2024 [facility] Facility:[facility] Start: 05-09-2024 End: 05-09-2024 Patient encounter procedure Waleska Obrien MD Work Phone: Otolaryngology Comment on above: Chronic rhinitis (Pr imary Dx) Start: 03-07-2024 End: 03-07-2024 [facility] Facility:[facility] Start: 03-07-2024 End: 03-07-2024 Patient encounter procedure Ananya Fernandez APRN.CODING DIRECTOR Work Phone: [facility] Comment on above: Seasonal allergic rh initis, unspecified trigger (Primary Dx); Sneezing Start: 10-25-2023 End: 10-25-2023 [facility] Facility:[facility] Start: 09-15-2023 End: 09-15-2023 Office outpatient visit 25 minutes Himanshu Bird VIDEO GAME TECHNICIAN.CODING DIRECTOR Work Phone: [facility] Comment on above: Bacterial sinusitis (Primary Dx) Start: 09-05-2023 End: 09-05-2023 Patient encounter procedure Maddison GermainKhoa VIDEO GAME TECHNICIAN.CODING DIRECTOR Work Phone: [facility] Comment on above: Bacterial sinusitis (Primary Dx) Start: 03-22-2022 End: 03-23-2022 Emergency department patient visit [facility] Start: 06-15-2021 ambulatory DORENE Teresa OQUENDO [facility] y:[facility] Start: 04-24-2021 End: 04-24-2021 Emergency department patient visit SUDHAKAR KIM [facility] Start: 11-30-2020 End: 11-30-2020 Patient encounter procedure [facility] Start: 11-25-2020 End: 11-25-2020 Patient encounter procedure MONICA LAM [facility] Start: 11-25-2020 End: 11-25-2020 Office outpatient new 30 minutes Monica Lam Work Phone: [facility] Comment on above: Tinea pedis of both feet (Primary Dx) Start: 06-12-2020 End: 06-12-2020 Emergency department patient visit [facility] Start: 06-11-2020 End: 06-12-2020 Emergency department patient visit Cooper Cummings Work Phone: [facility] Emergency Department Comment on above: Fall, initial encoun ter (Primary Dx); Pain of right upper extremity; Multiple abrasions; Right elbow pain; Acute pain of right shoulder; Effusion of right elbow Start: 03-09-2020 End: 03-09-2020 Patient encounter procedure AC KANGTERSON [facility] Start: 08-26-2017 Office outpatient ne w 30 minutes Brandy Maki Work Phone: [facility] Procedures Date Procedure Procedure Detail Performing Clinician Start: 10-09-2024 Lipid 1996 panel - S yasemin or Plasma Jessa Mcgrath VIDEO GAME TECHNICIAN.CODING DIRECTOR Work Phone: Start: 06-24-2024 Lipid 1996 panel - S yasemin or Plasma Jacy BANGURA Work Phone: Start: 06-11-2024 INHALANT 32 ALLERGEN SKIN TEST Phyllis Melendez MD Work Phone: Start: 06-08-2024 Colonoscopy Jessa kellogg VIDEO GAME TECHNICIAN.CODING DIRECTOR Work Phone: Start: 11-30-2020 Lipid 1996 panel - S yasemin or Plasma Maddison Zaragoza VIDEO GAME TECHNICIAN.CODING DIRECTOR Work Phone: Start: 06-12-2020 Application of splint L mala Peacock Work Phone: Start: 06-12-2020 Radex elbow complete minimum 3 views Triage Protocol Emergency Start: 06-12-2020 Radex shoulder compl ete minimum 2 views Triage Protocol Emergency Viral antigen assay Plan of Treatment Date Care Activity Detail Author Start: 04-13-2032 Urine microalbumin profile DTaP,Tdap,Td Vaccine (4 - Td or Tdap) [facility] Start: 10-09-2029 Lipid panel Lipid Screening [facility] Start: 06-24-2029 Lipid panel Lipid Screening [facility] Start: 10-09-2027 Diabetes Screening Diabetes Screenin [facility] Start: 07-11-2027 Diabetes Screening Diabetes Screenin [facility] Start: 01-27-2026 Hepatitis C screening Hepatitis C [facility] Comment on above: Postponed from 05/27 (Declined at this time) Start: 01-27-2026 HIV screening HIV Screening [facility] Comment on above: Postponed from 05/27 (Declined at this time) Start: 11-30-2025 Lipid 1996 panel - Serum or Plasma Lipid Screening [facility] Start: 11-30-2025 Lipid panel Lipid Screening [facility] Start: 10-20-2025 Tetanus vaccination Tetanus: Every 1 0yrs [facility] Start: 06-08-2025 Screening for malignant neoplasm of colon [facility] Start: 01-27-2025 End: 01-27-2025 Patient encounter procedure 01/27/2025 1:40 PM EDT Office Visit [facility] [address] [place] [address] Jessa Mcgrath, VIDEO GAME TECHNICIAN.CODING DIRECTOR [address] [place] [address] NORE[facility] Comment on above: NOREEN Start: 07-29-2024 End: 07-29-2024 Patient encounter procedure 07/29/2024 1:40 PM EDT Office Visit [facility] [address] [place], [place] [phone] Jessa Mcgrath, VIDEO GAME TECHNICIAN.CODING DIRECTOR [address] [place], [place] [id number] pt needs checkup appt [facility] Comment on above: pt needs checkup jessy t Start: 06-11-2024 End: 06-11-2024 Patient encounter procedure 06/11/2024 10:30 AM EDT Office Visit Allergy [address] [address] Phyllis Melendez MD [address] [place], [place] [phone] Chronic rhinitis [J31.0] Allergy Comment on above: Chronic rhinitis [J3 1.0] Start: 06-08-2024 Influenza vaccination Influenza Vacc ine (#1) [facility] Start: 2024 Diabetes Screening Diabetes Screenin g [facility] Start: 2024 Screening for malignant neoplasm of colon [facility] Start: 05-09-2024 End: 05-09-2024 Patient encounter procedure 05/09/2024 11:30 AM EDT Office Visit Otolaryngology [address] [address] Waleska Obrien MD [address] [phone] Sneezing [R06.7] Otolaryngology Comment on above: Sneezing [R06.7] Start: 10-08-2022 Depression Assessment Depression Ass essment [facility] Start: 03-22-2022 Suicide precautions [facility] Work Phone: Start: 06-08-2020 Influenza vaccinatio n given Sequential Influenza Vaccine (#1) [facility] Start: 06-08-2017 Influenza vaccination SEQUENTI AL INFLUENZA VACCINE (#1) [facility] Work Phone: Start: 1998 Urine microalbumin profile DTaP,Tdap,Td Vaccine (1 - Tdap) [facility] Start: 1997 Hepatitis C antibody , confirmatory test Hepatitis C Screening [facility] Start: 1997 Hepatitis C Screening Hepatitis C [facility] Start: 1997 Hepatitis C screening Hepatitis C [facility] Start: 1997 HIV Screening HIV Screening [facility] Start: 1997 HIV screening HIV Screening [facility] Start: 1995 COVID-19 Vaccine (1 of 2) COVID-19 Vaccine (1 of 2) [facility] Start: 1994 HIV screening HIV Screening [facility] Start: 1991 Adolescent depressio n screening assessment Depression Screening (PHQ9) [facility] [facility]: [facility] History and physical examination, annual for health maintenance Wellness Visit [facility] Start: 1979 Tetanus vaccination [facility] Work Phone: Patient referral [facility] Work Phone: [facility] Immunizations Immunization Date Immunization Notes Care Provider Fa cility 07-10-2023 influenza virus vacc ine, unspecified formulation Waleska Obrien MD Work Phone: [facility] Payers Date Payer Category Payer Self-pay 2022 Medicaid [employer] Member Sauer bscriber Plan / Payer (Effective 2022-Present) Name: Juan Ramon Bryson Relation to Subscriber: Self Name: Juan Ramon Bryson Payer ID: [id number] (NAIC) Group ID: Not on file Type: Medicaid Address: [address] [address] [place] [address] [id number] 2022 Private Health Insurance HU[employer]NA HU[employer]NA MEDICAID [facility] [id number] 2022-Present [address] [address] [place] [id number] Medicaid [id number] 2022 Medicaid [id number] 2016 Unknown [id number] 2016 Unknown [facility] HMO/GARDUNO CE PLUS/JARRETT/JARRETT PLUS [id number] 2016-Present [id number] 1979 Unknown [id number] 1979 Unknown [id number] 1979 Unknown [id number] 1979 Unknown [id number] 1979 Unknown [id number] Unknown [facility] SEE NOTE [id number] Unknown [id number] Social History Date Type Detail Facility Start: 08-26-2017 End: 09-15-2023 Tobacco smoking status [facility] Never smoker [facility] Start: 1980 Sex Assigned At Not on file [facility] Work Phone: Start: 06-11-2020 End: 09-15-2023 Tobacco use and exposure Never used [facility] Start: 06-11-2020 End: 01-27-2025 Alcohol intake Lifetime non-drinker (finding) [facility] Start: 06-11-2020 History SDOH Alcohol Frequency 1 [facility] Exposure to SARS-CoV -2 (event) Not sure [facility] Start: 03-22-2022 Tobacco smoking stat [facility] Unknown if ever smoked [facility] Work Phone: Start: 1980 Sex Assigned At Male [facility] Work Phone: Start: 09-15-2023 End: 07-29-2024 Gender identity Not on file [facility] Start: 09-15-2023 End: 07-29-2024 History of Social function [facility] Adult Depression Screening Assessment 0 [facility] Clinical Notes 09-05-2023 to 01-27-2025 Jessa Mcgrath APRN.CODING DIRECTOR - 01/27/2025 1:26 PM EDTMLeonides Hutchins MD - 09/24/2024 1:36 PM Mandi Diez APRN.CODING DIRECTOR - 09/11/2024 2:48 PM Jessa Lewis APRN.CODING DIRECTOR - 07/29/2024 1:40 PM EDT Note Date & Type Note Facility 01-27-2025 Note HNO ID: [id number] Author: JESSA MCGRATH APRN.CODING DIRECTOR Service: ? Author Type: Nurse Practitioner Type: Progress Notes Filed: 01/27/2025 14:12 Note Text: This note was created using NoteWriter. Subjective Juan Ramon Bryson is a 44 year old male here today for [facility]. 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 [facility]. He is here today with his Dad. Patient denies changes in health since last office visit. Reports feeling well. Denies concerns or complaints today. I reviewed patients past medical, surgical, social, and family histories today and updated chart. Allergies, chronic medications, and supplements were also reviewed and list is now up to date. HLD: He is taking atorvastatin 20 mg daily. He is tolerating this well. 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 He reports starting symptoms ~ 5 yrs ago. states his mother had it and from this. He is seeing [facility]ist [facility] for management. He is taking tetrabenazine 12.5 mg once daily. He reports this has been effective. He reports symptoms include muscle spasms, anxiety, father reports he is very fidigity. Preventative: all completed by [facility]. He is up to date with flu and COVID vaccines. He reports having colonoscopy 06/2024 at the [facility]. Some elements of above documentation were copied from my progress note of 07/29/24 and have been reexamined and updated where appropriate. All elements reflect the current assessment and medical decision making today . ALLERGIES No Known Allergies Current Outpatient Medications Medication Sig Dispense Refill VITAMIN C 500 mg tablet Take 500 mg by mouth once daily. hydrOXYzine pamoate (VISTARIL) 50 mg capsule Take 50 mg by mouth two times a day as needed for anxiety. multivitamin tablet Take 1 tablet by mouth once daily. FISH OIL 300-1,000 mg cap Take 1 capsule by mouth once daily. tetrabenazine (XENAZINE) 12.5 mg tablet Take 1 tablet by mouth every morning. cetirizine (ZYRTEC) 10 mg tablet Take 1 tablet by mouth once daily. 30 tablet 1 atorvastatin (LIPITOR) 20 mg tablet Take 20 mg by mouth once daily. No current facility-administered medications for this visit. ACTIVE PROBLEM LIST Elizabeth's Disease (Hcc) Obesity, Class III, BMI >= 40 Mixed Hyperlipidemia PAST MEDICAL HISTORY Diagnosis Date Elizabeth's disease (HCC) 10/08/2018 Mixed hyperlipidemia PAST SURGICAL HISTORY Procedure Laterality Date PAST SURGICAL HISTORY OF Right right shoulder surgery Social History Tobacco Use Smoking status: Never Smokeless tobacco: Never Substance Use Topics Alcohol use: Never Drug use: Never Family History Problem Relation Age of Onset other ([facility]) Mother Hypertension Father other ([place]) Sister other ([facility]) Maternal Grandmother Review of Systems Constitutional: Negative for activity change, appetite change, chills, diaphoresis, fatigue, fever and unexpected weight change. HENT: Negative. Eyes: Negative for visual disturbance. Respiratory: Negative for cough, choking, chest tightness, shortness of breath and wheezing. Cardiovascular: Negative for chest pain, palpitations and leg swelling. Gastrointestinal: Negative for abdominal pain, constipation and diarrhea. Endocrine: Negative. Genitourinary: Negative. Negative for difficulty urinating. Musculoskeletal: Negative. Skin: Negative. Neurological: Positive for speech difficulty and weakness. Negative for dizziness, tremors, light-headedness, numbness and headaches. Tremors Psychiatric/Behavioral: Negative for dysphoric mood and sleep disturbance. The patient is not nervous/anxious. Objective BP 124/68 Pulse (!) 56 Resp 18 Ht 177.8 cm (5' 10) Wt 95.1 kg (209 lb 9.6 oz) SpO2 97% BMI 30.07 kg/m? Physical Exam Vitals and nursing note reviewed. Constitutional: General: He is not in acute distress. Appearance: Normal appearance. He is not ill-appearing or diaphoretic. HENT: Head: Normocephalic and atraumatic. Right Ear: External ear normal. Left Ear: External ear normal. Nose: Nose normal. No congestion or rhinorrhea. Mouth/Throat: Pharynx: No oropharyngeal exudate. Eyes: General: Lids are normal. No scleral icterus. Right eye: No discharge. Left eye: No discharge. Conjunctiva/sclera: Conjunctivae normal. Pupils: Pupils are equal, round, and reactive to light. Neck: Vascular: Normal carotid pulses. No carotid bruit. Cardiovascular: Rate and Rhythm: Normal rate and regular rhythm. Pulses: Normal pulses. Heart sounds: Normal heart sounds, S1 normal and S2 normal. No murmur heard. No friction rub. No gallop. Pulmonary: Effort: Pulmonary effort is normal. No accessory muscle usage or respiratory distress. Breath sounds: Normal breath sounds. No decreased breath sounds, wheezing, rhonchi or rales. Chest: Chest wall: No tenderness. Abdominal: General: Bowel sounds are normal. There is no distension. Palpations: Abd (more content not included)... [facility] 01-27-2025 History of Present illness Narrative This note was created using OberScharrerriter. Subjective Juan Ramon Bryson is a 44 year old male here today for [facility]. 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 He goes [facility] for all of his care. He is here today with his Dad. Patient denies changes in health since last office visit. Reports feeling well. Denies concerns or complaints today. I reviewed patients past medical, surgical, social, and family histories today and updated chart. Allergies, chronic medications, and supplements were also reviewed and list is now up to date. HLD: He is taking atorvastatin 20 mg daily. He is tolerating this well. 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 He reports starting symptoms ~ 5 yrs ago. states his mother had it and from this. He is seeing neurologist at the [facility] for management. He is taking tetrabenazine 12.5 mg once daily. He reports this has been effective. He reports symptoms include muscle spasms, anxiety, father reports he is very fidigity. Preventative: all completed by [facility]. He is up to date with flu and COVID vaccines. He reports having colonoscopy 06/2024 at the [facility]. Some elements of above documentation were copied from my progress note of 07/29/24 and have been reexamined and updated where appropriate. All elements reflect the current assessment and medical decision making today . ALLERGIES No Known Allergies Current Outpatient Medications Medication Sig Dispense Refill VITAMIN C 500 mg tablet Take 500 mg by mouth once daily. hydrOXYzine pamoate (VISTARIL) 50 mg capsule Take 50 mg by mouth two times a day as needed for anxiety. multivitamin tablet Take 1 tablet by mouth once daily. FISH OIL 300-1,000 mg cap Take 1 capsule by mouth once daily. tetrabenazine (XENAZINE) 12.5 mg tablet Take 1 tablet by mouth every morning. cetirizine (ZYRTEC) 10 mg tablet Take 1 tablet by mouth once daily. 30 tablet 1 atorvastatin (LIPITOR) 20 mg tablet Take 20 mg by mouth once daily. No current facility-administered medications for this visit. 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 Mixed Hyperlipidemia PAST MEDICAL HISTORY Diagnosis Date Philo's disease (HCC) 10/08/2018 Mixed hyperlipidemia PAST SURGICAL HISTORY Procedure Laterality Date PAST SURGICAL HISTORY OF Right right shoulder surgery Social History Tobacco Use Smoking status: Never Smokeless tobacco: Never Substance Use Topics Alcohol use: Never Drug use: Never Family History Problem Relation Age of Onset other ([facility]) Mother Hypertension Father other ([place]) Sister other ([place]) Maternal Grandmother Review of Systems Constitutional: Negative for activity change, appetite change, chills, diaphoresis, fatigue, fever and unexpected weight change. HENT: Negative. Eyes: Negative for visual disturbance. Respiratory: Negative for cough, choking, chest tightness, shortness of breath and wheezing. Cardiovascular: Negative for chest pain, palpitations and leg swelling. Gastrointestinal: Negative for abdominal pain, constipation and diarrhea. Endocrine: Negative. Genitourinary: Negative. Negative for difficulty urinating. Musculoskeletal: Negative. Skin: Negative. Neurological: Positive for speech difficulty and weakness. Negative for dizziness, tremors, light-headedness, numbness and headaches. Tremors Psychiatric/Behavioral: Negative for dysphoric mood and sleep disturbance. The patient is not nervous/anxious. Objective BP 124/68 Pulse (!) 56 Resp 18 Ht 177.8 cm (5' 10) Wt 95.1 kg (209 lb 9.6 oz) SpO2 97% BMI 30.07 kg/m Physical Exam Vitals and nursing note reviewed. Constitutional: General: He is not in acute distress. Appearance: Normal appearance. He is not ill-appearing or diaphoretic. HENT: Head: Normocephalic and atraumatic. Right Ear: External ear normal. Left Ear: External ear normal. Nose: Nose normal. No congestion or rhinorrhea. Mouth/Throat: Pharynx: No oropharyngeal exudate. Eyes: General: Lids are normal. No scleral icterus. Right eye: No discharge. Left eye: No discharge. Conjunctiva/sclera: Conjunctivae normal. Pupils: Pupils are equal, round, and reactive to light. Neck: Vascular: Normal carotid pulses. No carotid bruit. Cardiovascular: Rate and Rhythm: Normal rate and regular rhythm. Pulses: Normal pulses. Heart sounds: Normal heart sounds, S1 normal and S2 normal. No murmur heard. No friction rub. No gallop. Pulmonary: Effort: Pulmonary effort is normal. No accessory muscle usage or respiratory distress. Breath sounds: Normal breath sounds. No decreased breath sounds, wheezing, rhonchi or rales. Chest: Chest wall: No tenderness. Abdominal: General: Bowel sounds are normal. There is no distension. Palpations: Abdomen is soft. Tenderness: There is no abdominal tenderness. Musculoskeletal: General: No tenderness. Normal range of motion. Cervical back: Normal range of motion and neck supple. Right lower leg: No edema. Left lower leg: No edema. Skin: General: Skin is warm and dry. Coloration: Skin is not pale. Findings: No erythema or rash. Nails: There is no clubbing. Neurological: General: No focal deficit present. Mental Status: He is alert and oriented to person, place, and time. Motor: Tremor present. No abnormal muscle tone. Coordination: Coordination is intact. Coordination normal. Gait: Gait abnormal. Deep Tendon Reflexes: Reflexes are normal and symmetric. Comments: Aphasic Psychiatric: Attention and Perception: Attention and perception normal. Mood and Affect: Mood normal. Speech: Speech normal. Behavior: Behavior normal. Behavior is cooperative. Thought Content: Thought content normal. Cognition and Memory: Cognition and memory normal. Judgment: Judgment normal. ASSESSMENT/PLAN: 1. Wellness examination - ICD9: V70.0, ICD10: Z00.00 (primary diagnosis) - Counseled on healthy diet and regular exercise - Discussed need for and benefit of weight loss. BMI 30.07 kg/(m^2) - Follow up for annual exam in one year 2. Mixed hyperlipidemia - ICD9: 272.2, ICD10: E78.2 - Controlled - Continue current medications - Counseled on healthy diet and regular exercise - Discussed need for and benefit of weight loss. BMI 30.07 kg/(m^2) 3. 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 Pt without concerns - continue medications and management with Neuro at [facility] Jessa Mcgrath APRN.CODING DIRECTOR documented in this encounter [facility] 09-24-2024 Note HNO ID: [id number] Author: LEONIDES LOWE MD Service: ? Author Type: Physician Type: Progress Notes Filed: 09/24/2024 13:46 Note Text: Patient presents with: Nasal Congestion: x 1 year HPI: Feeling nasal congestion for 1 year. He has been evaluated and treated for this multiple times including antibiotic, nasal sprays, ENT consult, and allergy consult. He says his symptoms have not changed at all recently. Positive symptoms: Nasal Congestion, Rhinorrhea, Negative symptoms: Cough, Sore throat, Fever, Headache, Earache, OTC: Using nothing. Previously was prescribed Nasacort and Astelin, doxycycline and Augmentin. 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 Use as directed per package instructions tetrabenazine (XENAZINE) 12.5 mg tablet Take 1 tablet by mouth every morning. cetirizine (ZYRTEC) 10 mg tablet Take 1 tablet by mouth once daily. risperiDONE (RISPERDAL) 1 mg tablet atorvastatin (LIPITOR) 20 mg tablet Take 20 mg by mouth once daily. triamcinolone acetonide (NASACORT AQ) 55 mcg nasal inhaler Use 2 Sprays in each nostril once daily. (Patient not taking: Reported on 09/24/2024) No current facility-administered medications for this visit. ALLERGIES: ALLERGIES No Known Allergies VITALS: BP 124/80 Pulse 80 Temp 36.2 ?C (97.1 ?F) Resp 16 Wt 108.8 kg (239 lb 13.8 oz) SpO2 96% BMI 34.42 kg/m? PHYSICAL EXAM: GEN: alert. Accompanied by his father who assists with the history. HEENT: PERRL, EOMI, conjunctiva clear Ears: canals clear. TMs without erythema, bulge, or effusion Sinuses: non-tender frontal sinus, non-tender maxillary sinuses Nose: patent, small erythema left nasal mucosa, no visualized masses Throat: moist mucous membranes, no erythema, no exudate Neck: supple, no thyromegaly, no lymphadenopathy HEART: regular rate, regular rhythm, no murmurs LUNGS: clear to auscultation, no wheezes or crackles, no increased WOB NEURO: alert to person. Slightly instability with gait but ambulates without assistance. Flails to sit up from supine. ASSESSMENT/PLAN: 1. Chronic rhinitis - ICD9: 472.0, ICD10: J31.0 I offered refill of nasal spray. He was advised refills were sent by his speeder frame tender this fall and should be available at the pharmacy. Antibiotics have not seemed to provide benefit in the past. History and compliance are uncertain because of neurodegenerative disease. Consider follow up with ENT for imaging or scope to further evaluate his symptoms. Leonides Lowe MD [facility] 09-24-2024 History of Present illness Narrative Patient presents with: Nasal Congestion: x 1 year HPI: Feeling nasal congestion for 1 year. He has been evaluated and treated for this multiple times including antibiotic, nasal sprays, ENT consult, and allergy consult. He says his symptoms have not changed at all recently. Positive symptoms: Nasal Congestion, Rhinorrhea, Negative symptoms: Cough, Sore throat, Fever, Headache, Earache, OTC: Using nothing. Previously was prescribed Nasacort and Astelin, doxycycline and Augmentin. 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 Use as directed per package instructions tetrabenazine (XENAZINE) 12.5 mg tablet Take 1 tablet by mouth every morning. cetirizine (ZYRTEC) 10 mg tablet Take 1 tablet by mouth once daily. risperiDONE (RISPERDAL) 1 mg tablet atorvastatin (LIPITOR) 20 mg tablet Take 20 mg by mouth once daily. triamcinolone acetonide (NASACORT AQ) 55 mcg nasal inhaler Use 2 Sprays in each nostril once daily. (Patient not taking: Reported on 09/24/2024) No current facility-administered medications for this visit. ALLERGIES: ALLERGIES No Known Allergies VITALS: BP 124/80 Pulse 80 Temp 36.2 C (97.1 F) Resp 16 Wt 108.8 kg (239 lb 13.8 oz) SpO2 96% BMI 34.42 kg/m PHYSICAL EXAM: GEN: alert. Accompanied by his father who assists with the history. HEENT: PERRL, EOMI, conjunctiva clear Ears: canals clear. TMs without erythema, bulge, or effusion Sinuses: non-tender frontal sinus, non-tender maxillary sinuses Nose: patent, small erythema left nasal mucosa, no visualized masses Throat: moist mucous membranes, no erythema, no exudate Neck: supple, no thyromegaly, no lymphadenopathy HEART: regular rate, regular rhythm, no murmurs LUNGS: clear to auscultation, no wheezes or crackles, no increased WOB NEURO: alert to person. Slightly instability with gait but ambulates without assistance. Flails to sit up from supine. ASSESSMENT/PLAN: 1. Chronic rhinitis - ICD9: 472.0, ICD10: J31.0 I offered refill of nasal spray. He was advised refills were sent by his speeder frame tender this fall and should be available at the pharmacy. Antibiotics have not seemed to provide benefit in the past. History and compliance are uncertain because of neurodegenerative disease. Consider follow up with ENT for imaging or scope to further evaluate his symptoms. Leonides Lowe MD documented in this encounter [facility] 09-11-2024 Note HNO ID: [id number] Author: MANDI RICO APRN.CODING DIRECTOR Service: ? Author Type: Nurse Practitioner Type: Progress Notes Filed: 09/11/2024 15:00 Note Text: This note was created using OberScharrerriter. Subjective Juan Ramon Bryson is a 44 year old male. 47 year old male with PMH Philo's presents for nasal and sinus complaints. Acute onset a few weeks ago (Although at baseline he has seasonal allergies and is on Nasonex) +runny nose +yellow +sinus pressure Denies eye or ear Denies cough Denies CP Denies dyspnea Denies tobacco usage The history is provided by the patient and a relative. 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 Nasal Congestion This is a new problem. The current episode started 1 to 4 weeks ago. The problem has been gradually worsening since onset. There has been no fever. His pain is at a severity of 5/10. The pain is mild. Associated symptoms include congestion, sinus pressure and sneezing. Pertinent negatives include no chills, coughing, diaphoresis, ear pain, headaches, hoarse voice, neck pain, shortness of breath, sore throat or swollen glands. Past treatments include nothing. The treatment provided no relief. 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 MEDICATIONS sod pitaq-tdfjox-rcmqut bottle (NEILMED SINUS RINSE COMPLETE) pkdv Dissolve one packet or sachet in 8 oz (240 mL) or lukewarm distilled, previously boiled or bottled water. Use as directed per package instructions triamcinolone acetonide (NASACORT AQ) 55 mcg nasal inhaler Use 2 Sprays in each nostril once daily. tetrabenazine (XENAZINE) 12.5 mg tablet Take 1 tablet by mouth every morning. cetirizine (ZYRTEC) 10 mg tablet Take 1 tablet by mouth once daily. risperiDONE (RISPERDAL) 1 mg tablet atorvastatin (LIPITOR) 20 mg tablet Take 20 mg by mouth once daily. doxycycline (VIBRA-TABS) 100 mg tablet Take 1 tablet by mouth two times a day for 7 days. FAMILY HISTORY Problem Relation Age of Onset other ([facility]) Mother Hypertension Father other ([facility]) Sister other ([facility]) Maternal Grandmother Social History Tobacco Use Smoking status: Never Smokeless tobacco: Never Substance Use Topics Alcohol use: Never Drug use: Never Review of Systems Unable to perform ROS: Other (Hx of [place]) Constitutional: Negative for chills and diaphoresis. HENT: Positive for congestion, postnasal drip, rhinorrhea, sinus pressure and sneezing. Negative for ear pain, hoarse voice and sore throat. Respiratory: Negative for cough and shortness of breath. Musculoskeletal: Negative for neck pain. Neurological: Negative for headaches. Objective BP 119/83 Pulse 74 Temp 36.4 ?C (97.5 ?F) Resp 22 Wt 108 kg (238 lb 1.6 oz) SpO2 97% BMI 34.16 kg/m? Physical Exam Vitals and nursing note reviewed. Constitutional: General: He is not in acute distress. Appearance: Normal appearance. He is not ill-appearing, toxic-appearing or diaphoretic. HENT: Head: Normocephalic and atraumatic. Right Ear: External ear normal. Left Ear: External ear normal. Ears: Comments: +maxillary sinus TTP Nose: Congestion present. No rhinorrhea. Mouth/Throat: Mouth: Mucous membranes are moist. Pharynx: Oropharynx is clear. Posterior oropharyngeal erythema present. No oropharyngeal exudate. Eyes: General: Right eye: No discharge. Left eye: No discharge. Extraocular Movements: Extraocular movements intact. Conjunctiva/sclera: Conjunctivae normal. Pupils: Pupils are equal, round, and reactive to light. Cardiovascular: Rate and Rhythm: Normal rate and regular rhythm. Pulses: Normal pulses. Heart sounds: Normal heart sounds. No murmur heard. No friction rub. No gallop. Pulmonary: Effort: Pulmonary effort is normal. No respiratory distress. Breath sounds: Normal breath sounds. No stridor. No wheezing, rhonchi or rales. Chest: Chest wall: No tenderness. Abdominal: General: Abdomen is flat. There is no distension. Palpations: Abdomen is soft. There is no mass. Tenderness: There is no abdominal tenderness. There is no guarding or rebound. Hernia: No hernia is present. Musculoskeletal: General: No swelling, tenderness, deformity or signs of injury. Normal range of motion. Cervical back: Normal range of motion and neck supple. No rigidity or tenderness. Right lower leg: No edema. Left lower leg: No edema. Lymphadenopathy: Cervical: Cervical adenopathy present. Skin: General: Skin is warm and dry. Capillary Refill: Capillary refill takes less than 2 seconds. Coloration: Skin is not jaundiced or pale. Findings: No bruising, lesion or rash. Neurological: Mental Status: He is alert. Mental status is at baseline. Gait: Gait abnormal. (more content not included)... [facility] 09-11-2024 History of Present illness Narrative This note was created using OberScharrerriter. Subjective Juan Ramon Bryson is a 44 year old male. 47 year old male with PMH Elizabeth's presents for nasal and sinus complaints. Acute onset a few weeks ago (Although at baseline he has seasonal allergies and is on Nasonex) +runny nose +yellow +sinus pressure Denies eye or ear Denies cough Denies CP Denies dyspnea Denies tobacco usage The history is provided by the patient and a relative. 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 Nasal Congestion This is a new problem. The current episode started 1 to 4 weeks ago. The problem has been gradually worsening since onset. There has been no fever. His pain is at a severity of 5/10. The pain is mild. Associated symptoms include congestion, sinus pressure and sneezing. Pertinent negatives include no chills, coughing, diaphoresis, ear pain, headaches, hoarse voice, neck pain, shortness of breath, sore throat or swollen glands. Past treatments include nothing. The treatment provided no relief. 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 MEDICATIONS sod [id number] bottle (NEILMED SINUS RINSE COMPLETE) pkdv Dissolve one packet or sachet in 8 oz (240 mL) or lukewarm distilled, previously boiled or bottled water. Use as directed per package instructions triamcinolone acetonide (NASACORT AQ) 55 mcg nasal inhaler Use 2 Sprays in each nostril once daily. tetrabenazine (XENAZINE) 12.5 mg tablet Take 1 tablet by mouth every morning. cetirizine (ZYRTEC) 10 mg tablet Take 1 tablet by mouth once daily. risperiDONE (RISPERDAL) 1 mg tablet atorvastatin (LIPITOR) 20 mg tablet Take 20 mg by mouth once daily. doxycycline (VIBRA-TABS) 100 mg tablet Take 1 tablet by mouth two times a day for 7 days. FAMILY HISTORY Problem Relation Age of Onset other ([facility]) Mother Hypertension Father other ([facility]) Sister other ([facility]) Maternal Grandmother Social History Tobacco Use Smoking status: Never Smokeless tobacco: Never Substance Use Topics Alcohol use: Never Drug use: Never Review of Systems Unable to perform ROS: Other (Hx of Huntingtons) Constitutional: Negative for chills and diaphoresis. HENT: Positive for congestion, postnasal drip, rhinorrhea, sinus pressure and sneezing. Negative for ear pain, hoarse voice and sore throat. Respiratory: Negative for cough and shortness of breath. Musculoskeletal: Negative for neck pain. Neurological: Negative for headaches. Objective BP 119/83 Pulse 74 Temp 36.4 C (97.5 F) Resp 22 Wt 108 kg (238 lb 1.6 oz) SpO2 97% BMI 34.16 kg/m Physical Exam Vitals and nursing note reviewed. Constitutional: General: He is not in acute distress. Appearance: Normal appearance. He is not ill-appearing, toxic-appearing or diaphoretic. HENT: Head: Normocephalic and atraumatic. Right Ear: External ear normal. Left Ear: External ear normal. Ears: Comments: +maxillary sinus TTP Nose: Congestion present. No rhinorrhea. Mouth/Throat: Mouth: Mucous membranes are moist. Pharynx: Oropharynx is clear. Posterior oropharyngeal erythema present. No oropharyngeal exudate. Eyes: General: Right eye: No discharge. Left eye: No discharge. Extraocular Movements: Extraocular movements intact. Conjunctiva/sclera: Conjunctivae normal. Pupils: Pupils are equal, round, and reactive to light. Cardiovascular: Rate and Rhythm: Normal rate and regular rhythm. Pulses: Normal pulses. Heart sounds: Normal heart sounds. No murmur heard. No friction rub. No gallop. Pulmonary: Effort: Pulmonary effort is normal. No respiratory distress. Breath sounds: Normal breath sounds. No stridor. No wheezing, rhonchi or rales. Chest: Chest wall: No tenderness. Abdominal: General: Abdomen is flat. There is no distension. Palpations: Abdomen is soft. There is no mass. Tenderness: There is no abdominal tenderness. There is no guarding or rebound. Hernia: No hernia is present. Musculoskeletal: General: No swelling, tenderness, deformity or signs of injury. Normal range of motion. Cervical back: Normal range of motion and neck supple. No rigidity or tenderness. Right lower leg: No edema. Left lower leg: No edema. Lymphadenopathy: Cervical: Cervical adenopathy present. Skin: General: Skin is warm and dry. Capillary Refill: Capillary refill takes less than 2 seconds. Coloration: Skin is not jaundiced or pale. Findings: No bruising, lesion or rash. Neurological: Mental Status: He is alert. Mental status is at baseline. Gait: Gait abnormal. Comments: @ baseline per dad at bedside related to history of Huntingtons Disease Psychiatric: Mood and Affect: Mood normal. Behavior: Behavior normal. Thought Content: Thought content normal. Assessment and Plan ASSESSMENT/PLAN: 1. Maxillary sinusitis, unspecified chronicity - ICD9: 473.0, ICD10: J32.0 ROS and HPI somewhat limited related to patient history of Philo Disease Uses Nasonex @ home States congestion worsening - Will begin treatment with as per antibiotic as written, see orders - The patient should also be given OTC cough and cold meds as needed and warm salt water gargles, throat lozenges and/or OTC throat spray as needed for the first 5-7 days of treatment. - Supportive care with plenty of fluids, rest, and analgesia prn. - Follow up in 3-5 days if symptoms persist or worsen. Mandi Rico APRN.ROSARIO documented in this encounter [facility] 07-29-2024 Note HNO ID: [id number] Author: JESSA MCGRATH APRN.CNP Service: ? Author Type: Nurse Practitioner Type: Progress Notes Filed: 07/29/2024 14:03 Note Text: This note was created using OberScharrerriter. Subjective Juan Ramon Bryson is a 44 year old male here today for follow up. PMH HLD, Elizabeth's disease. [facility]. Concerns today is he has stuffy nose. No drainage. He is using Nasacort daily for this. He is also taking zyrtec. He was treated at urgent care on 07/11/24 with Augmentin for his symptoms reports no change. He reports he has been stuffy for over a year. He reports he seen ENT for this in the past, he states in January. She also reports he had allergy testing as well just recently. HLD: He is taking atorvastatin 20 mg daily. He is tolerating this well. Philo disease: DX ~ 5 yrs ago with testing. States his mother had it and from this. He reports he started with symptoms a couple years ago. He is taking risperdal 1 mg daily. He reports this has been effective. He reports symptoms include muscle spasms, anxiety, father reports he is very fidigity. [facility] He is up to date with flu and COVID vaccines. He reports having colonoscopy last month [place] Jun at the [facility]. He reports he was working in [place] prior to [place]tons. States he is no longer able to drive. Some elements of above documentation were copied from my progress note of 10/09/23 and have been reexamined and updated where appropriate. All elements reflect the current assessment and medical decision making today . ALLERGIES No Known Allergies Current Outpatient Medications Medication Sig Dispense Refill triamcinolone acetonide (NASACORT AQ) 55 mcg nasal inhaler Use 2 Sprays in each nostril once daily. 16.9 mL 11 tetrabenazine (XENAZINE) 12.5 mg tablet Take 1 tablet by mouth every morning. cetirizine (ZYRTEC) 10 mg tablet Take 1 tablet by mouth once daily. 30 tablet 1 risperiDONE (RISPERDAL) 1 mg tablet atorvastatin (LIPITOR) 20 mg tablet Take 20 mg by mouth once daily. No current facility-administered medications for this visit. 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 HENT: Positive for congestion. Negative for dental problem, drooling, ear pain, facial swelling, mouth sores, postnasal drip, rhinorrhea, sinus pressure, sinus pain, sore throat, tinnitus and trouble swallowing. Respiratory: Negative for cough, shortness of breath and wheezing. Cardiovascular: Negative for chest pain, palpitations and leg swelling. Gastrointestinal: Negative for abdominal pain, diarrhea, nausea and vomiting. Neurological: Negative for dizziness, tremors, syncope, weakness, light-headedness, numbness and headaches. Hematological: Negative for adenopathy. Does not bruise/bleed easily. Objective Physical Exam Vitals and nursing note reviewed. Constitutional: General: He is not in acute distress. Appearance: He is not ill-appearing. HENT: Head: Normocephalic and atraumatic. Right Ear: Tympanic membrane, ear canal and external ear normal. There is no impacted cerumen. Left Ear: Tympanic membrane, ear canal and external ear normal. There is no impacted cerumen. Nose: Nose normal. No congestion or rhinorrhea. Mouth/Throat: Mouth: Mucous membranes are moist. Pharynx: Oropharynx is clear. No oropharyngeal exudate. Eyes: Conjunctiva/sclera: Conjunctivae normal. Cardiovascular: Rate and Rhythm: Normal rate and regular rhythm. Pulses: Normal pulses. Heart sounds: Normal heart sounds, S1 normal and S2 normal. No murmur heard. Pulmonary: Effort: Pulmonary effort is normal. No respiratory distress. Breath sounds: Normal breath sounds. No wheezing or rhonchi. Musculoskeletal: Right lower leg: No edema. Left lower leg: No edema. Skin: General: Skin is warm and dry. Neurological: Mental Status: He is alert and oriented to person, place, and time. Psychiatric: Mood and Affect: Mood normal. Affect is flat. Behavior: Behavior is slowed. Thought Content: Thought content normal. Judgment: Judgment normal. Latest Ref Rng 06/24/2024 RBC 4.47 - 5.83 M/uL 5.23 (E) HGB 13.6 - 17.4 g/dL 15.7 (E) HCT 40.0 - 51.0 % 46.4 (E) MCV 80.0 - 96.0 fL 88.6 (E) MCH 27 (more content not included)... [facility] 07-29-2024 History of Present illness Narrative This note was created using OberScharrerriter. Subjective Juan Ramon Bryson is a 44 year old male here today for follow up. PMH HLD, Philo's disease. [facility]. Concerns today is he has stuffy nose. No drainage. He is using Nasacort daily for this. He is also taking zyrtec. He was treated at urgent care on 07/11/24 with Augmentin for his symptoms reports no change. He reports he has been stuffy for over a year. He reports he seen ENT for this in the past, he states in January. She also reports he had allergy testing as well just recently. HLD: He is taking atorvastatin 20 mg daily. He is tolerating this well. 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 States his mother had it and from this. He reports he started with symptoms a couple years ago. He is taking risperdal 1 mg daily. He reports this has been effective. He reports symptoms include muscle spasms, anxiety, father reports he is very fidigity. Preventative: all completed by [facility]. He is up to date with flu and COVID vaccines. He reports having colonoscopy last month [facility] Jun at the [facility]. He reports he was working in [place] prior to [place]. States he is no longer able to drive. Some elements of above documentation were copied from my progress note of 10/09/23 and have been reexamined and updated where appropriate. All elements reflect the current assessment and medical decision making today . ALLERGIES No Known Allergies Current Outpatient Medications Medication Sig Dispense Refill triamcinolone acetonide (NASACORT AQ) 55 mcg nasal inhaler Use 2 Sprays in each nostril once daily. 16.9 mL 11 tetrabenazine (XENAZINE) 12.5 mg tablet Take 1 tablet by mouth every morning. cetirizine (ZYRTEC) 10 mg tablet Take 1 tablet by mouth once daily. 30 tablet 1 risperiDONE (RISPERDAL) 1 mg tablet atorvastatin (LIPITOR) 20 mg tablet Take 20 mg by mouth once daily. No current facility-administered medications for this visit. 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 Mixed Hyperlipidemia PAST MEDICAL HISTORY Diagnosis Date Philo's disease (HCC) 10/08/2018 Mixed hyperlipidemia PAST SURGICAL HISTORY Procedure Laterality Date PAST SURGICAL HISTORY OF Right right shoulder surgery Social History Tobacco Use Smoking status: Never Smokeless tobacco: Never Substance Use Topics Alcohol use: Never Drug use: Never Family History Problem Relation Age of Onset other ([facility]) Mother Hypertension Father other ([facility]) Sister other ([facility]) Maternal Grandmother Review of Systems Constitutional: Negative for activity change, appetite change, chills, fatigue and fever. HENT: Positive for congestion. Negative for dental problem, drooling, ear pain, facial swelling, mouth sores, postnasal drip, rhinorrhea, sinus pressure, sinus pain, sore throat, tinnitus and trouble swallowing. Respiratory: Negative for cough, shortness of breath and wheezing. Cardiovascular: Negative for chest pain, palpitations and leg swelling. Gastrointestinal: Negative for abdominal pain, diarrhea, nausea and vomiting. Neurological: Negative for dizziness, tremors, syncope, weakness, light-headedness, numbness and headaches. Hematological: Negative for adenopathy. Does not bruise/bleed easily. Objective Physical Exam Vitals and nursing note reviewed. Constitutional: General: He is not in acute distress. Appearance: He is not ill-appearing. HENT: Head: Normocephalic and atraumatic. Right Ear: Tympanic membrane, ear canal and external ear normal. There is no impacted cerumen. Left Ear: Tympanic membrane, ear canal and external ear normal. There is no impacted cerumen. Nose: Nose normal. No congestion or rhinorrhea. Mouth/Throat: Mouth: Mucous membranes are moist. Pharynx: Oropharynx is clear. No oropharyngeal exudate. Eyes: Conjunctiva/sclera: Conjunctivae normal. Cardiovascular: Rate and Rhythm: Normal rate and regular rhythm. Pulses: Normal pulses. Heart sounds: Normal heart sounds, S1 normal and S2 normal. No murmur heard. Pulmonary: Effort: Pulmonary effort is normal. No respiratory distress. Breath sounds: Normal breath sounds. No wheezing or rhonchi. Musculoskeletal: Right lower leg: No edema. Left lower leg: No edema. Skin: General: Skin is warm and dry. Neurological: Mental Status: He is alert and oriented to person, place, and time. Psychiatric: Mood and Affect: Mood normal. Affect is flat. Behavior: Behavior is slowed. Thought Content: Thought content normal. Judgment: Judgment normal. Latest Ref [facility] 06/24/2024 RBC 4.47 - 5.83 M/uL 5.23 (E) HGB 13.6 - 17.4 g/dL 15.7 (E) HCT 40.0 - 51.0 % 46.4 (E) MCV 80.0 - 96.0 fL 88.6 (E) MCH 27.0 - 31.0 pg 30.0 (E) MCHC 31.5 - 36.5 g/dL 33.9 (E) RDW 11.2 - 15.8 K/uL 13.4 ! (NORMAL) (E) Platelet 150 - 400 K/uL 278 (E) MPV 7.4 - 11.4 fL 7.6 (E) LYMPH % 21.0 - 51.0 % 26.7 (E) BASO % 0 - 3.0 % 0.5 (E) Albumin 3.2 - 4.6 g/dL 4.4 (E) Albumin 3.2 - 4.6 g/dL 4.4 (E) BUN 9 - 23 mg/dL 16 (E) Calcium 8.5 - 10.1 mg/dL 9.7 (E) Creatinine 0.70 - 1.00 mg/dL 1.0 (E) CO2 22 - 29 MEQ/L 20 ! (NORMAL) (E) Glucose 74 - 100 mg/dL 93 (E) Phosphorus 2.5 - 4.9 mg/dL 3.0 (E) Sodium 136 - 145 mmol/L 139 (E) Chloride 98 - 107 mmol/L 109 ! (E) Potassium 3.5 - 5.1 mmol/L 3.9 (E) Anion Gap 10 - 20 mmol/L 14 (E) eGFR 95 (E) Total Protein 6.4 - 8.3 gm/dL 7.3 (E) Bili Total 0.2 - 1.2 mg/dL 0.9 (E) Alkaline Phosphatase 46 - 116 U/L 103 ! (E) AST 5 - 34 IU/L 24 ! (NORMAL) (E) ALT 0 - 55 IU/L 43 (E) Triglyceride 150 mg/dL 116 (E) CHOLESTEROL, TOTAL 0 - 200 MG/DL 119 (E) HDC-L 41 mg/dL 29 (E) LDL Chol, calculated 100 MG/DL 74 (E) Hemoglobin A1C 3.6 - 5.7 % 5.3 (E) Legend: ! (NORMAL) Normal ! Abnormal (E) External lab result Assessment and Plan ASSESSMENT/PLAN: 1. Mixed hyperlipidemia - ICD9: 272.2, ICD10: E78.2 (primary diagnosis) - Controlled - Continue current medications - Counseled on healthy diet and regular exercise - Discussed need for and benefit of weight loss. BMI 32.71 kg/(m^2) 2. 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 [facility] 3. Nasal congestion - ICD9: 478.19, ICD10: R09.81 - Chronic, he just completed course of Augmentin for urgent care. Exam unremarkable today. Encouraged continued use of normal saline nasal spray Jessa Mcgrath APRN.CODING DIRECTOR documented in this encounter [facility] 07-21-2024 Note HNO ID: [id number] Author: HIMANSHU BIRD APRN.ROSARIO Service: ? Author Type: Nurse Practitioner Type: Progress Notes Filed: 07/21/2024 13:54 Note Text: Subjective HPI Nontoxic-appearing male presents urgent care chief complaint chronic rhinorrhea. Duration of symptoms 1 year. Associated symptoms nasal congestion. Has been on multiple courses of antibiotics in the last 2 months. This is not helped. Was seen by ENT/speeder frame tender and told it was allergies. Presents today for evaluation. States sinus drainage is worsening. No fevers. No vomiting or abdominal pain. Past medical history prescription medications allergies reviewed. 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 MEDICATIONS triamcinolone acetonide (NASACORT AQ) 55 mcg nasal inhaler Use 2 Sprays in each nostril once daily. tetrabenazine (XENAZINE) 12.5 mg tablet Take 1 tablet by mouth every morning. cetirizine (ZYRTEC) 10 mg tablet Take 1 tablet by mouth once daily. atorvastatin (LIPITOR) 20 mg tablet Take 20 mg by mouth once daily. risperiDONE (RISPERDAL) 1 mg tablet (Patient not taking: Reported on 06/11/2024) FAMILY HISTORY Problem Relation Age of Onset other ([facility]) Mother Hypertension Father other ([facility]) Sister other ([facility]) Maternal Grandmother Social History Tobacco Use Smoking status: Never Smokeless tobacco: Never BP 110/78 Pulse 76 Temp 36.4 ?C (97.6 ?F) (Tympanic) Resp 16 Wt 103.3 kg (227 lb 11.8 oz) SpO2 96% BMI 32.68 kg/m? Review of Systems Constitutional: Negative for chills, fever and malaise/fatigue. HENT: Positive for congestion. Negative for ear discharge, ear pain, sinus pain and sore throat. Eyes: Negative for blurred vision, pain, discharge and redness. Respiratory: Negative for cough, hemoptysis, sputum production, shortness of breath, wheezing and stridor. Cardiovascular: Negative for chest pain. Gastrointestinal: Negative for abdominal pain, diarrhea, nausea and vomiting. Musculoskeletal: Negative for myalgias. Skin: Negative for itching and rash. Neurological: Negative for dizziness and headaches. Objective Physical Exam Constitutional: General: He is not in acute distress. Appearance: He is not diaphoretic. HENT: Head: Normocephalic. Jaw: No trismus, tenderness, swelling or pain on movement. Nose: Rhinorrhea present. Mouth/Throat: Mouth: Mucous membranes are moist. Pharynx: Oropharynx is clear. Uvula midline. No pharyngeal swelling, oropharyngeal exudate, posterior oropharyngeal erythema or uvula swelling. Eyes: Conjunctiva/sclera: Conjunctivae normal. Pupils: Pupils are equal, round, and reactive to light. Cardiovascular: Rate and Rhythm: Normal rate and regular rhythm. Heart sounds: Normal heart sounds. Pulmonary: Effort: Pulmonary effort is normal. No tachypnea, accessory muscle usage or respiratory distress. Breath sounds: Normal breath sounds. No stridor. No wheezing, rhonchi or rales. Musculoskeletal: Cervical back: Normal range of motion and neck supple. No edema, erythema, rigidity or tenderness. No pain with movement. Normal range of motion. Lymphadenopathy: Cervical: No cervical adenopathy. Skin: General: Skin is warm and dry. Neurological: Mental Status: He is alert and oriented to person, place, and time. ASSESSMENT/PLAN: 1. Chronic rhinitis - ICD9: 472.0, ICD10: J31.0 Diagnosed with chronic rhinitis. Will try short-term use of Afrin and nasal irrigation. Encouraged following up with ENT. Patient was educated on supportive therapies. Patient will follow up with primary care provider as needed. Patient was instructed to immediately proceed to emergency room for any new, worsening, or symptoms lasting longer than anticipated. The patient's clinical presentation is otherwise unremarkable at this time. Based on exam and clinical finding, the patient is stable for discharge. Plan of care was discussed with patient. Patient verbalizes understanding and agrees to plan of care. This note was generated using Voradius software. It may contain errors in wording, punctuation, or spelling. Himanshu Bird APRN.CODING DIRECTOR [facility] 07-21-2024 Note HNO ID: [id number] Author: HIMANSHU BIRD APRN.ROSARIO Service: ? Author Type: Nurse Practitioner Type: Progress Notes Filed: 07/21/2024 13:54 Note Text: Subjective HPI ROS Objective Physical Exam [facility] 07-21-2024 History of Present illness Narrative Subjective HPI Nontoxic-appearing male presents urgent care chief complaint chronic rhinorrhea. Duration of symptoms 1 year. Associated symptoms nasal congestion. Has been on multiple courses of antibiotics in the last 2 months. This is not helped. Was seen by ENT/speeder frame tender and told it was allergies. Presents today for evaluation. States sinus drainage is worsening. No fevers. No vomiting or abdominal pain. Past medical history prescription medications allergies reviewed. 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 MEDICATIONS triamcinolone acetonide (NASACORT AQ) 55 mcg nasal inhaler Use 2 Sprays in each nostril once daily. tetrabenazine (XENAZINE) 12.5 mg tablet Take 1 tablet by mouth every morning. cetirizine (ZYRTEC) 10 mg tablet Take 1 tablet by mouth once daily. atorvastatin (LIPITOR) 20 mg tablet Take 20 mg by mouth once daily. risperiDONE (RISPERDAL) 1 mg tablet (Patient not taking: Reported on 06/11/2024) FAMILY HISTORY Problem Relation Age of Onset other ([facility]) Mother Hypertension Father other ([facility]) Sister other ([facility]) Maternal Grandmother Social History Tobacco Use Smoking status: Never Smokeless tobacco: Never BP 110/78 Pulse 76 Temp 36.4 C (97.6 F) (Tympanic) Resp 16 Wt 103.3 kg (227 lb 11.8 oz) SpO2 96% BMI 32.68 kg/m Review of Systems Constitutional: Negative for chills, fever and malaise/fatigue. HENT: Positive for congestion. Negative for ear discharge, ear pain, sinus pain and sore throat. Eyes: Negative for blurred vision, pain, discharge and redness. Respiratory: Negative for cough, hemoptysis, sputum production, shortness of breath, wheezing and stridor. Cardiovascular: Negative for chest pain. Gastrointestinal: Negative for abdominal pain, diarrhea, nausea and vomiting. Musculoskeletal: Negative for myalgias. Skin: Negative for itching and rash. Neurological: Negative for dizziness and headaches. Objective Physical Exam Constitutional: General: He is not in acute distress. Appearance: He is not diaphoretic. HENT: Head: Normocephalic. Jaw: No trismus, tenderness, swelling or pain on movement. Nose: Rhinorrhea present. Mouth/Throat: Mouth: Mucous membranes are moist. Pharynx: Oropharynx is clear. Uvula midline. No pharyngeal swelling, oropharyngeal exudate, posterior oropharyngeal erythema or uvula swelling. Eyes: Conjunctiva/sclera: Conjunctivae normal. Pupils: Pupils are equal, round, and reactive to light. Cardiovascular: Rate and Rhythm: Normal rate and regular rhythm. Heart sounds: Normal heart sounds. Pulmonary: Effort: Pulmonary effort is normal. No tachypnea, accessory muscle usage or respiratory distress. Breath sounds: Normal breath sounds. No stridor. No wheezing, rhonchi or rales. Musculoskeletal: Cervical back: Normal range of motion and neck supple. No edema, erythema, rigidity or tenderness. No pain with movement. Normal range of motion. Lymphadenopathy: Cervical: No cervical adenopathy. Skin: General: Skin is warm and dry. Neurological: Mental Status: He is alert and oriented to person, place, and time. ASSESSMENT/PLAN: 1. Chronic rhinitis - ICD9: 472.0, ICD10: J31.0 Diagnosed with chronic rhinitis. Will try short-term use of Afrin and nasal irrigation. Encouraged following up with ENT. Patient was educated on supportive therapies. Patient will follow up with primary care provider as needed. Patient was instructed to immediately proceed to emergency room for any new, worsening, or symptoms lasting longer than anticipated. The patient's clinical presentation is otherwise unremarkable at this time. Based on exam and clinical finding, the patient is stable for discharge. Plan of care was discussed with patient. Patient verbalizes understanding and agrees to plan of care. This note was generated using Voradius software. It may contain errors in wording, punctuation, or spelling. Himanshu Bird APRN.CODING DIRECTOR Subjective HPI ROS Objective Physical Exam documented in this encounter [facility] 07-11-2024 Note HNO ID: [id number] Author: JACY JACQUES PA Service: ? Author Type: Physician Dock Associate Type: Progress Notes Filed: 07/11/2024 12:59 Note Text: This note was created using Captio. Subjective Juan Ramon Bryson is a 44 year old male. HPI 44-year-old male presents for sinus congestion that has been going on for 6 + months. Patient states he has had a runny nose for the past several months. He states it is a clear runny nose. He has been seen several times for this in the past several months. - Seen here 03/07 for it and prescribed Flonase and Zyrtec. He states this did not help. He - - SAW ENT- Dr. Obrien 05/09- RX Astelin and recommended considering allergy - Seen here again on 05/14. He was treated with Augmentin. He was referred to allergy. - Saw speeder frame tender on 06/11. Had skin testing which was negative to inhalant allergens and percutaneous testing. Prescribed Nasacort. Patient presents today for persistent symptoms. States he has been using the Nasacort, taken all medications prescribed previously and no improvement in symptoms. No fevers. No cough. No headaches. No other complaint. 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 MEDICATIONS triamcinolone acetonide (NASACORT AQ) 55 mcg nasal inhaler Use 2 Sprays in each nostril once daily. tetrabenazine (XENAZINE) 12.5 mg tablet Take 1 tablet by mouth every morning. cetirizine (ZYRTEC) 10 mg tablet Take 1 tablet by mouth once daily. atorvastatin (LIPITOR) 20 mg tablet Take 20 mg by mouth once daily. doxycycline (VIBRA-TABS) 100 mg tablet Take 1 tablet by mouth two times a day for 5 days. risperiDONE (RISPERDAL) 1 mg tablet (Patient not taking: Reported on 06/11/2024) FAMILY HISTORY Problem Relation Age of Onset other ([facility]) Mother Hypertension Father other ([facility]) Sister other ([facility]) Maternal Grandmother Social History Tobacco Use Smoking status: Never Smokeless tobacco: Never Review of Systems Constitutional: Negative for chills and fever. HENT: Positive for congestion, rhinorrhea and sinus pressure. Negative for sore throat. Respiratory: Negative for cough and shortness of breath. Gastrointestinal: Negative for diarrhea and vomiting. Objective BP 116/80 Pulse 68 Temp 36.2 ?C (97.1 ?F) Resp 18 Wt 101.1 kg (222 lb 14.2 oz) SpO2 97% BMI 31.98 kg/m? Physical Exam Vitals and nursing note reviewed. Constitutional: General: He is not in acute distress. Appearance: Normal appearance. He is not toxic-appearing. HENT: Right Ear: Tympanic membrane and ear canal normal. Left Ear: Tympanic membrane and ear canal normal. Nose: Mucosal edema present. Mouth/Throat: Mouth: Mucous membranes are moist. Eyes: Conjunctiva/sclera: Conjunctivae normal. Cardiovascular: Rate and Rhythm: Normal rate and regular rhythm. Pulmonary: Effort: Pulmonary effort is normal. Breath sounds: Normal breath sounds. Skin: General: Skin is warm and dry. Neurological: Mental Status: He is alert. Assessment and Plan ASSESSMENT/PLAN: 1. Sinus congestion - ICD9: 478.19, ICD10: R09.81 -Patient has seen multiple specialists for this over the past several months. He has also been seen at [facility] twice. -He has been treated with Zyrtec, Flonase, Astelin, Nasacort. He had allergy testing that was all negative. -Persistent congestion. Will try doxycycline due to length of symptoms. -Recommend continuing the Zyrtec and Nasacort. -If symptoms are persistent, needs to follow-up with PCP or ENT again. Diagnosis and treatment plan were discussed and questions were answered to the patient's satisfaction. Pt acknowledged understanding of concepts and follow up plan. Specific signs and symptoms that would indicate the need for higher level of care were discussed in detail warranting prompt ER evaluation. SVETA Lala [facility] 07-11-2024 History of Present illness Narrative This note was created using OberScharrerriter. Subjective Juan Ramon Bryson is a 44 year old male. HPI 44-year-old male presents for sinus congestion that has been going on for 6 + months. Patient states he has had a runny nose for the past several months. He states it is a clear runny nose. He has been seen several times for this in the past several months. - Seen here 03/07 for it and prescribed Flonase and Zyrtec. He states this did not help. He - - SAW ENT- Dr. Obrien 05/09- RX Astelin and recommended considering allergy - Seen here again on 05/14. He was treated with Augmentin. He was referred to allergy. - Saw speeder frame tender on 06/11. Had skin testing which was negative to inhalant allergens and percutaneous testing. Prescribed Nasacort. Patient presents today for persistent symptoms. States he has been using the Nasacort, taken all medications prescribed previously and no improvement in symptoms. No fevers. No cough. No headaches. No other complaint. 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 MEDICATIONS triamcinolone acetonide (NASACORT AQ) 55 mcg nasal inhaler Use 2 Sprays in each nostril once daily. tetrabenazine (XENAZINE) 12.5 mg tablet Take 1 tablet by mouth every morning. cetirizine (ZYRTEC) 10 mg tablet Take 1 tablet by mouth once daily. atorvastatin (LIPITOR) 20 mg tablet Take 20 mg by mouth once daily. doxycycline (VIBRA-TABS) 100 mg tablet Take 1 tablet by mouth two times a day for 5 days. risperiDONE (RISPERDAL) 1 mg tablet (Patient not taking: Reported on 06/11/2024) FAMILY HISTORY Problem Relation Age of Onset other ([facility]) Mother Hypertension Father other ([facility]) Sister other ([facility]) Maternal Grandmother Social History Tobacco Use Smoking status: Never Smokeless tobacco: Never Review of Systems Constitutional: Negative for chills and fever. HENT: Positive for congestion, rhinorrhea and sinus pressure. Negative for sore throat. Respiratory: Negative for cough and shortness of breath. Gastrointestinal: Negative for diarrhea and vomiting. Objective BP 116/80 Pulse 68 Temp 36.2 C (97.1 F) Resp 18 Wt 101.1 kg (222 lb 14.2 oz) SpO2 97% BMI 31.98 kg/m Physical Exam Vitals and nursing note reviewed. Constitutional: General: He is not in acute distress. Appearance: Normal appearance. He is not toxic-appearing. HENT: Right Ear: Tympanic membrane and ear canal normal. Left Ear: Tympanic membrane and ear canal normal. Nose: Mucosal edema present. Mouth/Throat: Mouth: Mucous membranes are moist. Eyes: Conjunctiva/sclera: Conjunctivae normal. Cardiovascular: Rate and Rhythm: Normal rate and regular rhythm. Pulmonary: Effort: Pulmonary effort is normal. Breath sounds: Normal breath sounds. Skin: General: Skin is warm and dry. Neurological: Mental Status: He is alert. Assessment and Plan ASSESSMENT/PLAN: 1. Sinus congestion - ICD9: 478.19, ICD10: R09.81 -Patient has seen multiple specialists for this over the past several months. He has also been seen at [facility] twice. -He has been treated with Zyrtec, Flonase, Astelin, Nasacort. He had allergy testing that was all negative. -Persistent congestion. Will try doxycycline due to length of symptoms. -Recommend continuing the Zyrtec and Nasacort. -If symptoms are persistent, needs to follow-up with PCP or ENT again. Diagnosis and treatment plan were discussed and questions were answered to the patient's satisfaction. Pt acknowledged understanding of concepts and follow up plan. Specific signs and symptoms that would indicate the need for higher level of care were discussed in detail warranting prompt ER evaluation. SVETA Lala documented in this encounter [facility] 06-11-2024 Instructions Phyllis Melendez MD - 06/11/2024 11:19 AM EDT Allergy skin test to inhalant allergens were negative. Use triamcinolone/Nasacort nasal spray 2 sprays each nostril once a day every day on a regular basis. You will not notice improvement right away so please try to use regularly for at least 1 month before you decide whether or not the medication is helpful. documented in this encounter [facility] 06-11-2024 Nurse Note Patient referred by PCP for runny nose. Patient states he has had runny nose for over a year. Zyrtec doesn't help. He has not tried nasal sprays. He has been off antihistamines for 5 days. [facility] 06-11-2024 Nurse Note Patient referred by PCP for runny nose. Patient states he has had runny nose for over a year. Zyrtec doesn't help. He has not tried nasal sprays. He has been off antihistamines for 5 days. documented in this encounter [facility] 06-11-2024 Note HNO ID: [id number] Author: PHYLLIS MELENDEZ MD Service: ? Author Type: Physician Type: Progress Notes Filed: 06/13/2024 22:33 Note Text: ASSESSMENT/PLAN: - Nonallergic Rhinitis Start Nasacort 2 sprays each nostril once daily - Discussed medication dosage, usage, side effects, and goals of treatment in detail. - Follow-up in 1 yr/PRN - patient will return sooner should new symptoms or problems arise. Phyllis Melendez MD Allergy AND Immunology This is a consultation requested by Mandi Rico APRN, CNP for an allergy and immunology evaluation. My final recommendations will be communicated back to the requesting healthcare provider(s) by way of shared medical record or via [place] mail. Juan Ramon Bryson is a 44 year old male who presents with chronic nasal congestion. Also w/intermittent sneezing. Took zyrtec without relief. Used flonase x 10 days without relief. Used astelin for 1 week without relief. Denies a history of recurrent or chronic rhinosinusitis, nasal polyposis or nasal trauma. Endorses normal sense of taste and smell. COLLATERAL ALLERGY HISTORY: History of Recurrent or chronic sinusitis:No Nasal polyps:No Asthma:No Eczema or atopic dermatitis:No Urticaria:No Food allergy:No Systemic reaction to insect sting:No Allergy to penicillin antibiotics:No REVIEW OF SYSTEMS: All other review of systems negative except for those listed above. 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 azelastine 0.1% nasal spray Use 2 Sprays in each nostril daily at bedtime. cetirizine (ZYRTEC) 10 mg tablet Take 1 tablet by mouth once daily. fluticasone (FLONASE) 50 mcg/actuation nasal spray Use 2 Sprays in each nostril once daily. Rinse mouth after use. risperiDONE (RISPERDAL) 1 mg tablet atorvastatin (LIPITOR) 20 mg tablet 20 mg. ALLERGIES: Allergies As of Date: 06/11/2024 (No Known Allergies) Fully Assessed 05/14/2024 PAST SURGICAL HISTORY No date: UPPER ARM/ELBOW SURGERY UNLISTED; Right FAMILY HISTORY: Allergic rhinitis:no. Asthma: no. Eczema: no. Cystic fibrosis: no. Immunodeficiency: no. SOCIAL HISTORY: Employer And Job Title: None on file Years Of Education Completed: Not specified Marital Status: Single Social History Tobacco Use Smoking status: Never Smokeless tobacco: Never ENVIRONMENTAL HISTORY: Lives in a house Age of home: over 100 years Heating: gas Woodburning fireplace in the home: yes but never used Air conditioning: Window air conditioning Basement: Damp basement Meryl: Hardwood floor Dust mite controls: Dust mite controls are not in place. Pets in the home: 1 dogs Outdoor animals: There are no outdoor animals Tobacco smoke: No exposure in the home. Physical Exam: GENERAL APPEARANCE:Well appearing, alert, in no acute distress, well-hydrated, well nourished. HEENT: NCAT. EYES: conjunctiva and sclera normal. EARS: External ears normal. Canals clear. TM's normal. NOSE/SINUS: Nares normal. Septum midline. Mucosa normal. No drainage or sinus tenderness. THROAT: no erythema NECK:neck supple, no adenopathy HEART:RRR with normal S1 and S2 ,no murmurs, no gallops, no rubs LUNGS: clear to auscultation bilaterally, no wheezes, rales or rhonchi EXTREMITIES:Extremities normal, No deformities, No skin discoloration, and No edema SKIN: Skin color, texture, turgor normal. No rashes or lesions. ALLERGY SKIN TESTS: Completed on 06/11/2024: Negative to inhalant allergens on percutaneous testing [facility] 06-11-2024 History of Present illness Narrative ASSESSMENT/PLAN: - Nonallergic Rhinitis Start Nasacort 2 sprays each nostril once daily - Discussed medication dosage, usage, side effects, and goals of treatment in detail. - Follow-up in 1 yr/PRN - patient will return sooner should new symptoms or problems arise. Phyllis Melendez MD Allergy & Immunology This is a consultation requested by Mandi Rico APRN, CNP for an allergy and immunology evaluation. My final recommendations will be communicated back to the requesting healthcare provider(s) by way of shared medical record or via [place]. mail. Juan Ramon Bryson is a 44 year old male who presents with chronic nasal congestion. Also w/intermittent sneezing. Took zyrtec without relief. Used flonase x 10 days without relief. Used astelin for 1 week without relief. Denies a history of recurrent or chronic rhinosinusitis, nasal polyposis or nasal trauma. Endorses normal sense of taste and smell. COLLATERAL ALLERGY HISTORY: History of Recurrent or chronic sinusitis:No Nasal polyps:No Asthma:No Eczema or atopic dermatitis:No Urticaria:No Food allergy:No Systemic reaction to insect sting:No Allergy to penicillin antibiotics:No REVIEW OF SYSTEMS: All other review of systems negative except for those listed above. 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 azelastine 0.1% nasal spray Use 2 Sprays in each nostril daily at bedtime. cetirizine (ZYRTEC) 10 mg tablet Take 1 tablet by mouth once daily. fluticasone (FLONASE) 50 mcg/actuation nasal spray Use 2 Sprays in each nostril once daily. Rinse mouth after use. risperiDONE (RISPERDAL) 1 mg tablet atorvastatin (LIPITOR) 20 mg tablet 20 mg. ALLERGIES: Allergies As of Date: 06/11/2024 (No Known Allergies) Fully Assessed 05/14/2024 PAST SURGICAL HISTORY No date: UPPER ARM/ELBOW SURGERY UNLISTED; Right FAMILY HISTORY: Allergic rhinitis:no. Asthma: no. Eczema: no. Cystic fibrosis: no. Immunodeficiency: no. SOCIAL HISTORY: Employer And Job Title: None on file Years Of Education Completed: Not specified Marital Status: Single Social History Tobacco Use Smoking status: Never Smokeless tobacco: Never ENVIRONMENTAL HISTORY: Lives in a house Age of home: over 100 years Heating: gas Woodburning fireplace in the home: yes but never used Air conditioning: Window air conditioning Basement: Damp basement Meryl: Hardwood floor Dust mite controls: Dust mite controls are not in place. Pets in the home: 1 dogs Outdoor animals: There are no outdoor animals Tobacco smoke: No exposure in the home. Physical Exam: GENERAL APPEARANCE:Well appearing, alert, in no acute distress, well-hydrated, well nourished. HEENT: NCAT. EYES: conjunctiva and sclera normal. EARS: External ears normal. Canals clear. TM's normal. NOSE/SINUS: Nares normal. Septum midline. Mucosa normal. No drainage or sinus tenderness. THROAT: no erythema NECK:neck supple, no adenopathy HEART:RRR with normal S1 and S2 ,no murmurs, no gallops, no rubs LUNGS: clear to auscultation bilaterally, no wheezes, rales or rhonchi EXTREMITIES:Extremities normal, No deformities, No skin discoloration, and No edema SKIN: Skin color, texture, turgor normal. No rashes or lesions. ALLERGY SKIN TESTS: Completed on 06/11/2024: Negative to inhalant allergens on percutaneous testing documented in this encounter [facility] 05-14-2024 Note HNO ID: [id number] Author: MANDI RICO APRN.CODING DIRECTOR Service: ? Author Type: Nurse Practitioner Type: Progress Notes Filed: 05/14/2024 13:38 Note Text: This note was created using NoteWriter. Subjective Juan Ramon Bryson is a 43 year old male. 43 year old male with PMH hyperlipidemia and chronic rhinitis presents for nasal congestion Acute onset 6 months ago +nasal congestion (States has not been able to clear nose) Denies ear or eye complaints. Denies fever or chills Denies cough Denies SOB or dyspnea He was seen here on 03/07/24-dx seasonal rhinitis. Placed on Flonase and Zyrtec. Referred to ENT, He was evaluated on 05/09/[address] Obrien and his documentation reveals diagnosis chronic rhinitis Marichuy Was told to consider allergy batsheva Presents today with his father for not feeling any different States he is taking the Flonase, Zyrtec, and Astelin The history is provided by the patient. No chinese language professor was used. Nasal Congestion This is a recurrent problem. The current episode started more than 1 month ago. The problem is unchanged. There has been no fever. The fever has been present for 3 to 4 days. His pain is at a severity of 5/10. Associated symptoms include congestion, sinus pressure and sneezing. Pertinent negatives include no chills, coughing, diaphoresis, ear pain, headaches, hoarse voice, neck pain, shortness of breath, sore throat or swollen glands. Past treatments include nothing. The treatment provided no relief. 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 MEDICATIONS tetrabenazine (XENAZINE) 12.5 mg tablet Take 1 tablet by mouth every morning. azelastine 0.1% nasal spray Use 2 Sprays in each nostril daily at bedtime. cetirizine (ZYRTEC) 10 mg tablet Take 1 tablet by mouth once daily. fluticasone (FLONASE) 50 mcg/actuation nasal spray Use 2 Sprays in each nostril once daily. Rinse mouth after use. risperiDONE (RISPERDAL) 1 mg tablet atorvastatin (LIPITOR) 20 mg tablet 20 mg. FAMILY HISTORY Problem Relation Age of Onset other ([facility]) Mother Hypertension Father other ([facility]) Sister other ([facility]) Maternal Grandmother Social History Tobacco Use Smoking status: Never Smokeless tobacco: Never Review of Systems Constitutional: Negative for chills and diaphoresis. HENT: Positive for congestion, sinus pressure and sneezing. Negative for ear pain, hoarse voice and sore throat. Respiratory: Negative for cough and shortness of breath. Cardiovascular: Negative for chest pain, palpitations and leg swelling. Gastrointestinal: Negative for abdominal pain, diarrhea, nausea and vomiting. Musculoskeletal: Negative for back pain and neck pain. Skin: Negative for color change, pallor, rash and wound. Neurological: Negative for headaches. Hematological: Negative for adenopathy. Does not bruise/bleed easily. Psychiatric/Behavioral: Negative for agitation and behavioral problems. Objective BP 114/76 Pulse 71 Temp 36.3 ?C (97.4 ?F) Resp 18 Wt 103.7 kg (228 lb 9.9 oz) SpO2 97% BMI 32.80 kg/m? Physical Exam Vitals and nursing note reviewed. Constitutional: General: He is not in acute distress. Appearance: Normal appearance. He is not ill-appearing, toxic-appearing or diaphoretic. HENT: Head: Normocephalic and atraumatic. Right Ear: External ear normal. Left Ear: External ear normal. Nose: Nose normal. No congestion or rhinorrhea. Mouth/Throat: Mouth: Mucous membranes are moist. Pharynx: Oropharynx is clear. No oropharyngeal exudate or posterior oropharyngeal erythema. Eyes: General: Right eye: No discharge. Left eye: No discharge. Extraocular Movements: Extraocular movements intact. Conjunctiva/sclera: Conjunctivae normal. Pupils: Pupils are equal, round, and reactive to light. Cardiovascular: Rate and Rhythm: Normal rate and regular rhythm. Pulses: Normal pulses. Heart sounds: Normal heart sounds. No murmur heard. No friction rub. No gallop. Pulmonary: Effort: Pulmonary effort is normal. No respiratory distress. Breath sounds: Normal breath sounds. No stridor. No wheezing, rhonchi or rales. Chest: Chest wall: No tenderness. Abdominal: General: Abdomen is flat. There is no distension. Palpations: Abdomen is soft. There is no mass. Tenderness: There is no abdominal tenderness. There is no guarding or rebound. Hernia: No hernia is present. Musculoskeletal: General: No swelling, tenderness, deformity or signs of injury. Normal range of motion. Cervical back: Normal range of motion and neck supple. No rigidity or tenderness. Right lower leg: No edema. Left lower leg: No edema. Lymphadenopathy: Cervical: No cervical adenopathy. Skin: General: Skin is warm and dry. Capillary Refill: (more content not included)... [facility] 05-14-2024 History of Present illness Narrative This note was created using OberScharrerriter. Subjective Juan Ramon Bryson is a 43 year old male. 43 year old male with PMH hyperlipidemia and chronic rhinitis presents for nasal congestion Acute onset 6 months ago +nasal congestion (States has not been able to clear nose) Denies ear or eye complaints. Denies fever or chills Denies cough Denies SOB or dyspnea He was seen here on 03/07/24-dx seasonal rhinitis. Placed on Flonase and Zyrtec. Referred to ENT, He was evaluated on 05/09/[address] Obrien and his documentation reveals diagnosis chronic rhinitis Marichuy Was told to consider allergy batsheva Presents today with his father for not feeling any different States he is taking the Flonase, Zyrtec, and Astelin The history is provided by the patient. No chinese language professor was used. Nasal Congestion This is a recurrent problem. The current episode started more than 1 month ago. The problem is unchanged. There has been no fever. The fever has been present for 3 to 4 days. His pain is at a severity of 5/10. Associated symptoms include congestion, sinus pressure and sneezing. Pertinent negatives include no chills, coughing, diaphoresis, ear pain, headaches, hoarse voice, neck pain, shortness of breath, sore throat or swollen glands. Past treatments include nothing. The treatment provided no relief. 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 MEDICATIONS tetrabenazine (XENAZINE) 12.5 mg tablet Take 1 tablet by mouth every morning. azelastine 0.1% nasal spray Use 2 Sprays in each nostril daily at bedtime. cetirizine (ZYRTEC) 10 mg tablet Take 1 tablet by mouth once daily. fluticasone (FLONASE) 50 mcg/actuation nasal spray Use 2 Sprays in each nostril once daily. Rinse mouth after use. risperiDONE (RISPERDAL) 1 mg tablet atorvastatin (LIPITOR) 20 mg tablet 20 mg. FAMILY HISTORY Problem Relation Age of Onset other ([facility]) Mother Hypertension Father other ([facility]) Sister other ([facility]) Maternal Grandmother Social History Tobacco Use Smoking status: Never Smokeless tobacco: Never Review of Systems Constitutional: Negative for chills and diaphoresis. HENT: Positive for congestion, sinus pressure and sneezing. Negative for ear pain, hoarse voice and sore throat. Respiratory: Negative for cough and shortness of breath. Cardiovascular: Negative for chest pain, palpitations and leg swelling. Gastrointestinal: Negative for abdominal pain, diarrhea, nausea and vomiting. Musculoskeletal: Negative for back pain and neck pain. Skin: Negative for color change, pallor, rash and wound. Neurological: Negative for headaches. Hematological: Negative for adenopathy. Does not bruise/bleed easily. Psychiatric/Behavioral: Negative for agitation and behavioral problems. Objective BP 114/76 Pulse 71 Temp 36.3 C (97.4 F) Resp 18 Wt 103.7 kg (228 lb 9.9 oz) SpO2 97% BMI 32.80 kg/m Physical Exam Vitals and nursing note reviewed. Constitutional: General: He is not in acute distress. Appearance: Normal appearance. He is not ill-appearing, toxic-appearing or diaphoretic. HENT: Head: Normocephalic and atraumatic. Right Ear: External ear normal. Left Ear: External ear normal. Nose: Nose normal. No congestion or rhinorrhea. Mouth/Throat: Mouth: Mucous membranes are moist. Pharynx: Oropharynx is clear. No oropharyngeal exudate or posterior oropharyngeal erythema. Eyes: General: Right eye: No discharge. Left eye: No discharge. Extraocular Movements: Extraocular movements intact. Conjunctiva/sclera: Conjunctivae normal. Pupils: Pupils are equal, round, and reactive to light. Cardiovascular: Rate and Rhythm: Normal rate and regular rhythm. Pulses: Normal pulses. Heart sounds: Normal heart sounds. No murmur heard. No friction rub. No gallop. Pulmonary: Effort: Pulmonary effort is normal. No respiratory distress. Breath sounds: Normal breath sounds. No stridor. No wheezing, rhonchi or rales. Chest: Chest wall: No tenderness. Abdominal: General: Abdomen is flat. There is no distension. Palpations: Abdomen is soft. There is no mass. Tenderness: There is no abdominal tenderness. There is no guarding or rebound. Hernia: No hernia is present. Musculoskeletal: General: No swelling, tenderness, deformity or signs of injury. Normal range of motion. Cervical back: Normal range of motion and neck supple. No rigidity or tenderness. Right lower leg: No edema. Left lower leg: No edema. Lymphadenopathy: Cervical: No cervical adenopathy. Skin: General: Skin is warm and dry. Capillary Refill: Capillary refill takes less than 2 seconds. Coloration: Skin is not jaundiced or pale. Findings: No bruising, lesion or rash. Neurological: General: No focal deficit present. Mental Status: He is alert and oriented to person, place, and time. Cranial Nerves: No cranial nerve deficit. Sensory: No sensory deficit. Motor: No weakness. Coordination: Coordination normal. Gait: Gait normal. Deep Tendon Reflexes: Reflexes normal. Psychiatric: Mood and Affect: Mood normal. Behavior: Behavior normal. Thought Content: Thought content normal. Assessment and Plan ASSESSMENT/PLAN: 1. Chronic rhinitis - ICD9: 472.0, ICD10: J31.0 Patient endorses that this has been ongoing for 6 months He was seen here on 03/07/24-dx seasonal rhinitis. Placed on Flonase and Zyrtec. Referred to ENT, He was evaluated on 05/09/[address] Obrien and his documentation reveals diagnosis chronic rhinitis Marichuy Was told to consider allergy eval Presents today with his father for not feeling any different States he is taking the Flonase, Zyrtec, and Astelin - CONSULT TO ALLERGY/IMMUNOLOGY-appt made here today RX Augmentin provided to trial given time of symptoms. Mandi Rico APRN.ROSARIO documented in this encounter [facility] 05-09-2024 Note HNO ID: [id number] Author: WALESKA OBRIEN MD Service: ? Author Type: Physician Type: Progress Notes Filed: 05/09/2024 12:12 Note Text: PABLO Juan Ramon Bryson is a 43 year old male who presents with congestion. Patient complains of nasal congestion. Patient has tried Flonase did not seem to help patient has no other nasal symptoms. ROS General Weight loss: No Fatigue: No Night sweats:No Cardiac Chest pain:No Fast heart rate:No Swelling in the feet:No Respiratory Short of breath:No Cough:No Wheezing:No Gastrointestinal Nausea:No Vomiting:No Indigestion:No Past medical history, family history, and social history reviewed. PE There were no vitals taken for this visit. General: Patient is awake, alert, NAD. Voice is normal. Skin: normal Eyes: Extraocular motion and Gaze is normal. Ears: Right external auditory canal is normal. TMJ: normal. Right tympanic membranes normal. Left external auditory canal is normal. Left tympanic membrane normal. Nose: Septum is normal. Turbinates are normal. Nasopharynx:normal Oral Cavity/Oropharynx: Lips normal Dentition normal Tongue normal. Tonsils normal. Palate and uvula normal. Pharynx posterior normal Hypopharynx: Base of tongue normal Pyriform sinus normal. Larynx: Vocal cords normal. Epiglottis normal. Post cricoid normal. Salivary glands: Parotid normal. Submandibular and sublingual normal. Thyroid: normal. Lymphatic/Neck: Lymph nodes normal. Neurologic: Facial nerve normal. ASSESSMENT/PLAN: 1. Chronic rhinitis - ICD9: 472.0, ICD10: J31.0 Astelin consider allergy eval Waleska Obrien MD Findings will be communicated to the referring physician via mail or electronic medical record. [facility] 05-09-2024 History of Present illness Narrative HPI Juan Ramon Bryson is a 43 year old male who presents with congestion. Patient complains of nasal congestion. Patient has tried Flonase did not seem to help patient has no other nasal symptoms. ROS General Weight loss: No Fatigue: No Night sweats:No Cardiac Chest pain:No Fast heart rate:No Swelling in the feet:No Respiratory Short of breath:No Cough:No Wheezing:No Gastrointestinal Nausea:No Vomiting:No Indigestion:No Past medical history, family history, and social history reviewed. PE There were no vitals taken for this visit. General: Patient is awake, alert, NAD. Voice is normal. Skin: normal Eyes: Extraocular motion and Gaze is normal. Ears: Right external auditory canal is normal. TMJ: normal. Right tympanic membranes normal. Left external auditory canal is normal. Left tympanic membrane normal. Nose: Septum is normal. Turbinates are normal. Nasopharynx:normal Oral Cavity/Oropharynx: Lips normal Dentition normal Tongue normal. Tonsils normal. Palate and uvula normal. Pharynx posterior normal Hypopharynx: Base of tongue normal Pyriform sinus normal. Larynx: Vocal cords normal. Epiglottis normal. Post cricoid normal. Salivary glands: Parotid normal. Submandibular and sublingual normal. Thyroid: normal. Lymphatic/Neck: Lymph nodes normal. Neurologic: Facial nerve normal. ASSESSMENT/PLAN: 1. Chronic rhinitis - ICD9: 472.0, ICD10: J31.0 Astelin consider allergy eval Waleska Obrien MD Findings will be communicated to the referring physician via mail or electronic medical record. documented in this encounter [facility] 03-07-2024 History of Present illness Narrative Subjective HPI HPI Juan Ramon Bryson is a 43 year old male who presents today for CC of sneezing, nasal congestion. This started 1 month ago. Has tried otc medication without relief. Symptoms are worsened by nothing specivid. Risk factors. Requesting to see speeder frame tender today. Hx of elizabeth's Disease. 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 MEDICATIONS risperiDONE (RISPERDAL) 1 mg tablet atorvastatin (LIPITOR) 20 mg tablet 20 mg. cetirizine (ZYRTEC) 10 mg tablet Take 1 tablet by mouth once daily. fluticasone (FLONASE) 50 mcg/actuation nasal spray Use 2 Sprays in each nostril once daily. Rinse mouth after use. FAMILY HISTORY Problem Relation Age of Onset other ([facility]) Mother Hypertension Father other ([employer]) Sister other ([facility]) Maternal Grandmother Social History Tobacco Use Smoking status: Never Smokeless tobacco: Never ROS Objective Blood pressure 130/72, pulse 62, temperature 36.2 C (97.1 F), resp. rate 16, weight 104.5 kg (230 lb 6.1 oz), SpO2 97%. Physical Exam Constitutional: General: He is not in acute distress. Appearance: He is not toxic-appearing or diaphoretic. HENT: Head: Normocephalic and atraumatic. Nose: Nose normal. Mouth/Throat: Lips: Oasis. Mouth: Mucous membranes are moist. Cardiovascular: Rate and Rhythm: Normal rate and regular rhythm. Heart sounds: Normal heart sounds, S1 normal and S2 normal. Pulmonary: Effort: Pulmonary effort is normal. Breath sounds: Normal breath sounds. Lymphadenopathy: Cervical: No cervical adenopathy. Right cervical: No superficial cervical adenopathy. Left cervical: No superficial cervical adenopathy. Neurological: Mental Status: He is alert and oriented to person, place, and time. Gait: Gait is intact. ASSESSMENT/PLAN: 1. Seasonal allergic rhinitis, unspecified trigger - ICD9: 477.9, ICD10: J30.2 (primary diagnosis) -use medication as prescribed -follow up if symptoms persist, worsen, change - CETIRIZINE 10 MG TABLET - FLUTICASONE PROPIONATE 50 MCG/ACTUATION NASAL SPRAY,SUSPENSION 2. Sneezing - ICD9: 784.99, ICD10: R06.7 - CONSULT TO ENT Ananya Fernandez APRN.CODING DIRECTOR documented in this encounter [facility] 03-07-2024 Note HNO ID: [id number] Author: ANANYA FERNANDEZ APRN.CODING DIRECTOR Service: ? Author Type: Nurse Practitioner Type: Progress Notes Filed: 03/07/2024 15:46 Note Text: Subjective HPI HPI Juan Ramon Bryson is a 43 year old male who presents today for CC of sneezing, nasal congestion. This started 1 month ago. Has tried otc medication without relief. Symptoms are worsened by nothing specivid. Risk factors. Requesting to see speeder frame tender today. Hx of elizabeth's Disease. 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 MEDICATIONS risperiDONE (RISPERDAL) 1 mg tablet atorvastatin (LIPITOR) 20 mg tablet 20 mg. cetirizine (ZYRTEC) 10 mg tablet Take 1 tablet by mouth once daily. fluticasone (FLONASE) 50 mcg/actuation nasal spray Use 2 Sprays in each nostril once daily. Rinse mouth after use. FAMILY HISTORY Problem Relation Age of Onset other ([facility]) Mother Hypertension Father other ([facility]) Sister other ([facility]) Maternal Grandmother Social History Tobacco Use Smoking status: Never Smokeless tobacco: Never ROS Objective Blood pressure 130/72, pulse 62, temperature 36.2 ?C (97.1 ?F), resp. rate 16, weight 104.5 kg (230 lb 6.1 oz), SpO2 97%. Physical Exam Constitutional: General: He is not in acute distress. Appearance: He is not toxic-appearing or diaphoretic. HENT: Head: Normocephalic and atraumatic. Nose: Nose normal. Mouth/Throat: Lips: Oasis. Mouth: Mucous membranes are moist. Cardiovascular: Rate and Rhythm: Normal rate and regular rhythm. Heart sounds: Normal heart sounds, S1 normal and S2 normal. Pulmonary: Effort: Pulmonary effort is normal. Breath sounds: Normal breath sounds. Lymphadenopathy: Cervical: No cervical adenopathy. Right cervical: No superficial cervical adenopathy. Left cervical: No superficial cervical adenopathy. Neurological: Mental Status: He is alert and oriented to person, place, and time. Gait: Gait is intact. ASSESSMENT/PLAN: 1. Seasonal allergic rhinitis, unspecified trigger - ICD9: 477.9, ICD10: J30.2 (primary diagnosis) -use medication as prescribed -follow up if symptoms persist, worsen, change - CETIRIZINE 10 MG TABLET - FLUTICASONE PROPIONATE 50 MCG/ACTUATION NASAL SPRAY,SUSPENSION 2. Sneezing - ICD9: 784.99, ICD10: R06.7 - CONSULT TO ENT Ananya Fernandez APRN.[facility] 10-25-2023 Note HNO ID: [id number] Author: JACY JACQUES PA Service: ? Author Type: Physician Dock Associate Type: Progress Notes Filed: 10/25/2023 13:05 Note Text: This note was created using [employer]Scharrer[employer]. Subjective Ananya Bryson is a 43 year old male. HPI 43-year-old male presents for nasal congestion, runny nose for a month. Patient was seen here back in September for similar symptoms. He was treated with doxycycline at that time. Symptoms improved for short period and then returned. He has constant runny nose for the past month and occasional congestion and sinus pressure. No headaches. No cough. No fevers. No sore throat. No other complaint. 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 MEDICATIONS risperiDONE (RISPERDAL) 1 mg tablet atorvastatin (LIPITOR) 20 mg tablet 20 mg. fluticasone (FLONASE) 50 mcg/actuation nasal spray Use 2 Sprays in each nostril once daily. Rinse mouth after use. amoxicillin-clavulanate potassium (AUGMENTIN) 875-125 mg per tablet Take 1 tablet by mouth two times a day for 7 days. fluticasone (FLONASE) 50 mcg/actuation nasal spray Use 2 Sprays in each nostril once daily. Rinse mouth after use. FAMILY HISTORY Problem Relation Age of Onset other ([facility]) Mother Hypertension Father other ([facility]) Sister other ([facility]) Maternal Grandmother Social History Tobacco Use Smoking status: Never Smokeless tobacco: Never Review of Systems Constitutional: Negative for chills and fever. HENT: Positive for congestion, rhinorrhea and sinus pressure. Negative for sore throat. Respiratory: Negative for cough and shortness of breath. Gastrointestinal: Negative for diarrhea and vomiting. Objective BP 122/85 Pulse 65 Temp 36.4 ?C (97.6 ?F) Resp 18 Wt 114.3 kg (252 lb) SpO2 100% BMI 36.16 kg/m? Physical Exam Vitals and nursing note reviewed. Constitutional: General: He is not in acute distress. Appearance: Normal appearance. He is not toxic-appearing. HENT: Right Ear: Tympanic membrane and ear canal normal. Left Ear: Tympanic membrane and ear canal normal. Nose: Mucosal edema and rhinorrhea present. Mouth/Throat: Mouth: Mucous membranes are moist. Eyes: Conjunctiva/sclera: Conjunctivae normal. Cardiovascular: Rate and Rhythm: Normal rate and regular rhythm. Pulmonary: Effort: Pulmonary effort is normal. Breath sounds: Normal breath sounds. Skin: General: Skin is warm and dry. Neurological: Mental Status: He is alert. Assessment and Plan ASSESSMENT/PLAN: 1. Bacterial sinusitis - ICD9: 473.9, 041.9, ICD10: J32.9, B96.89 -Previously treated with doxycycline. Symptoms return. Will treat with Augmentin for 1 week. -Rx for Flonase. Possibly an allergy component due to return of symptoms. -Recommend if no improvement with Augmentin, he needs to follow-up with PCP. - Supportive care with plenty of fluids, rest, and analgesia prn. Diagnosis and treatment plan were discussed and questions were answered to the patient's satisfaction. Pt acknowledged understanding of concepts and follow up plan. Specific signs and symptoms that would indicate the need for higher level of care were discussed in detail warranting prompt ER evaluation. SVETA Lala [facility] 09-15-2023 History of Present illness Narrative Subjective HPI Nontoxic-appearing male presents urgent care chief complaint difficulty with breathing due to nasal congestion. States this has been present for about 1 month. Was seen here diagnosed with bacterial sinusitis. Placed on Augmentin for 5 days. Symptoms did improve and then returned again. Denies any significant pain. Overall feels well. Does have some sinus pressure with changing of positions. Denies any fever body aches chills productive cough chest pain shortness of breath pleuritic pain hemoptysis nausea vomiting abdominal pain change in bowel or bladder habits. Past medical history prescription medication use and allergies reviewed. .Patient presents with: Breathing Problem: X 1 mo History reviewed. No pertinent past medical history. History reviewed. No pertinent surgical history. ALLERGIES Patient has no known allergies. MEDICATIONS risperiDONE (RISPERDAL) 1 mg tablet atorvastatin (LIPITOR) 20 mg tablet 20 mg. History reviewed. No pertinent family history. Social History Tobacco Use Smoking status: Never Smokeless tobacco: Never BP 120/82 Pulse 85 Temp 36.7 C (98 F) Resp 16 Wt 113.4 kg (250 lb) SpO2 99% Review of Systems Constitutional: Negative for chills, fever and malaise/fatigue. HENT: Positive for congestion and sinus pain. Negative for ear discharge, ear pain and sore throat. Eyes: Negative for blurred vision, pain, discharge and redness. Respiratory: Negative for cough, hemoptysis, sputum production, shortness of breath, wheezing and stridor. Cardiovascular: Negative for chest pain. Gastrointestinal: Negative for abdominal pain, diarrhea, nausea and vomiting. Musculoskeletal: Negative for myalgias. Skin: Negative for itching and rash. Neurological: Negative for dizziness and headaches. Objective Physical Exam Constitutional: General: He is not in acute distress. Appearance: He is not diaphoretic. HENT: Head: Normocephalic. Jaw: No trismus, tenderness, swelling or pain on movement. Right Ear: Tympanic membrane, ear canal and external ear normal. Left Ear: Tympanic membrane, ear canal and external ear normal. Nose: Congestion present. Right Sinus: Maxillary sinus tenderness present. Left Sinus: Maxillary sinus tenderness present. Mouth/Throat: Mouth: Mucous membranes are moist. Pharynx: Oropharynx is clear. Uvula midline. No pharyngeal swelling, oropharyngeal exudate, posterior oropharyngeal erythema or uvula swelling. Eyes: Conjunctiva/sclera: Conjunctivae normal. Pupils: Pupils are equal, round, and reactive to light. Cardiovascular: Rate and Rhythm: Normal rate and regular rhythm. Heart sounds: Normal heart sounds. Pulmonary: Effort: Pulmonary effort is normal. No tachypnea, accessory muscle usage or respiratory distress. Breath sounds: Normal breath sounds. No stridor. No wheezing, rhonchi or rales. Abdominal: General: There is no distension. Palpations: Abdomen is soft. Tenderness: There is no abdominal tenderness. There is no guarding or rebound. Musculoskeletal: Cervical back: Normal range of motion and neck supple. No edema, erythema, rigidity or tenderness. No pain with movement. Normal range of motion. Lymphadenopathy: Cervical: No cervical adenopathy. Skin: General: Skin is warm and dry. Neurological: Mental Status: He is alert and oriented to person, place, and time. ASSESSMENT/PLAN: 1. Bacterial sinusitis - ICD9: 473.9, 041.9, ICD10: J32.9, B96.89 Diagnosed with bacterial sinusitis. Recently was seen and placed on Augmentin symptoms did improve and then returned again. Will switch to doxycycline. Use Flonase and Claritin. Follow-up with ENT 3 to 5 days symptoms are not improving. Patient was educated on supportive therapies. Patient will follow up with primary care provider as needed. Patient was instructed to immediately proceed to emergency room for any new, worsening, or symptoms lasting longer than anticipated. The patient's clinical presentation is otherwise unremarkable at this time. Based on exam and clinical finding, the patient is stable for discharge. Plan of care was discussed with patient. Patient verbalizes understanding and agrees to plan of care. This note was generated using [employer] software. It may contain errors in wording, punctuation, or spelling. Himanshu Bird APRN.CODING DIRECTOR documented in this encounter [facility] 09-05-2023 History of Present illness Narrative Subjective Cough Pertinent negatives include no chest pain, no chills, no ear pain, no sore throat, no myalgias and no shortness of breath. Ananya Bryson is a 43 year old male who presents with a cough and runny nose for the past month. He has been using OTC severe flu and cold medication. He has not had a fever. No known recent sick contacts. Review of Systems Constitutional: Negative for chills and fever. HENT: Positive for congestion. Negative for ear pain and sore throat. Respiratory: Positive for cough. Negative for shortness of breath. Cardiovascular: Negative for chest pain. Musculoskeletal: Negative for myalgias. BP 128/78 Pulse 72 Temp 36.7 C (98 F) Resp 16 Wt 112.5 kg (248 lb) SpO2 98% No past medical history on file. No past surgical history on file. ALLERGIES Patient has no allergy information on record. MEDICATIONS amoxicillin-clavulanate potassium (AUGMENTIN) 875-125 mg per tablet Take 1 tablet by mouth two times a day for 5 days. No family history on file. Objective Physical Exam Vitals and nursing note reviewed. Constitutional: General: He is not in acute distress. Appearance: Normal appearance. He is not ill-appearing. HENT: Right Ear: Tympanic membrane, ear canal and external ear normal. Left Ear: Tympanic membrane, ear canal and external ear normal. Nose: Nose normal. No mucosal edema, congestion or rhinorrhea. Mouth/Throat: Pharynx: Uvula midline. No oropharyngeal exudate or posterior oropharyngeal erythema. Cardiovascular: Rate and Rhythm: Normal rate and regular rhythm. Heart sounds: Normal heart sounds. Pulmonary: Effort: Pulmonary effort is normal. No respiratory distress. Breath sounds: Normal breath sounds. No wheezing or rales. Musculoskeletal: Cervical back: Neck supple. Lymphadenopathy: Cervical: No cervical adenopathy. Skin: General: Skin is warm and dry. Findings: No erythema or rash. Neurological: Mental Status: He is alert. ASSESSMENT/PLAN: 1. Bacterial sinusitis - ICD9: 473.9, 041.9, ICD10: J32.9, B96.89 - Will begin treatment with as per antibiotic as written, see orders - Supportive care with plenty of fluids, rest, and analgesia prn. - AMOXICILLIN 875 MG-POTASSIUM CLAVULANATE 125 MG TABLET - Follow-up with your PCP in 3-5 days if symptoms have not improved or sooner if symptoms worsen - Discussed red flags and need for immediate medical evaluation if any occur. - Discussed supportive care treatment with fluids, rest and analgesia. - Discussed expected course of illness Maddison Zaragoza APRN.ROSARIO documented in this encounter [facility] 09-05-2023 Instructions Maddison Zaragoza APRN.CNP - 09/05/2023 11:18 AM EST Images from the original note were not included. ASSESSMENT/PLAN: 1. Bacterial sinusitis - ICD9: 473.9, 041.9, ICD10: J32.9, B96.89 - Will begin treatment with as per antibiotic as written, see orders - Supportive care with plenty of fluids, rest, and analgesia prn. - AMOXICILLIN 875 MG-POTASSIUM CLAVULANATE 125 MG TABLET - patient wishes to establish care with primary care provider-prefers Dr. Payan. - Follow-up with your PCP in 3-5 days if symptoms have not improved or sooner if symptoms worsen - Discussed red flags and need for immediate medical evaluation if any occur. - Discussed supportive care treatment with fluids, rest and analgesia. - Discussed expected course of illness Maddison Zaragoza APRN.CNP Adult Sinusitis Patient Education What is Sinusitis? Sinusitis [elhm-pfm-nmpp-tis] is inflammation of the sinuses or swelling of the lining of the sinus cavity or nose. During an infection the sinuses become blocked with fluid causing swelling of the lining of the sinuses. Symptoms: (viral and bacterial infections) Stuffy nose Runny nose Postnasal drip Fever Toothache Headache Tiredness Cough Sore throat Face and head pressure and or pain Common causes: 98% of sinus infections are viral caused by viruses. Risk Factors of Sinusitis Include: Allergies, air pollution, indoor humidity and outdoor temperature changes, andstructural changes in the nose may contribute to sinus pain, pressure and congestion. When to get help? Temperature greater than 100.4 F Symptoms lasting more than 10 days or worsening symptoms greater than 7-10 days. If you do not improve or worsen after a course of antibiotics, you should be re-examined. Diagnosis and Treatment: Your healthcare provider will ask a number of questions about your symptoms and how long they have occurred. If symptoms of sinusitis persist greater than 10 days, it is possible you have a bacterial sinus infection and an antibiotic is prescribed. If it is viral, antibiotics will not help. You may be instructed to take izuc-nel-ocqymoq medications for symptoms. including fever reducers acetaminophen or ibuprofen, nasal saline spray, cough and cold preparations and decongestants as prescribed by the physician, nurse practitioner or physician social research assistant. Self-Care and Prevention: Rest Fluids for hydration Good hand washing Humidifier Avoid smoking and exposure to second hand smoke Avoid sick contacts documented in this encounter [facility] Evaluation note No assessment inform ation available [facility] Work Phone: Evaluation note Diagnosis Bacterial sinusitis- Primary Unspecified sinusitis (chronic) [facility] Diagnosis Bacterial sinusitis- Primary Unspecified sinusitis (chronic) [facility] Diagnosis Seasonal allergic rhinitis, unspecified trigger- Primary Sneezing Other symptoms involving head and neck [facility] Diagnosis Chronic rhinitis- Primary [facility] Diagnosis Chronic rhinitis- Primary [facility] Diagnosis Nonallergic rhinitis- Primary Chronic rhinitis documented in this encounter [facility] note* Diagnosis Sinus congestion- Primary Other diseases of nasal cavity and sinuses [facility] Diagnosis Chronic rhinitis- Primary [facility] Diagnosis Mixed hyperlipidemia- Primary Elizabeth's disease (HCC) Elizabeth's chorea Nasal congestion Other diseases of nasal cavity and sinuses [facility] Diagnosis Maxillary sinusitis, unspecified chronicity- Primary [facility] Diagnosis Chronic rhinitis- Primary [facility] Diagnosis Wellness examination- Primary Mixed hyperlipidemia Elizabeth's disease (HCC) Elizabeth's chorea documented in this encounter [facility] Instructions * Patient Instructions - Brandy Maki PA-C - 08/26/2017 7:00 PM EST Advised to take antibiotic as directed and finish course. Advised to continue warm compress and apply topical neosporin or triple antibiotic. Advised to alternate between Ibuprofen and Tylenol for the pain. Follow up with PCP if symptoms persist or worsen. Skin Abscess: Care Instructions Your Care Instructions A skin abscess is a bacterial infection that forms a pocket of pus. A boil is a kind of skin abscess. The doctor may have cut an opening in the abscess so that the pus can drain out. You may have gauze in the cut so that the abscess will stay open and keep draining. You may need antibiotics. You will need to follow up with your doctor to make sure the infection has gone away. The doctor has checked you carefully, but problems can develop later. If you notice any problems ornew symptoms, get medical treatment right away. Follow-up care is a rea part of your treatment and safety. Be sure to make and go to all appointments, and call your doctor if you are having problems. It's also a good idea to know your test resultsand keep a list of the medicines you take. How can you care for yourself at home? Apply warm and dry compresses, a heating pad set on low, or a hot water bottle 3 or 4 times a day for pain. Keep a cloth between the heat source and your skin. If your doctor prescribed antibiotics, take them as directed. Do not stop taking them just because you feel better. You need to take the full course of antibiotics. Take pain medicines exactly as directed. If the doctor gave you a prescription medicine for pain, take it as prescribed. If you are not taking a prescription pain medicine, ask your doctor if you can take an xlji-nxm-zkmrxxq medicine. Keep your bandage clean and dry. Change the bandage whenever it gets wet or dirty, or at least one time a day. If the abscess was packed with gauze: Keep follow-up appointments to have the gauze changed or removed. If the doctor instructed you to remove the gauze, gently pull out all of the gauze when your doctor tells you to. After the gauze is removed, soak the area in warm water for 15 to 20 minutes 2 times a day, until the wound closes. When should you call for help? Call your doctor now or seek immediate medical care if: You have signs of worsening infection, such as: Increased pain, swelling, warmth, or redness. Red streaks leading from the infected skin. Pus draining from the wound. A fever. Watch closely for changes in your health, and be sure to contact your doctor if: You do not get better as expected. Where can you learn more? Log into your personal health record on https://Captiot.[employer] and enter D633 in the Education box to learn more about Skin Abscess: Care Instructions. Current as of: July 20, 2016 Content Version: 11.2 5400-1699 [employer]. Care instructions adapted under license by your healthcare professional. If you have questions about a medical condition or this instruction, always ask your healthcare professional. [employer] disclaims any warranty or liability for your use of this information. in this encounter* Patient Instructions* Monica Lam, DO - 11/25/2020 8:08 PM EST And liberally throughout the day. Duster shoes with athlete's foot powder also.Keep feet clean and dry as much as possible. Use athlete's foot powder Athlete's Foot: Care Instructions Your Care Instructions Athlete's foot is an itchy rash on the foot caused by an infection with a fungus. You can get it bygoing barefoot in wet public areas, such as swimming pools or locker rooms. Many times there is no clear reason why you get athlete's foot. You can easily treat athlete's foot by putting medicine on your feet for 1 to 6 weeks. In some cases, a doctor may prescribe pills to kill the fungus. Follow-up care is a rea part of your treatment and safety. Be sure to make and go to all appointments, and call your doctor if you are having problems. It's also a good idea to know your test resultsand keep a list of the medicines you take. How can you care for yourself at home? Your doctor may suggest an over-the counter lotion or spray or may prescribe a medicine. Take your medicines exactly as prescribed. Call your doctor if you think you are having a problem with your medicine. Keep your feet clean and dry. When you get dressed, put your socks on before your underwear. This can prevent the fungus from spreading from your feet to your groin. To prevent athlete's foot Wear flip-flops or other shower sandals in public locker rooms and showers and by the pool. Dry between your toes after swimming or bathing. Wear leather shoes or sandals, which let air get to your feet. Change your socks as needed so your feet stay as dry as possible. Use antifungal powder on your feet. When should you call for help? Watch closely for changes in your health, and be sure to contact your doctor if: You do not get better as expected. Where can you learn more? Log into your personal health record on https://MyChart.[employer] and enter M498 in the Education box to learn more about Athlete's Foot: Care Instructions. Current as of: April 08, 2020 Content Version: 12.7 6702-2548 [employer]. Care instructions adapted under license by your healthcare professional. If you have questions about a medical condition or this instruction, always ask your healthcare professional. [employer] disclaims any warranty or liability for your use of this information. documented in this encounter Assessments Diagnosis Cellulitis and abscess of le g - Primary Cellulitis and abscess of leg, except foot Diagnosis Fall, initial encounter- Primary Pain of right upper extremity Multiple abrasions Right elbow pain Pain in joint, upper arm Acute pain of right shoulder Effusion of right elbow Diagnosis Tinea pedis of both feet- Primary Discharge Instructions * Instructions* Leonie Peacock, CODING DIRECTOR - 06/12/2020 Please wear the Miguel wrap and sling for comfort. Continue to wash your wound daily with soap and water. Apply a thin layer Neosporin. Follow-up with your primary care physician next of appointment forreevaluation. That should be in about a week. Watch for signs of infection on your elbow which would include redness, swelling or any drainage. You do have a elbow effusion she may apply ice take Tylenol ibuprofen as needed. * Attachments The following attachments cannot be sent through Care Everywhere. 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 Blisters on both toes. x1 month SUBJECTIVE 40 y.o. male presents Foot Swelling (bilateral feet odor. Blisters on both toes. x1 month) 40-year-old white male nondiabetic. Has been having a 1 month history of bilateral feet swelling with odor and blistering between the toes. No fevers or chills. No discharge or drainage. Started after he wore a frozen pair of shoes for a day. No other injuries. No new products. No change of shoesor laundry detergent. Has been using zqio-yqt-uzdfowi athlete's foot powder without any improvement. MEDICAL ISSUES Past Medical History: Diagnosis Date Philo's disease (HCC) There is no problem list on file for this patient. SOCIAL HISTORY Social History Socioeconomic History Marital status: Single Spouse name: Not on file Number of children: Not on file Years of education: Not on file Highest education level: Not on file Occupational History Not on file Social Needs Financial resource strain: Not on file Food insecurity Worry: Not on file Inability: Not on file Transportation needs Medical: Not on file Non-medical: Not on file Tobacco Use Smoking status: Never Smoker Smokeless tobacco: Never Used Substance and Sexual Activity Alcohol use: Never Frequency: Never Drug use: Never Sexual activity: Not on file Lifestyle Physical activity Days per week: Not on file Minutes per session: Not on file Stress: Not on file Relationships Social connections Talks on phone: Not on file Gets together: Not on file Attends sabianist service: Not on file Active member of club or organization: Not on file Attends meetings of clubs or organizations: Not on file Relationship status: Not on file Other Topics Concern Not on file Social History Narrative Not on file FAMILY HISTORY No family history on file. REVIEW OF SYSTEMS Review of Systems Constitutional: Negative for activity change, chills and fever. HENT: Negative for congestion and sore throat. Eyes: Negative for discharge. Respiratory: Negative for cough and shortness of breath. Cardiovascular: Negative for chest pain. Gastrointestinal: Negative for abdominal pain, nausea and vomiting. Genitourinary: Negative for dysuria and frequency. Musculoskeletal: Negative for back pain. Skin: Positive for rash. Neurological: Negative for dizziness and headaches. Psychiatric/Behavioral: Negative for behavioral problems. All other systems reviewed and are negative. MEDICATIONS PRIOR TO VISIT No current outpatient medications on file prior to visit. No current facility-administered medications on file prior to visit. ALLERGIES/INTOLERANCES No Known Allergies OBJECTIVE BP (!) 147/80 Pulse 79 Temp 97.7 F (36.5 C) Resp 15 Wt 95.3 kg (210 lb) SpO2 99% BMI 30.13 kg/m Physical Exam Vitals signs and nursing note reviewed. Constitutional: Appearance: Normal appearance. HENT: Head: Normocephalic and atraumatic. Nose: Nose normal. Mouth/Throat: Mouth: Mucous membranes are moist. Eyes: General: No scleral icterus. Pupils: Pupils are equal, round, and reactive to light. Cardiovascular: Rate and Rhythm: Normal rate and regular rhythm. Pulmonary: Effort: Pulmonary effort is normal. Breath sounds: Normal breath sounds. Abdominal: General: Abdomen is flat. Tenderness: There is no abdominal tenderness. Musculoskeletal: Normal range of motion. General: No signs of injury. Skin: General: Skin is warm and dry. Capillary Refill: Capillary refill takes less than 2 seconds. Findings: No rash. Comments: Scaling rash between the toes of bilateral feet especially on the medial surface of the big toes bilaterally. These areas fluoresce with Pulido lamp. No discharge or drainage. Neurovascular function of the feet appeared good bilaterally good cap refill good pulses. No evidence of any cellulitis. Neurological: Mental Status: He is alert. Psychiatric: Mood and Affect: Mood normal. PROCEDURE Procedures Results No results found for this or any previous visit (from the past 168 hour(s)). No orders to display ASSESSMENT/PLAN (expressed as patient instructions): 1. Tinea pedis of both feet Return in about 10 days (around 12/05/2020), or your doctor. ADDITIONAL CLINICAL COMMENTS Patient with bilateral athlete's foot. Will encourage patient to keep the areas clean and dry as much as possible. Continue using athlete's foot powder liberally but also given prescription for Diflucan 150 mg 1 a week for the next 2 to 4 weeks. Return precautions given. Discussed over the counter medications for symptomatic management and side effects of medications. Recommended taking all medications with food and to stop medications if they develop any signs of anallergic reaction. Educated patient and/or guardian about signs and symptoms that would warrant further immediate evaluation. Recommended that they should return to urgent care, make an appointment with their family physician, or go to the emergency room if symptoms persist or get acutely worse. Recommended follow upwithin the next week with their PCP or to get established with a PCP soon in order to follow up appropriately. ORDERS PLACED THIS VISIT No orders of the defined types were placed in this encounter. MEDICATION LIST AT END OF VISIT Current Outpatient Medications Medication Sig Dispense Refill fluconazole (DIFLUCAN) 150 MG tablet Take 1 (one) tablet (150 mg total) by mouth once Take 1 tab bymouth now. Then, in 7 days you may take the other tablet if you still have signs of a yeast infection. for 1 dose . 2 tablet 2 No current facility-administered medications for this visit. documented in this encounter Chief Complaint and Reason for Visit Chief Complaint MH Reason for Referral Specialty Diagnoses / Procedures Referred By Johnathan morton Referred To Contact Diagnoses Bacterial sinusitis Procedures ESTABLISH WITH PRIMARY CARE NEW PATIENT OFFICE/OUTPATIENT [facility] 60-74 MINUTES Maddison Zaragoza APRN.CODING DIRECTOR [address] [place] [address] Referral ID Status Reason Start Date Expiration Date Visits Requested Visits Authorized [id number] Pending Review PCP Requested Referral 3 09/04/2024 1 1 Specialty Diagnoses / Procedures Referred By Contac t Referred To Contact Ent - Otolaryngology Diagnoses Sneezing Procedures CONSULT TO ENT OFFICE/OUTPATIENT [facility] 60 MINUTES Ananya Fernandez APRN.CODING DIRECTOR [address] [place] [address] Referral ID Status Reason Start Date Expiration Date Visits Requested Visits Authorized [id number] Authorized PCP Requested Referral 03/07/2024 03/07/2025 1 1 Specialty Diagnoses / Procedures Referred By Contac t Referred To Contact Allergy Diagnoses Chronic rhinitis Procedures CONSULT TO ALLERGY/IMMUNOLOGY OFFICE/OUTPATIENT [facility] 60 MINUTES Mandi Rico, VIDEO GAME TECHNICIAN.CODING DIRECTOR [address] [place] [address] Referral ID Status Reason Start Date Expiration Date Visits Requested Visits Authorized [id number] Authorized PCP Requested Referral 05/14/2024 05/14/2025 1 1 Additional Source Comments Reason for Visit (unrecogniz ed section and content) Reason Comments Arm Pain Reason Comments Foot Swelling bilateral feet odor. Blisters on both toes. x1 month Reason Comments Cough Runny nose 1mth Reason Comments Breathing Problem X 1 mo Reason Comments Allergies X1 mth Reason Comments Allergies Started daily 1 year ago.nasal congestion. Specialty Diagnoses / Procedures Referred By Contac t Referred To Contact Ent - Otolaryngology Diagnoses Sneezing Procedures CONSULT TO ENT OFFICE/OUTPATIENT [facility] 60 MINUTES Ananya Fernandez APRN.CODING DIRECTOR [address] [place] [address] Referral ID Status Reason Start Date Expiration Date V isits Requested Visits Authorized [id number] Closed PCP Requested Referral 03/07/2024 03/07/2025 1 1 Reason Comments Nasal Congestion Chronic Reason Comments New Patient Chronic rhinitis Specialty Diagnoses / Procedures Referred By Contac t Referred To Contact Allergy Diagnoses Chronic rhinitis Procedures CONSULT TO ALLERGY/IMMUNOLOGY OFFICE/OUTPATIENT [facility] 60 MINUTES Mandi Rico, VIDEO GAME TECHNICIAN.CODING DIRECTOR [address] [place] [address] Referral ID Status Reason Start Date Expiration Date V isits Requested Visits Authorized [id number] Closed PCP Requested Referral 05/14/2024 05/14/2025 1 1 Reason Comments Nasal Congestion X6 months, sinus pre ssure Reason Comments Nasal Congestion X 1 year Reason Comments URI Pt has c/o stuffy no se Reason Comments Allergies Runny nose states sa me has been continuous Reason Comments Nasal Congestion x 1 year Reason Comments Well Adult Leonie Peacock, CODING DIRECTOR - 06/12/2020 12:18 AM EDT ED Notes (unrecognized secti on and content) Associated Order(s): Splint Application ED PROVIDER NOTE [facility] NAME: Juan Ramon Bryson AGE: 40 y.o. : 1980 VISIT DATE: 06/11/2020 CSN: [id number] PCP: [facility] Chief Complaint Patient presents with Arm Pain Patient presents to the emergency department complaints of fall with right shoulder right elbow pain. This is a 40-year-old male who states he was on a skateboard and fell onto his right arm. Patient denies hitting his head or loss of consciousness. Patient denies any head or neck pain. Patient denies any chest or abdominal pain. Patient states he is right-hand dominant and has had problems with his right shoulder with repair in the past. Patient denies any numbness or tingling. Patient has pain with external rotation of his right arm. Patient reports that he is up-to-date on tetanus. History provided by: Patient day care assistant used: No Arm Pain Location: Right elbow and right shoulder Chronicity: New Onset quality: Gradual Severity: Moderate Timing: Constant Progression: Worsening Associated symptoms: no abdominal pain, no chest pain, no cough, no diarrhea, no fever, no nausea, no rash, no sore throat, no vomiting and no wheezing Past Medical History: Diagnosis Date Philo's disease (HCC) Past Surgical History: Procedure Laterality Date shoulder injury History reviewed. No pertinent family history. Social History Socioeconomic History Marital status: Single Spouse name: Not on file Number of children: Not on file Years of education: Not on file Highest education level: Not on file Occupational History Not on file Social Needs Financial resource strain: Not on file Food insecurity Worry: Not on file Inability: Not on file Transportation needs Medical: Not on file Non-medical: Not on file Tobacco Use Smoking status: Never Smoker Smokeless tobacco: Never Used Substance and Sexual Activity Alcohol use: Never Frequency: Never Drug use: Never Sexual activity: Not on file Lifestyle Physical activity Days per week: Not on file Minutes per session: Not on file Stress: Not on file Relationships Social connections Talks on phone: Not on file Gets together: Not on file Attends sabianist service: Not on file Active member of club or organization: Not on file Attends meetings of clubs or organizations: Not on file Relationship status: Not on file Other Topics Concern Not on file Social History Narrative Not on file No current outpatient medications on file prior to encounter. No Known Allergies Review of Systems Constitutional: Negative for chills and fever. HENT: Negative for sore throat. Eyes: Negative for discharge and visual disturbance. Respiratory: Negative for cough, chest tightness and wheezing. Cardiovascular: Negative for chest pain. Gastrointestinal: Negative for abdominal distention, abdominal pain, diarrhea, nausea and vomiting. Genitourinary: Negative for dysuria, frequency and urgency. Musculoskeletal: Positive for joint swelling. Negative for back pain, neck pain and neck stiffness. Skin: Negative for rash. Neurological: Negative for dizziness. Hematological: Negative for adenopathy. Psychiatric/Behavioral: The patient is not nervous/anxious. All other systems reviewed and are negative. Patient Vitals for the past 24 hrs: BP Temp Temp src Pulse Resp SpO2 Height Weight 06/11/20 2347 135/83 80 18 98 % 06/11/20 2340 98.7 F (37.1 C) Oral 5' 10 85.7 kg (189 lb) Physical Exam Vitals signs and nursing note reviewed. Constitutional: Appearance: Normal appearance. He is well-developed. HENT: Head: Normocephalic. Right Ear: External ear normal. Left Ear: External ear normal. Nose: Nose normal. Eyes: Conjunctiva/sclera: Conjunctivae normal. Pupils: Pupils are equal, round, and reactive to light. Neck: Musculoskeletal: Normal range of motion and neck supple. Cardiovascular: Rate and Rhythm: Normal rate and regular rhythm. Heart sounds: Normal heart sounds. No murmur. No friction rub. Pulmonary: Effort: Pulmonary effort is normal. Breath sounds: No wheezing. Abdominal: General: Bowel sounds are normal. Palpations: Abdomen is soft. Musculoskeletal: Right shoulder: He exhibits decreased range of motion and tenderness. He exhibits no deformity. Right forearm: He exhibits swelling. Arms: Skin: General: Skin is warm and dry. Findings: No rash. Neurological: Mental Status: He is alert and oriented to person, place, and time. Psychiatric: Behavior: Behavior normal. Thought Content: Thought content normal. Judgment: Judgment normal. Laboratory & Radiographic Imaging (if done): No results found for this visit on 06/11/20. XR Shoulder Right 2+ Views (Standard) Final Result No acute osseous abnormality of the right shoulder and right elbow. Posterior elbow soft tissue swelling with minimal joint effusion. Workstation ID: [id number] XR Elbow Right 3+ Views (Standard) Final Result No acute osseous abnormality of the right shoulder and right elbow. Posterior elbow soft tissue swelling with minimal joint effusion. Workstation ID: [id number] Splint Application Date/Time: 06/12/2020 1:20 AM Performed by: Leonie Peacock CNP Authorized by: Cooper Cummings MD Verbal consent: obtained Location details: right arm Supplies used: elastic bandage Post-procedure: The splinted body part was neurovascularly intact following the procedure. Comments: Sling also applied to right arm. MDM Patient was updated on plan of care. Patient did have a right elbow joint effusion. Patient did not have any evidence of dislocated fracture of the elbow or the right shoulder. Clavicle intact. Patient wound was cleansed with normal saline with Neosporin applied and bandage. Patient was placed in Miguel wrap and a sling. Patient was told to follow-up with his primary care physician next of appointment for follow-up.. The patient has been informed that they may have pre-hypertension or hypertension based on a blood pressure reading in the Emergency Department. I recommend that the patient call the primary care provider listed on their discharge instructions or a physician of their choice as soon as possible to arrange follow-up in the next 4 weeks for further evaluation of possible pre-hypertension or hypertension. . Clinical Impression: No diagnosis found. ED Disposition None Follow-up Information Follow-up information has not been specified. Contact information for after-discharge care Follow-up information has not been specified. Leonie Peacock CNP 06/12/20119 Leonie Peacock CNP 06/12/20119 documented in this encounter ED Attestation Note - Cooper Cummings MD - 06/12/2020 12:10 AM EDT Miscellaneous Notes (unrecog nized section and content) ED Attestation: I was personally available for consult in the emergency department. I have reviewed the chart and agree with the documentation as recorded by the JESSY (Advanced Practice Provider), including the assessment, treatment plan, and disposition documented in this encounter (unrecognized sect ion and content) No Status Records FoundNo Status Records FoundNo Status Records FoundNo Status Records FoundNo Status Records FoundNo Status Records FoundNo Status Records Found INFORMATION SOURCE (unrecogn ized section and content) DATE CREATED AUTHOR 11/27/2020 [facility] DATE CREATED AUTHOR AUTHOR'S ORGANIZ ATION 12/02/2020 [facility] DATE CREATED AUTHOR AUTHOR'S ORGANIZ ATION 05/01/2021 [facility] DATE CREATED AUTHOR AUTHOR'S ORGANIZ ATION 11/30/2021 [facility] DATE CREATED AUTHOR AUTHOR'S ORGANIZ ATION 09/27/2024 [facility] DATE CREATED AUTHOR AUTHOR'S ORGANIZ ATION 11/03/2024 [facility] DATE CREATED AUTHOR AUTHOR'S ORGANIZ ATION 01/28/2025 [facility] Goals (unrecognized section and content) Goals may be documented in a n alternate section Source Comments (unrecognize d section and content) In the event this informatio n is protected by the Federal Confidentiality of Alcohol and Drug Abuse Patient Records regulations: The Federal rules restrict any use of the information to criminally investigate or prosecute any alcohol or drug abuse patient.[facility] the event this information is protected by the Federal Confidentiality of Alcohol and Drug Abuse Patient Records regulations: The Federal rules restrict any use of the information to criminally investigate or prosecute any alcohol or drug abuse patient.[facility] the event this information is protected by the Federal Confidentiality of Alcohol and Drug Abuse Patient Records regulations: The Federal rules restrict any use of the information to criminally investigate or prosecute any alcohol or drug abuse patient.[facility] the event this information is protected by the Federal Confidentiality of Alcohol and Drug Abuse Patient Records regulations: The Federal rules restrict any use of the information to criminally investigate or prosecute any alcohol or drug abuse patient.[facility] the event this information is protected by the Federal Confidentiality of Alcohol and Drug Abuse Patient Records regulations: The Federal rules restrict any use of the information to criminally investigate or prosecute any alcohol or drug abuse patient.[facility] the event this information is protected by the Federal Confidentiality of Alcohol and Drug Abuse Patient Records regulations: The Federal rules restrict any use of the information to criminally investigate or prosecute any alcohol or drug abuse patient.[facility] the event this information is protected by the Federal Confidentiality of Alcohol and Drug Abuse Patient Records regulations: The Federal rules restrict any use of the information to criminally investigate or prosecute any alcohol or drug abuse patient.[facility] the event this information is protected by the Federal Confidentiality of Alcohol and Drug Abuse Patient Records regulations: The Federal rules restrict any use of the information to criminally investigate or prosecute any alcohol or drug abuse patient.[facility] the event this information is protected by the Federal Confidentiality of Alcohol and Drug Abuse Patient Records regulations: The Federal rules restrict any use of the information to criminally investigate or prosecute any alcohol or drug abuse patient.[facility] the event this information is protected by the Federal Confidentiality of Alcohol and Drug Abuse Patient Records regulations: The Federal rules restrict any use of the information to criminally investigate or prosecute any alcohol or drug abuse patient.[facility] the event this information is protected by the Federal Confidentiality of Alcohol and Drug Abuse Patient Records regulations: The Federal rules restrict any use of the information to criminally investigate or prosecute any alcohol or drug abuse patient.[facility] the event this information is protected by the Federal Confidentiality of Alcohol and Drug Abuse Patient Records regulations: The Federal rules restrict any use of the information to criminally investigate or prosecute any alcohol or drug abuse patient.[facility] Care Teams (unrecognized sec tion and content) Automotive Product Specialist Relationship Specialty Start Date End Date Jessa Mcgrath, VIDEO GAME TECHNICIAN.CODING DIRECTOR [address] [place] [id number] PCP - General Internal Medicine 09/06/23 Automotive Product Specialist Relationship Specialty Start Date End Date Jessa Mcgrath VIDEO GAME TECHNICIAN.CODING DIRECTOR [address] [place] [address] PCP - General Internal Medicine 09/06/23 Automotive Product Specialist Relationship Specialty Start Date End Date Jessa Mcgrath, VIDEO GAME TECHNICIAN.CODING DIRECTOR [address] [place] [address] PCP - General Internal Medicine 09/06/23 Automotive Product Specialist Relationship Specialty Start Date End Date Jessa Mcgrath VIDEO GAME TECHNICIAN.CODING DIRECTOR [address] [place] [address] PCP - General Internal Medicine 09/06/23 Automotive Product Specialist Relationship Specialty Start Date End Date Jessa Mcgrath VIDEO GAME TECHNICIAN.CODING DIRECTOR [address] [place] [address] PCP - General Internal Medicine 09/06/23 Automotive Product Specialist Relationship Specialty Start Date End Date Jessa Mcgrath VIDEO GAME TECHNICIAN.CODING DIRECTOR [address] [place] [address] PCP - General Internal Medicine 09/06/23 Automotive Product Specialist Relationship Specialty Start Date End Date Jessa Mcgrath, VIDEO GAME TECHNICIAN.CODING DIRECTOR [address] [place] [address] PCP - General Internal Medicine 09/06/23 Automotive Product Specialist Relationship Specialty Start Date End Date Jessa Mcgrath VIDEO GAME TECHNICIAN.CODING DIRECTOR [address] [place] [address] PCP - General Internal Medicine 09/06/23 Automotive Product Specialist Relationship Specialty Start Date End Date RayJessa APRN.[facility] [address] [place] [address] PCP - General Internal Medicine 09/06/23 FOR RECORDS PERTAINING TO PATIENTS WHO ARE OR HAVE BEEN ENROLLED IN A CHEMICAL DEPENDENCY/SUBSTANCEABUSE PROGRAM, SOME INFORMATION MAY BE OMITTED. This clinical summary was aggregated from multiple sources. Caution should be exercised in using it in the provision of clinical care. This summary normalizes information from multiple sources, and as a consequence, information in this document may materially change the coding, format and clinical context of patient data. In addition, data may be omitted in some cases. CLINICAL DECISIONS SHOULD BE BASED ON THE PRIMARY CLINICAL RECORDS. [employer] [facility]. provides no warranty or guarantee of the accuracy or completeness of information in this document.
--- NOTE | 2025-06-26 18:29 | ED.RN ---
Patient repeatedly in hallway refusing to return to room and arguing with staff
--- NOTE | 2025-06-26 18:30 | ED.RN ---
Patient noted to be in hallway without clothes on, in gown with gown open in the front, and underwear only. Patient redirected into room and told he cannot be in the hallway exposed. Patient came back out of the hallway fully dressed stating he wants his discharge paperwork and is going home, Patient told he has to wait in his room and paperwork will be brought in when ready. Patient redirected x2 more. This RN bedside with HRO to explain to the patient that he is pink slipped and will have to remove his clothing and place the gown back on. Patient then became aggressive physically with HRO, staff assist button pushed. Patient placed in 4 point hard restraints at this time due to staff safety risk and aggressive behavior. Dr. Aleman notified. Clothing removed and patient placed in gown.
[2025-06-26 18:31] VITALS: BP 139/82; PULSE 92; RESP 24; O2SAT 94
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
[2025-06-26 19:14] LABS: Hematocrit 43.0 % (40-54); Hemoglobin 14.8 g/dL (13.0-16.5); Immature Granulocytes Count 0.020 X10^3/uL (0.0-0.0); Mean Corp Hgb Conc 34.4 g/dL (32-36); Mean Corpuscular Volume 84.5 fL (80-94); Mean Platelet Vol. 8.6 fl (6.2-12.0); NRBC Flagged by Analyzer 0 % (0-5); Platelet Count 257 K/mm3 (150-450); RBC Distribution Width CV 12.9 % (11.6-14.6); RBC Distribution Width SD 39.8 fl (35.1-43.9); Red Blood Count 5.09 M/mm3 (4.6-6.2); White Blood Count 7.9 K/mm3 (4.4-11.0)
[2025-06-26] MEDS: Ziprasidone IM 20 MG/ML VIAL IM (19:26)
--- NOTE | 2025-06-26 19:28 | ED.RN ---
Pt in restraints in room, thrashing, yelling, unable to redirect. Medicated with joann per Dr Aleman.
[2025-06-26 19:32] LABS: Alcohol, Blood (Medical)-Serum < 10.1 mg/dL (<=10.0)
[2025-06-26 19:34] LABS: AST(SGOT) 23 U/L (<=37); Alanine Aminotransfer ALT/SGPT 24 U/L (<=46); Albumin, Serum 4.4 g/dL (3.5-5.0); Alkaline Phosphatase 98 U/L (40-129); Anion Gap 15 (5-15); BUN 18 mg/dL (4-19); BUN/Creat Ratio 18.2 RATIO (10-20); Calcium,Total 9.3 mg/dL (7.6-11.0); Carbon Dioxide 21.2 mmol/L (21.0-32.0); Chloride 106 mmol/L (98-108); Estimated Creatinine Clearance 98.31 ml/min (50-250); Globulin 2.7 g/dL (2.2-4.2); Glucose 118 mg/dL (70-99); Potassium 3.3 mmol/L (3.3-5.1)
[2025-06-26 19:55] LABS: Mucous, Urine 0 SEEN /hpf (<or=2+)
[2025-06-26 19:58] LABS: Color, Urine Yellow (Yellow); Glucose, Dipstick Normal (Normal); Ketone-Dipstick 5 mg/dl (Negative); Leukocyte Esterase-Dipstick Negative /ul (Negative); Nitrite-Dipstick Negative (Negative); Occult Blood-Urine Negative /ul (Negative); Protein-Dipstick 30 mg/dl (Negative); Specific Gravity, Urine 1.030 (1.002-1.030); Urine Bilirubin Dipstick Negative (Negative)
[2025-06-26 20:00] VITALS: BP 98/61; PULSE 71; RESP 23; O2SAT 96
[2025-06-26 20:35] LABS: Barbiturate Urine NEGATIVE (< 200 ng/mL); Benzodiazepine Urine NEGATIVE (< 200 ng/mL); PCP Urine NEGATIVE (< 25 ng/mL); THC Urine NEGATIVE (< 50 ng/mL)
[2025-06-26 20:37] LABS: Red Blood Cells-Urine 0-5 SEEN /hpf (0-5); Squamous Epithelial Cells - UA 0-5 SEEN /hpf (0-5)
[2025-06-26 22:00] VITALS: BP 96/65; PULSE 64; RESP 16; O2SAT 84
[2025-06-26 22:05] VITALS: O2SAT 100
[2025-06-27] VITALS: BP 114/82; PULSE 68; RESP 18; O2SAT 100
--- NOTE | 2025-06-27 01:44 | PCA ---
MARILYN KIRK CALLED, REQUESTED A CALL IF ANYTHING CHANGES WITH PT.
[2025-06-27 02:00] VITALS: BP 120/76; PULSE 58; RESP 18; O2SAT 98
--- NOTE | 2025-06-27 06:20 | ED.RN ---
attempted to called report for patient, no answer
[2025-06-27 07:51] VITALS: BP 121/78; PULSE 61; RESP 16; TEMP 36.6; O2SAT 98
== END 2025-06-27 07:54 | disposition short-term general hospital (02) ==
PROVIDERS: Emergency Provider Emergency Medicine; Visit Provider Emergency Medicine
DX: G10 Huntington's disease (principal); E78.00 Pure hypercholesterolemia, unspecified; R45.1 Restlessness and agitation; R46.89 Other symptoms and signs involving appearance and behavior
CPT/HCPCS: 80053; 80307; 81001; 82077; 85025; 96372; 99284; J3486